=== PATIENT | female | born 1950 | race Caucasian/White ===

== ENCOUNTER 2020-03-03 11:42 | Outpatient (CLI) | payer MEDICARE, MEDICAID, SELFPAY ==
--- NOTE | ~2020-03-03 | XR_ITS ---
XR ankle RT min 3V 03/03/2020 12:09 INDICATION: Right ankle pain. No known injury. PROCEDURE: 4 views right ankle COMPARISON: No prior studies for comparison. FINDINGS: Fracture, dislocation or subluxation is not identified. The soft tissues appear within norm al limits. No foreign bodies are identified. IMPRESSION: 1: NO ACUTE BONE OR JOINT ABNORMALITY IDENTIFIED. Reviewed, dictated and finalized at location A.
== END 2020-03-03 11:43 | disposition home or self-care (01) ==
PROVIDERS: PCP Internal Medicine; Visit Provider Nurse Practitioner Family
DX: M25.571 Pain in right ankle and joints of right foot (principal)
CPT/HCPCS: 73610

== ENCOUNTER 2020-03-16 08:59 | Outpatient (CLI) | payer MEDICARE, MEDICAID, SELFPAY ==
[2020-03-16 09:32] LABS: Uric Acid 4.4 mg/dL (2.5-7.5)
== END 2020-03-16 09:00 | disposition home or self-care (01) ==
PROVIDERS: PCP Internal Medicine; Visit Provider Clinical Nurse Specialist
DX: M10.9 Gout, unspecified (principal)
CPT/HCPCS: 36415; 84550

== ENCOUNTER 2020-08-01 18:25 | Outpatient (CLI) | payer MEDICARE, MEDICAID, SELFPAY ==
--- NOTE | ~2020-08-01 | XR_ITS ---
EXAMINATION: XR chest 2V EXAM DATE: 08/01/2020 18:41 INDICATION: Cough for a few weeks. Shortness of breath. TECHNIQUE: Frontal and lateral projections of the chest obtained and reviewed. Comparison is made to prior examination from 03/31/2010. FINDINGS: The lungs are hyperinflated which can be seen with chronic obstructive pulmonary disease ( a clinical diagnosis of functional impairment), but is not diagnostic of it. No confluent consolidat ion, pneumothorax or pleural effusion suspected. Cardiomediastinal silhouette is normal. There is aor tic arteriosclerosis. There are mild bony degenerative changes. IMPRESSION: 1. Moderate hyperinflation. Reviewed, dictated and finalized at location B. IMPRESSION: 1. Moderate hyperinflation.
== END 2020-08-01 18:26 | disposition home or self-care (01) ==
PROVIDERS: PCP Internal Medicine; Visit Provider Clinical Nurse Specialist
DX: R05 Cough (principal); R06.02 Shortness of breath
CPT/HCPCS: 71046

== ENCOUNTER → 2020-08-31 14:48 | Outpatient (CLI) | payer MEDICARE, MEDICAID, SELFPAY ==
--- NOTE | ~2020-08-31 | XR_ITS ---
EXAMINATION: XR knee RT 2V DATE: 08/31/2020 15:25 INDICATION: Right knee pain. TECHNIQUE: 2 views of right knee were obtained. COMPARISON: Right knee radiographs 06/16/2015 FINDINGS: Bone alignment is normal. No fracture. There is mild tricompartmental osteoarthritis. There is chondrocalcinosis of the menisci. There is a small knee joint effusion. IMPRESSION: 1. Mild right knee osteoarthritis. 2. Small right knee joint effusion. Reviewed, dictated and finalized at location A. O TECHNICIAN
--- NOTE | ~2020-08-31 | XR_ITS ---
EXAMINATION: XR knee LT 2V DATE: 08/31/2020 15:26 INDICATION: Left knee pain. TECHNIQUE: 2 views of left knee were obtained. COMPARISON: Left knee radiographs 06/16/2015 FINDINGS: Bone alignment is normal. No fracture. There is mild tricompartmental osteoarthritis. There is chondrocalcinosis of the menisci. No knee joint effusion. IMPRESSION: 1. Mild left knee osteoarthritis. Reviewed, dictated and finalized at location A. ALLATION TECH
== END ==
PROVIDERS: Visit Provider Nurse Practitioner Family
DX: M17.0 Bilateral primary osteoarthritis of knee (principal); M25.461 Effusion, right knee
CPT/HCPCS: 73560

== ENCOUNTER → 2020-10-07 12:20 | Outpatient (CLI) | payer MEDICARE, MEDICAID, SELFPAY ==
--- NOTE | ~2020-10-07 | MM_ITS ---
EXAMINATION: MM screening syed BI w kayla HISTORY: Screening TECHNIQUE: Craniocaudal and mediolateral oblique 3-D tomosynthesis images were obtained and synthetic 2-D images were generated. CAD analysis was submitted and interpreted. COMPARISON: Comparison to multiple prior studies sequentially, with oldest reviewed study dated 06/16. BREAST PARENCHYMAL COMPOSITION: There are scattered areas of fibroglandular density. FINDINGS: There is no evidence of suspicious mass, calcification, or architectural distortion to sugg est malignancy in either breast. There has been no suspicious interval change. IMPRESSION: 1. No mammographic evidence of malignancy. 2. Recommend routine screening mammography in one year. BI-RADS Category 1: Negative Reviewed, dictated and finalized at location A. CH TRIMMER FINE
== END ==
PROVIDERS: PCP Internal Medicine; Visit Provider Internal Medicine
DX: Z12.31 Encounter for screening mammogram for malignant neoplasm of breast (principal)
CPT/HCPCS: 77063; 77067

== ENCOUNTER 2020-12-30 08:37 | Outpatient (CLI) | payer MEDICARE, MEDICAID, SELFPAY ==
[2020-12-30 08:59] LABS: Basophils Absolute Auto 0.1 K/mm3 (0.0-0.1); Basophils Percent Auto 0.7 % (0.2-1.2); Eosinophils Absolute Auto 0.2 K/mm3 (0-0.3); Eosinophils Percent Auto 2.2 % (0-4.4); Hematocrit 41.5 % (37.0-47.0); Hemoglobin 13.4 g/dL (12.0-15.0); Immature Granulocyte Absolute 0.02 K/mm3 (0.00-0.031); Immature Granulocyte Percent A 0.2 % (0-0.5); Lymphocytes Absolute Auto 1.89 K/mm3 (0.9-3.2); Lymphocytes Percent Auto 22.1 % (18.3-44.2); Mean Corpuscular HGB Conc 32.3 g/dl (32-36); Mean Corpuscular Hemoglobin 29.8 pg (26-34); Mean Corpuscular Volume 92.2 fl (80-100); Mean Platelet Volume 9.4 fl (7.4-10.4); Monocytes Absolute Auto 0.9 K/mm3 (0.1-0.6); Neutrophils Absolute Auto 5.5 K/mm3 (1.3-6.7); Neutrophils Percent Auto 64.8 % (45.5-73.1); Platelet Count Result 333 k/mm3 (150-375); Red Cell Distribution Width 12.9 % (11.5-14.5); White Blood Count 8.6 K/mm3 (4.5-10.0)
[2020-12-30 09:12] LABS: Alanine Aminotransferase 17 U/L (4-35); Albumin Level 4.1 g/dL (3.5-5.1); Alkaline Phosphatase 80 U/L (38-126); Anion Gap 4 mmol/L (8-16); Aspartate Amino Transferase 24 U/L (14-36); Bilirubin,Total 0.6 mg/dL (0.2-1.3); Blood Urea Nitrogen 24 mg/dL (7-17); Calcium 8.9 mg/dL (8.4-10.2); Carbon Dioxide 33 mmol/L (22-30); Chloride 104 mmol/L (98-107); Cholesterol 179 mg/dL (0-200); Estimated Glomerular Filt Rate > 60; Glucose 90 mg/dL (65-105); HDL Direct 54 mg/dL; Potassium 4.3 mmol/L (3.4-5.0); Sodium 141 mmol/L (137-145); Triglycerides 104 mg/dL (<150)
[2020-12-30 09:23] LABS: LDL Cholesterol Direct 88 mg/dL
== END 2020-12-30 08:38 | disposition home or self-care (01) ==
PROVIDERS: PCP Internal Medicine; Visit Provider Nurse Practitioner
DX: E78.5 Hyperlipidemia, unspecified (principal); I10 Essential (primary) hypertension; M19.90 Unspecified osteoarthritis, unspecified site
CPT/HCPCS: 36415; 80053; 80061; 85025

== ENCOUNTER 2021-01-18 15:04 | Outpatient (CLI) | payer MEDICARE, MEDICAID, SELFPAY ==
[2021-01-18 16:20] LABS: Add Urine Microscopic? YES; Appearance Urine Cloudy (Clear); Bacteria Urine Trace /hpf; Bilirubin Urine Negative (Negative); Color Urine Yellow (Yellow); Glucose Urine UA Negative (Negative); Ketones Urine Negative (Negative); Leukocyte Esterase Ur 3+ LEU/UL (Negative); Mucus Urine Rare /lpf; Nitrate Urine Negative (Negative); Protein Urine Negative (Negative); Specific Grav Ur 1.021 (1.001-1.035); Squamous Epithelial Cell Urine Many /hpf (Few); Urobilinogen Urine Negative mg/dL (<2.0)
[2021-01-18 16:34] LABS: Blood Urine Negative (Negative)
== END 2021-01-18 15:05 | disposition home or self-care (01) ==
LOC: ANHLAB 15:07
PROVIDERS: PCP Internal Medicine; Visit Provider Nurse Practitioner
DX: R30.0 Dysuria (principal)
CPT/HCPCS: 81001; 87086

== ENCOUNTER 2021-02-03 14:24 | Outpatient (CLI) | payer MEDICARE, MEDICAID, SELFPAY ==
--- NOTE | 2021-02-03 16:42 | WPDSIXMINUTE ---
Six Minute Walk This is a 6 minutes walk test. The test was performed and interpreted in accordance with the 2014 ERS/ATS task force guidelines. Findings: The patient's resting room air oxygen saturation measured by pulse oximetry was 96% and her heart rate was 63 bpm. Patient ambulated for 335 meters and oxygen saturation remained 91 to 95%. Heart rate at the end of the study was 84 bpm. There are no prior studies for comparison. Six Minute Walk Procedure Procedure Performed Pulmonary Stress Test (6 min walk)
--- NOTE | 2021-02-03 16:43 | P.PCNPFT_ITS ---
PFT Interpretation This is a pulmonary function test with pre and post-bronchodilator spirometry, plethysmography and diffusing capacity. The test was performed and results interpreted in accordance with the 2019 and 2005 ATS/ERS Task Force guidelines respectively using the Global Lung Function Initiative-2012 reference equations. Patient demonstrated good effort and c ooperation. Reproducibility criteria were met. The quality of the pre bronchodilator spirometry maneuver was Grade A and post bronchodilator spirometry maneuver was Grade A. Findings: Spirometry: there is decreased maximal expiratory airflow at all lung volumes with a concave expiratory flow tracing. The contour the inspiratory flow tracing is normal. The pre bronchodilator FVC is 2.76 L, 86% predicted. The pre bronchodilator FEV1 is 1.24 L, 50% predicted. The FEV1: FVC ratio is 45%. The post bronchodilator FVC is 2.91 L, representing a 5% increase. The post bronchodilator FEV1 is 1.50 L, representing a 21% increase. Plethysmography: The total lung capacity is 6.45 L, 114% predicted. The functional residual capacity is 4.57, 140% predicted. The residual volume is 3.69 L, 152% predicted. Diffusion capacity: The absolute diffusion capacity is 15.0, 68% predicted. The diffusing capacity corrected for alveolar volume is 3.77, 93% predicted. Impression: There is a moderately severe obstructive abnormality with significant improvement after inhaling a single dose of albuterol. The increase in residual volume is consistent with air trapping from an obstructive abnormali ty. Hyperinflation is present is demonstrated by the increase in functional residual capacity and is consistent with an obstructive abnormality. The absolute diffusing capacity is mildly decreased and normalizes when corrected for alveolar volume. There are no prior studies for comparison PFT Procedure Performed PFT Procedure Performed Spirometry with Pre/Post Bronchodilator Plethysmography (Lung Vol) Diffusing Cap (DLCO)
== END 2021-02-03 14:25 | disposition home or self-care (01) ==
PROVIDERS: PCP Internal Medicine; Visit Provider Internal Medicine Critical Care Medicine
DX: J44.9 Chronic obstructive pulmonary disease, unspecified (principal); R94.2 Abnormal results of pulmonary function studies
CPT/HCPCS: 94060; 94618; 94726; 94729

== ENCOUNTER 2021-02-07 10:04 | Outpatient (CLI) | payer MEDICARE, MEDICAID, SELFPAY ==
--- NOTE | 2021-02-27 14:17 | WPDHOMESLEEP ---
Sleep Study - Home Unattended Date of Study: 02/07/21 Ordering Provider: Manjinder Haddad MD Interpreting Provider: Eden Holden MD Home Sleep Study Type: Apnea Link Air Height: 1.73 m Weight: 95.254 kg Body Mass Index: 31.9 Neck Circumference (inches): 15.75 [place]: 6 Reason for Sleep Study Loud snoring Sleep History [place] Ambriz is a 70 year old female who constantly snores. Occasionally it is loud enough that there is complain about. She rarely awakens at night with heartburn, belching or coughing. She does not awaken from sleep feeling short of breath. She does not have trouble sleep with a cold. She does not gasp for breath during the night. She does not have breathing problems at night observed by others. She rarely sweats excessively at night. She occasionally notices her heart pounding or beating irregularly night. She does not fall asleep during the day. She rarely falls asleep involuntarily and never while driving. She does not have loss of muscle tone was strong emotion. She does not have daytime difficulties due to excessive sleepiness. She does not feel paralyzed on waking or falling asleep. She does not have vivid dreamlike scenes upon awakening or falling asleep. She does not feel afraid to go to sleep. She rarely has nightmares and rarely remembers her dreams. She does not have racing thoughts. She occasionally feels sad or depressed. She does not have anxiety. She rarely has muscular tension. She occasionally notices parts of her body jerking. She occasionally kicks at night. She frequently has crawling and aching feelings in the legs and leg pain at night. She does not have morning jaw pain. She constantly is bothered by pain during the day and constantly is awakened by pain at night. She frequently wakes up feeling stiff the morning with sore achy muscles. She frequently wakes up with pain in the neck and spine. She has palpitations and takes antacids regularly. She feels depressed at times. Normal bedtime is 12 midnight taking 5-15 minutes to fall asleep typically awaken 2-4 times at night for a few minutes, gets a drink of water goes to the bathroom and is able to return to sleep. She wakes the morning between 6 and 7:00 a.m.. Weekend schedule is the same. Her sleep is disturbed by nocturia. She does not take naps. Habits: Quit tobacco years ago. Caffeine 3 cups a day. No alcohol or recreational drugs. [facility] Past Medical History Medical History (Updated 02/27/21 @ 14:33 by Eden Holden MD) Chicken pox COPD (chronic obstructive pulmonary disease) Environmental allergies Essential hypertension Heartburn HLD (hyperlipidemia) Hypercholesterolemia Kidney disease Lumbar radiculopathy Osteoarthritis TB (tuberculosis), treated Thyroid disease Whooping cough treated Surgical History Surgical History H/O prior ablation treatment Ventricular tachycardia ablation History of cholecystectomy History of hysterectomy History of knee surgery History of tonsillectomy and adenoidectomy Family History Family History Sibling Family history of lung cancer Hypertension Father Lung cancer COPD (chronic obstructive pulmonary disease) Mother Sepsis Asthma COPD (chronic obstructive pulmonary disease) Hx of blood clots Sibling Asthma COPD (chronic obstructive pulmonary disease) Anemia Son Hypertension Diabetes mellitus HLD (hyperlipidemia) Other Cerebrovascular accident Family history of arthritis Family history of lung disease Family history of seizure disorder Social History Social History Smoking status: Former smoker Smoking end date: 10/28/06 Alcohol intake: never Medications Home Medications Medication Instructions Recorded Confirmed Type ascorbate calcium (vitamin C)
[2021-02-27 14:49] VITALS: BMI 31.9
== END 2021-02-07 10:05 | disposition home or self-care (01) ==
LOC: ANHCSM 10:05
PROVIDERS: PCP Internal Medicine; Visit Provider Internal Medicine Critical Care Medicine
DX: J44.9 Chronic obstructive pulmonary disease, unspecified (principal)
CPT/HCPCS: 95806

== ENCOUNTER 2021-04-10 16:28 | Outpatient (CLI) | payer MEDICARE, MEDICAID, SELFPAY ==
[2021-04-10 17:23] LABS: Basophils Percent Auto 0.1 % (0.2-1.2); Hematocrit 41.5 % (37.0-47.0); Hemoglobin 13.9 g/dL (12.0-15.0); Immature Granulocyte Absolute 0.12 K/mm3 (0.00-0.031); Immature Granulocyte Percent A 0.8 % (0-0.5); Lymphocytes Absolute Auto 0.72 K/mm3 (0.9-3.2); Mean Corpuscular HGB Conc 33.5 g/dl (32-36); Mean Corpuscular Hemoglobin 29.4 pg (26-34); Mean Corpuscular Volume 87.7 fl (80-100); Mean Platelet Volume 9.6 fl (7.4-10.4); Monocytes Absolute Auto 0.1 K/mm3 (0.1-0.6); Monocytes Percent Auto 0.8 % (2.6-8.5); Neutrophils Absolute Auto 13.3 K/mm3 (1.3-6.7); Neutrophils Percent Auto 93.3 % (45.5-73.1); Platelet Count Result 387 k/mm3 (150-375); Red Blood Count 4.73 M/mm3 (4.2-5.4); White Blood Count 14.3 K/mm3 (4.5-10.0)
[2021-04-10 17:32] LABS: Alanine Aminotransferase 19 U/L (4-35); Albumin Level 4.4 g/dL (3.5-5.1); Alkaline Phosphatase 88 U/L (38-126); Anion Gap 9 mmol/L (8-16); Aspartate Amino Transferase 23 U/L (14-36); Bilirubin,Total 0.5 mg/dL (0.2-1.3); Blood Urea Nitrogen 14 mg/dL (7-17); Calcium 9.7 mg/dL (8.4-10.2); Carbon Dioxide 33 mmol/L (22-30); Chloride 99 mmol/L (98-107); Estimated Glomerular Filt Rate > 60; Glucose 145 mg/dL (65-105); Potassium 3.6 mmol/L (3.4-5.0); Sodium 141 mmol/L (137-145)
[2021-04-10 18:01] LABS: Thyroid Stimulating Hormone 0.424 uIU/mL (0.465-4.680)
== END 2021-04-10 16:29 | disposition home or self-care (01) ==
PROVIDERS: PCP Internal Medicine; Visit Provider Nurse Practitioner
DX: M54.2 Cervicalgia (principal)
CPT/HCPCS: 36415; 80053; 84443; 85025

== ENCOUNTER → 2021-04-18 02:23 | Outpatient (CLI) | payer MEDICARE, MEDICAID, SELFPAY ==
[2021-04-19 16:05] LABS: SARS-CoV-2 RNA PCR Negative
== END ==
PROVIDERS: PCP Internal Medicine; Visit Provider Internal Medicine Critical Care Medicine
DX: Z20.822 Contact with and (suspected) exposure to COVID-19 (principal)
CPT/HCPCS: C9803; U0003; U0005

== ENCOUNTER 2021-04-18 10:21 | Outpatient (CLI) | payer MEDICARE, MEDICAID, SELFPAY ==
--- NOTE | ~2021-04-18 | MR_ITS ---
EXAMINATION: MR brain/brain stem wo/w con DATE: 04/18/2021 11:48 INDICATION: Headache TECHNIQUE: Magnetic resonance imaging (MRI) of the brain and brainstem was performed without and with 19 cc MultiHance intravenous contrast. Sequences included sagittal and axial T1-weighted SE, axial d iffusion-weighted FS SE, axial T2*-weighted GRE, axial T2-weighted FLAIR Propeller, and axial T2-weig hted Propeller. Apparent diffusion coefficient (ADC) maps were created. COMPARISON: No prior studies for comparison. . FINDINGS: Normal brain parenchymal volume for age. Normal oconnor-white differentiation. No evidence for acute infarction, hemorrhage, mass or mass effect. No abnormal contrast enhancement. There are scatt ered mild periventricular and subcortical white matter changes, most likely related to small vessel i schemic disease (microangiopathy). Paranasal sinuses are unremarkable. Orbits are symmetric without d isconjugate gaze. IMPRESSION: 1. No acute intracranial abnormality. 2: Chronic age-related findings. Reviewed, dictated and finalized at location B.
== END 2021-04-18 10:22 | disposition home or self-care (01) ==
PROVIDERS: PCP Internal Medicine; Visit Provider Nurse Practitioner
DX: R51.9 Headache, unspecified (principal); H53.8 Other visual disturbances
CPT/HCPCS: 70553; A9577; C9803; U0003; U0005

== ENCOUNTER 2021-04-21 08:54 | Outpatient (CLI) | payer MEDICARE, MEDICAID, SELFPAY ==
--- NOTE | 2021-05-15 11:30 | WPDSLEEPSTUD ---
Sleep Study Date of Study: 04/21/21 Ordering Provider: Manjinder HaddadMD Interpreting Physician: Eden Holden MD Sleep Study Type: CPAP Titration Height: 1.73 m Weight: 77.564 kg Body Mass Index: 25.9 Neck Circumference (inches): 17.5 Reason for Sleep Study [place] Ambriz is a 70-year-old female with COPD and a prior home sleep test on February 07, 2021 with moderate obstructive sleep apnea AHI is 26.3, desaturation to 80% and 41 minutes spent below 88% with frequent snoring. She presents now for a CPAP titration. Sleep History [place] Ambriz complains of constant snoring which is occasionally loud enough that others complain. She rarely awakens at night with heartburn, belching or coughing. She does not awaken from sleep feeling short of breath. She does not have trouble sleep with a cold. She does not gasp for breath during the night. She does not have breathing problems at night observed by others. She rarely sweats excessively at night. She occasionally notices her heart pounding or beating irregularly night. She does not fall asleep during the day. She rarely falls asleep involuntarily and never while driving. She does not have loss of muscle tone with strong emotion. She does not have daytime difficulties due to excessive sleepiness. She does not feel paralyzed on waking or falling asleep. She does not have vivid dreamlike scenes upon awakening or falling asleep. She does not feel afraid to go to sleep. She rarely has nightmares and rarely remembers her dreams. She does not have racing thoughts. She occasionally feels sad or depressed. She does not have anxiety. She rarely has muscular tension. She occasionally notices parts of her body jerking. She occasionally kicks at night. She frequently has crawling and aching feelings in the legs and leg pain at night. She does not have morning jaw pain. She constantly is bothered by pain during the day and constantly is awakened by pain at night. She frequently wakes up feeling stiff the morning with sore achy muscles. She frequently wakes up with pain in the neck and spine. She has palpitations and takes antacids regularly. She feels depressed at times. Normal bedtime is 12 midnight taking 5-15 minutes to fall asleep typically awaken 2-4 times at night for a few minutes, gets a drink of water goes to the bathroom and is able to return to sleep. She wakes the morning between 6 and 7:00 a.m.. Weekend schedule is the same. Her sleep is disturbed by nocturia. She does not take naps. Habits: Quit tobacco years ago. Caffeine 3 cups a day. No alcohol or recreational drugs. [facility] Past Medical History Medical History Chicken pox COPD (chronic obstructive pulmonary disease) Environmental allergies Essential hypertension Heartburn HLD (hyperlipidemia) Hypercholesterolemia Kidney disease Lumbar radiculopathy Osteoarthritis TB (tuberculosis), treated Thyroid disease Whooping cough treated Surgical History Surgical History H/O prior ablation treatment Ventricular tachycardia ablation History of cholecystectomy History of hysterectomy History of knee surgery History of tonsillectomy and adenoidectomy Family History Family History Sibling Family history of lung cancer Hypertension Father Lung cancer COPD (chronic obstructive pulmonary disease) Mother Sepsis Asthma COPD (chronic obstructive pulmonary disease) Hx of blood clots Sibling Asthma COPD (chronic obstructive pulmonary disease) Anemia Son Hypertension Diabetes mellitus HLD (hyperlipidemia) Other Cerebrovascular accident Family history of arthritis Family history of lung disease Family history of seizure disorder Social History Social History (Updated 05/03/21 @ 15:12 by Stella Coffman CMA) Social History:
[2021-05-15 11:33] VITALS: BMI 25.9
== END 2021-04-24 09:52 | disposition home or self-care (01) ==
LOC: ANHCSM 08:55
PROVIDERS: PCP Internal Medicine; Visit Provider Internal Medicine Critical Care Medicine
DX: G47.33 Obstructive sleep apnea (adult) (pediatric) (principal); G25.81 Restless legs syndrome
CPT/HCPCS: 95811

== ENCOUNTER 2021-04-26 14:56 | Outpatient (CLI) | payer MEDICARE, MEDICAID, SELFPAY ==
[2021-04-26 15:21] LABS: Basophils Absolute Auto 0.1 K/mm3 (0.0-0.1); Basophils Percent Auto 0.6 % (0.2-1.2); Eosinophils Absolute Auto 0.2 K/mm3 (0-0.3); Eosinophils Percent Auto 1.8 % (0-4.4); Hematocrit 39.3 % (37.0-47.0); Immature Granulocyte Absolute 0.11 K/mm3 (0.00-0.031); Immature Granulocyte Percent A 1.1 % (0-0.5); Lymphocytes Absolute Auto 2.16 K/mm3 (0.9-3.2); Lymphocytes Percent Auto 20.7 % (18.3-44.2); Mean Corpuscular HGB Conc 33.1 g/dl (32-36); Mean Corpuscular Hemoglobin 29.5 pg (26-34); Mean Corpuscular Volume 89.3 fl (80-100); Mean Platelet Volume 9.2 fl (7.4-10.4); Monocytes Percent Auto 9.5 % (2.6-8.5); Neutrophils Percent Auto 66.3 % (45.5-73.1); Platelet Count Result 312 k/mm3 (150-375); Red Cell Distribution Width 13.4 % (11.5-14.5); White Blood Count 10.5 K/mm3 (4.5-10.0)
== END 2021-04-26 14:57 | disposition home or self-care (01) ==
PROVIDERS: PCP Internal Medicine; Visit Provider Nurse Practitioner
DX: E07.9 Disorder of thyroid, unspecified (principal); D72.829 Elevated white blood cell count, unspecified
CPT/HCPCS: 36415; 84443; 85025

== ENCOUNTER 2021-05-11 13:02 | Outpatient (CLI) | payer MEDICARE, MEDICAID, SELFPAY ==
--- NOTE | ~2021-05-11 | CT_ITS ---
EXAMINATION:CT lung screening DATE: 05/11/2021 13:52 INDICATION: Personal history of tobacco dependence. Smoker who quit 14 years ago with 35 pack year hi story. TECHNIQUE: Computed tomography (CT) of the chest was performed without intravenous contrast. Automate d exposure control and iterative reconstruction technique were employed. The dose-length product (DLP ) was 188.83 mGy-cm. COMPARISON: CT abdomen and pelvis 06/15/2019, neck CT 07/28/2019 FINDINGS: There is mild emphysema. There is mild atelectasis bilaterally. Calcified pulmonary nodules and calcified hilar and mediastinal lymph nodes are consistent with old granulomatous disease. There is a 12 mm nodule in left upper lobe. There is a cluster of mild groundglass opacities and centrilob ular nodules in left upper lobe. There is mild scarring at the lung apices. No pleural effusion. The heart size is normal. There are coronary artery calcifications. There are calcifications of aortic va lve. No pericardial effusion. There is a small sliding hernia. Calcifications in the spleen are consi stent with old granulomatous disease. There is mild thoracic spondylosis. IMPRESSION: 1. Lung-RADS category 4A: Suspicious. PET/CT or 3-month noncontrast low-dose chest CT is recommended . Reviewed, dictated and finalized at location A. IMPRESSION: 1. Lung-RADS category 4A: Suspicious. PET/CT or 3-month noncontrast low-dose c hest CT is recommended.
== END 2021-05-11 13:03 | disposition home or self-care (01) ==
LOC: ANHIMG 13:04
PROVIDERS: PCP Internal Medicine; Visit Provider Nurse Practitioner Family
DX: Z12.2 Encounter for screening for malignant neoplasm of respiratory organs (principal); Z87.891 Personal history of nicotine dependence; R91.8 Other nonspecific abnormal finding of lung field
CPT/HCPCS: 71271

== ENCOUNTER 2021-05-24 13:34 | Outpatient (CLI) | payer MEDICARE, MEDICAID, SELFPAY ==
--- NOTE | ~2021-05-24 | US_ITS ---
EXAMINATION: US venous doppler LE RT DATE: 05/24/2021 14:10 INDICATION: Sudden pain and swelling at the right lower limb TECHNIQUE: Grayscale ultrasound images without and with compression and Doppler ultrasound images of the right lower extremity veins were obtained. COMPARISON: 08/19/2015 FINDINGS: The visualized portions of right common femoral vein, profunda (deep) femoral vein, femoral vein, pop liteal vein, posterior tibial veins, peroneal veins, gastrocnemius vein and greater saphenous vein ou tflow are patent. IMPRESSION: 1. No deep venous thrombosis in the right lower limb. Reviewed, dictated and finalized at location A.
== END 2021-05-24 13:35 | disposition home or self-care (01) ==
LOC: ANHIMG 13:35
PROVIDERS: PCP Internal Medicine; Visit Provider Clinical Nurse Specialist
DX: M79.89 Other specified soft tissue disorders (principal)
CPT/HCPCS: 93971

== ENCOUNTER 2021-05-25 14:33 | Outpatient (CLI) | payer MEDICARE, MEDICAID, SELFPAY ==
--- NOTE | ~2021-05-25 | US_ITS ---
US thyroid INDICATION: Thyroid disease. TECHNIQUE: Real-time sonographic images of the thyroid gland were obtained. COMPARISON: No prior studies for comparison. FINDINGS: The right thyroid lobe measures 4.4 x 1.5 x 1.3 cm. The left thyroid lobe measures 3.9 x 1 .4 x 1.5 cm. There is normal echotexture and echogenicity throughout the thyroid gland. No discrete n odules identified. Normal vascular flow is present. IMPRESSION: 1. Normal thyroid without discrete nodule or abnormal vascularity. Reviewed, dictated and finalized at location A.
== END 2021-05-25 14:34 | disposition home or self-care (01) ==
LOC: ANHIMG 14:37
PROVIDERS: Nurse Practitioner Family; PCP Internal Medicine; Visit Provider Nurse Practitioner
DX: E07.89 Other specified disorders of thyroid (principal); G25.81 Restless legs syndrome; E05.90 Thyrotoxicosis, unspecified without thyrotoxic crisis or storm; Z51.81 Encounter for therapeutic drug level monitoring; Z79.899 Other long term (current) drug therapy
CPT/HCPCS: 36415; 76536; 82728

== ENCOUNTER 2021-06-06 00:31 | Day surgery (SDC) | payer MEDICARE, MEDICAID, SELFPAY ==
[2021-05-29 14:07] VITALS: BMI 31.8
[2021-06-06 07:37] VITALS: BP 135/66; PULSE 83; RESP 18; TEMP 36.1; O2SAT 96; BMI 33.5
--- NOTE | 2021-06-06 07:58 | WPDANESEPPF ---
Anes - Initial Pre Proc Eval Procedure: Operation Date: 06/06/21 09:00 Proposed Procedures p Esophagogastroduodenoscopy & Screening Colonoscopy - Jerry Lockhart MD Date/Time: 06/06/21 07:58 Surgeon: Jerry Lockhart MD Pre Op Diagnosis: neoplasm screening,GERD Patient Data Age: 71 Gender: F Height: 1.73 m Weight: 100.1 kg Last Vital Signs Temp 36.1 C L 06/06/21 07:37 Pulse 83 06/06/21 07:37 Resp 18 06/06/21 07:37 BP 135/66 06/06/21 07:37 Pulse Ox 96 06/06/21 07:37 Allergies Allergy/AdvReac Type Severity Reaction Status Date / Time codeine Allergy Mild Hives Verified 06/06/21 07:47 diclofenac Allergy Mild HIVES Verified 06/06/21 07:47 tuberculin, purified protein Allergy Mild Swelling Verified 06/06/21 07:47 deriva adhesive tape AdvReac Intermediate Blister Verified 06/06/21 07:47 Contrast Media Allergy Mild Hives Uncoded 06/06/21 07:47 Home Medications Medication Instructions Recorded Confirmed Type ascorbate calcium (vitamin C) 500 500 mg PO DAILY 11/26/19 06/06/21 History mg tablet cholecalciferol (vitamin D3) 25 1,000 unit PO DAILY 11/26/19 06/06/21 History mcg (1,000 unit) capsule thiamine HCl (vitamin B1) 50 mg 50 mg PO DAILY 11/26/19 06/06/21 History tablet tizanidine 4 mg capsule 4 mg PO BID cap 11/26/19 06/06/21 History diltiazem HCl 120 mg 120 mg PO BID cap 04/21/20 06/06/21 History capsule,extended release 24 hr, controlled sertraline 50 mg tablet 50 mg PO DAILY #90 tablet 02/15/21 06/06/21 Rx pravastatin 40 mg tablet See Rx Instructions .ROUTE 02/24/21 06/06/21 Rx .COMPLEX #90 tablet albuterol sulfate 90 mcg/actuation 1 puff INHALATION Q4H PRN #18 g 03/16/21 06/06/21 Rx aerosol inhaler fluticasone propionate 110 1 puff INHALATION Q12H 90 Days #36 05/02/21 06/06/21 Rx mcg/actuation HFA aerosol inhaler g tiotropium bromide 2.5 2 inh INHALATION QAM 90 Days #12 g 05/02/21 06/06/21 Rx mcg/actuation mist for inhalation famotidine 40 mg tablet 40 mg PO DAILY #90 tablet 05/11/21 06/06/21 Rx hydrochlorothiazide 12.5 mg tablet 12.5 mg PO DAILY #90 tablet 05/11/21 06/06/21 Rx Patient hx anesthesia problems: none Family hx anesthesia problems: none PMFSH Past Medical History Medical History Chicken pox COPD (chronic obstructive pulmonary disease) Environmental allergies Essential hypertension Heartburn HLD (hyperlipidemia) Hypercholesterolemia Kidney disease Lumbar radiculopathy Osteoarthritis TB (tuberculosis), treated Thyroid disease Whooping cough treated Surgical History Surgical History H/O prior ablation treatment Ventricular tachycardia ablation History of cholecystectomy History of hysterectomy History of knee surgery History of tonsillectomy and adenoidectomy Family History Family History Sibling Family history of lung cancer Hypertension Father Lung cancer COPD (chronic obstructive pulmonary disease) Mother Sepsis Asthma COPD (chronic obstructive pulmonary disease) Hx of blood clots Sibling Asthma COPD (chronic obstructive pulmonary disease) Anemia Son Hypertension Diabetes mellitus HLD (hyperlipidemia) Other Cerebrovascular accident Family history of arthritis Family history of lung disease Family history of seizure disorder Social History Social History (Updated 06/06/21 @ 07:59 by Otis Hernandez MD) Social History: 35-40 pack year Smoking packs per day: 1 Smoking cigarettes per day: 20.0 Years smoked: 35 Smoking pack-years: 35.00 Smoking status: Former smoker Tobacco type: cigarettes Smoking end date: 10/28/06 Alcohol intake: never Substance use: never Substance use type: does not use Living arrangements: alone Spiritual care concerns: No Anes - Eval Final P
[2021-06-06] MEDS: LACTATED RINGERS 1,000 ML 150 ML IV CONT (08:07)
--- NOTE | 2021-06-06 08:31 | PM.HPGS ---
History of Present Illness History of Present Illness Consent: Risks, benefits, and alternatives have been discussed and questions answered. Patient agrees to proceed with procedure. Chief complaint: neoplasm screening,GERD Narrative: [place] Ambriz is a 71 year old female with non-cardiac chest pain, using famotidine, egd several years ago. Colon polyp 6 years ago. Review of Systems Constitutional: Constitutional: Denies headache(s) and Denies weakness Eyes: Eyes: Denies blurry vision ENT: Reports Normal hearing present, Denies headache(s) and Denies neck pain Cardiovascular: Cardiovascular: Denies chest pain and Denies dyspnea Respiratory: Respiratory: Denies dyspnea Gastrointestinal: Gastrointestinal: Reports no additional gastrointestinal complaints Genitourinary: Genitourinary: Denies dysuria Musculoskeletal: Musculoskeletal: Denies neck pain Integumentary/Breasts: Skin/Breast: Denies dry skin Neurologic: Reports Normal hearing present, Denies headache(s) and Denies weakness Psychiatric: Psychiatric: Denies anxiety Endocrine: Endocrine: Denies change in body appearance Hematologic/Lymphatic: Hematologic/Lymphatic: Denies easy bleeding Allergic/Immunologic: Allergic/Immunologic: Denies urticaria PMFSH Past Medical History Medical History (Updated 06/06/21 @ 08:31 by Jerry Lockhart MD) Chicken pox Colon polyp COPD (chronic obstructive pulmonary disease) Environmental allergies Essential hypertension Heartburn HLD (hyperlipidemia) Hypercholesterolemia Kidney disease Lumbar radiculopathy Non-cardiac chest pain Osteoarthritis TB (tuberculosis), treated Thyroid disease Whooping cough treated Surgical History Surgical History H/O prior ablation treatment Ventricular tachycardia ablation History of cholecystectomy History of hysterectomy History of knee surgery History of tonsillectomy and adenoidectomy Family History Family History Sibling Family history of lung cancer Hypertension Father Lung cancer COPD (chronic obstructive pulmonary disease) Mother Sepsis Asthma COPD (chronic obstructive pulmonary disease) Hx of blood clots Sibling Asthma COPD (chronic obstructive pulmonary disease) Anemia Son Hypertension Diabetes mellitus HLD (hyperlipidemia) Other Cerebrovascular accident Family history of arthritis Family history of lung disease Family history of seizure disorder Social History Social History (Updated 06/06/21 @ 07:59 by Otis Hernandez MD) Social History: 35-40 pack year Smoking packs per day: 1 Smoking cigarettes per day: 20.0 Years smoked: 35 Smoking pack-years: 35.00 Smoking status: Former smoker Tobacco type: cigarettes Smoking end date: 10/28/06 Alcohol intake: never Substance use: never Substance use type: does not use Living arrangements: alone Spiritual care concerns: No Meds Home Medications and Allergies Home Medications Medication Instructions Recorded Confirmed Type ascorbate calcium (vitamin C) 500 500 mg PO DAILY 11/26/19 06/06/21 History mg tablet cholecalciferol (vitamin D3) 25 1,000 unit PO DAILY 11/26/19 06/06/21 History mcg (1,000 unit) capsule thiamine HCl (vitamin B1) 50 mg 50 mg PO DAILY 11/26/19 06/06/21 History tablet tizanidine 4 mg capsule 4 mg PO BID cap 11/26/19 06/06/21 History diltiazem HCl 120 mg 120 mg PO BID cap 04/21/20 06/06/21 History capsule,extended release 24 hr, controlled sertraline 50 mg tablet 50 mg PO DAILY #90 tablet 02/15/21 06/06/21 Rx pravastatin 40 mg tablet See Rx Instructions .ROUTE 02/24/21 06/06/21 Rx .COMPLEX #90 tablet albuterol sulfate 90 mcg/actuation 1 puff INHALATION Q4H PRN #18 g 03/16/21 06/06/21 Rx aerosol inhaler fluticasone propionate 110 1 puff INHALATION Q12H 90 Days #36 05/02/21 06/06/21 Rx
[2021-06-06 09:08] VITALS: BP 98/42; PULSE 70; RESP 16; O2SAT 99
[2021-06-06 09:18] VITALS: BP 104/50; PULSE 72; RESP 20; O2SAT 98
[2021-06-06 09:28] VITALS: BP 118/53; PULSE 73; RESP 16; O2SAT 98
== END 2021-06-06 10:00 | disposition home or self-care (01) ==
PROVIDERS: PCP Internal Medicine; Visit Provider Internal Medicine Gastroenterology
PROC: 0DJ08ZZ Inspection of Upper Intestinal Tract, Via Natural or Artificial Opening Endoscopic (ICD-10-PCS; CPT 43235; principal; 2021-06-06 09:00)
DX: Z12.11 Encounter for screening for malignant neoplasm of colon (principal); Z86.010 Personal history of colon polyps; K57.30 Diverticulosis of large intestine without perforation or abscess without bleeding; K64.8 Other hemorrhoids; K44.9 Diaphragmatic hernia without obstruction or gangrene; R07.89 Other chest pain; K21.9 Gastro-esophageal reflux disease without esophagitis; J44.9 Chronic obstructive pulmonary disease, unspecified; I10 Essential (primary) hypertension; R12 Heartburn; E78.5 Hyperlipidemia, unspecified; E78.00 Pure hypercholesterolemia, unspecified; M19.90 Unspecified osteoarthritis, unspecified site; M54.16 Radiculopathy, lumbar region; E07.9 Disorder of thyroid, unspecified; Z90.49 Acquired absence of other specified parts of digestive tract; Z86.11 Personal history of tuberculosis; Z87.891 Personal history of nicotine dependence; Z79.51 Long term (current) use of inhaled steroids; E66.9 Obesity, unspecified; Z68.33 Body mass index [BMI] 33.0-33.9, adult
CPT/HCPCS: 43239; G0105; 88305; J2704; J7120

== ENCOUNTER 2021-07-26 15:46 | Outpatient (CLI) | payer MEDICARE, MEDICAID, SELFPAY ==
--- NOTE | ~2021-07-26 | XR_ITS ---
XR tibia fibula RT 2V DATE: 07/26/2021 16:10 INDICATION: Nonhealing catheter by a long anterior distal lower leg 3 weeks ago TECHNIQUE: AP and lateral views COMPARISON: None FINDINGS: Prominent chondrocalcinosis is noted at the medial and lateral compartments of the right kn ee joint. No fracture or dislocation, periosteal reaction or bone destruction of the tibia or fibula. Normal al ignment at the knee and ankle joints. No radiopaque soft tissue foreign body or subcutaneous emphysema is evident. IMPRESSION: Prominent chondrocalcinosis at the medial and lateral compartments of the knee joint No radiopaque soft tissue foreign body or subcutaneous emphysema, periosteal reaction or bone destruc tion Reviewed, dictated and finalized at location B. IMPRESSION: Prominent chondrocalcinosis at the medial and lateral compartments of the knee joint No radiopaque soft tissue foreign body or subcutaneous emphysema, periosteal re action or bone destruction
== END 2021-07-26 15:47 | disposition home or self-care (01) ==
LOC: ANHIMG 15:53
PROVIDERS: PCP Internal Medicine; Visit Provider Clinical Nurse Specialist
DX: S91.051A Open bite, right ankle, initial encounter (principal); L03.90 Cellulitis, unspecified; M11.20 Other chondrocalcinosis, unspecified site
CPT/HCPCS: 73590

== ENCOUNTER 2021-08-01 08:01 | Outpatient (CLI) | payer MEDICARE, MEDICAID, SELFPAY ==
--- NOTE | ~2021-08-01 | MR_ITS ---
EXAMINATION: MR lower leg RT wo/w con DATE: 08/01/2021 09:42 INDICATION: Cellulitis post cat bite with pain and swelling in the right lower leg. TECHNIQUE: Magnetic resonance imaging (MRI) of the right lower leg was performed without and with 19 mL Multihance intravenous contrast. A marker was placed over the site of persistent pain and erythem a. Sequences included axial, sagittal and coronal T1-weighted FSE and fluid sensitive FSE STIR, axial T1-weighted FS FSE and post contrast axial, sagittal and coronal T1-weighted FS FSE were also obtain ed. The contralateral left lower leg is included on the coronal images. COMPARISON: Radiographs dated 07/26/2021 FINDINGS: There is skin thickening along the medial side of the right lower leg. There is more diffuse subcutan eous edema throughout the mid to distal right lower leg. Small amount of non masslike enhancement mina ng the septations in the subcutaneous fat immediately underlying the marker indicating the region of concern. Findings are consistent with cellulitis. No abscess or other abnormal fluid collections. The musculature of the right lower leg remains normal. Ganglion cyst at the posterolateral aspect of the right ankle which measures up to 2.7 x 1.3 x 1.0 cm in maximal dimensions. No ankle joint effusion. The tendons at the right ankle are unremarkable. Bone alignment is normal. Normal bone marrow signal throughout. No reactive edema or periostitis, fracture, osteomyelitis or other pathologic marrow repl acing process. IMPRESSION: 1. Subcutaneous edema, skin thickening and mild non masslike enhancement in the subcutaneous fat cent ered at the marker indicating the region of concern consistent with cellulitis. No abscess, myositis or osteomyelitis. Reviewed, dictated and finalized at location B. IMPRESSION: 1. Subcutaneous edema, skin thickening and mild non masslike enhancement in the subcutaneous fat centered at the marker indicating the region of concern consi stent with cellulitis. No abscess, myositis or osteomyelitis.
[2021-08-01 08:57] LABS: Estimated Glomerular Filt Rate > 60
== END 2021-08-01 08:02 | disposition home or self-care (01) ==
PROVIDERS: PCP Internal Medicine; Visit Provider Internal Medicine
DX: M79.661 Pain in right lower leg (principal); M79.89 Other specified soft tissue disorders; L03.115 Cellulitis of right lower limb
CPT/HCPCS: 73720; A9577

== ENCOUNTER 2021-08-12 09:50 | Outpatient (CLI) | payer MEDICARE, MEDICAID, SELFPAY ==
--- NOTE | ~2021-08-12 | CT_ITS ---
EXAMINATION: CT diagnostic chest wo con DATE: 08/12/2021 10:29 INDICATION: Solitary pulmonary nodule TECHNIQUE: Computed tomography (CT) of the chest was performed without intravenous contrast. The dose -length product was 228.29 mGy-cm. Automated exposure control and iterative reconstruction technique were employed. COMPARISON: CT dated 05/11/2021 FINDINGS: No thoracic lymphadenopathy. Nonenlarged mediastinal lymph nodes, likely reactive. Calcifie d right hilar lymph nodes, consistent with chronic granulomatous disease. Heart size is normal. There are calcified granulomas of the spleen. There is questionable intrahepatic biliary dilatation left h epatic lobe. Consider correlation with contrast-enhanced CT. There is mild emphysema. No endobronchia l lesions. There are persistent groundglass opacities of the left upper lobe. There is a pleural-base d left upper lobe mass which may be minimally increased in size measuring 1.3 x 0.9 cm compared with 1.2 x 0.9 cm on prior examination. There are additional smaller nodules scattered throughout both mauro gs measuring 3 mm or less. There is coronary atherosclerosis. Heart size is normal. There is calcific ation of the aortic valve. Small hiatal hernia. There are calcified granulomas of the spleen. IMPRESSION: 1. Possible slight increased size of left upper lobe nodule abutting the pleural surface measuring 1. 3 x 0.9 cm. Consider correlation with pet/CT scan or percutaneous biopsy. Reviewed, dictated and finalized at location A. IMPRESSION: 1. Possible slight increased size of left upper lobe nodule abutting the pleura l surface measuring 1.3 x 0.9 cm. Consider correlation with pet/CT scan or perc utaneous biopsy.
== END 2021-08-12 09:51 | disposition home or self-care (01) ==
LOC: ANHIMG 09:54
PROVIDERS: PCP Internal Medicine; Visit Provider Nurse Practitioner Family
DX: R91.1 Solitary pulmonary nodule (principal)
CPT/HCPCS: 71250

== ENCOUNTER → 2021-10-09 10:00 | Outpatient (CLI) | payer MEDICARE, MEDICAID, SELFPAY ==
--- NOTE | ~2021-10-09 | MM_ITS ---
EXAMINATION: MM screening [facility] BI w kayla HISTORY: Screening mammogram TECHNIQUE: Craniocaudal and mediolateral oblique 3-D tomosynthesis images were obtained and synthetic 2-D images were generated. CAD analysis was submitted and interpreted. COMPARISON: 10/07/2020, 08/15/2019 BREAST PARENCHYMAL COMPOSITION: The breasts are heterogeneously dense, which may obscure small masses . FINDINGS: Scattered benign-appearing calcifications are present. There is no evidence of suspicious m ass, calcification, or architectural distortion to suggest malignancy in either breast. There has bee n no suspicious interval change. IMPRESSION: 1. No mammographic evidence of malignancy. 2. Recommend routine screening mammography in one year. BI-RADS Category 2: Benign finding(s). Reviewed, dictated and finalized at location A. O WRITER OPERATOR
== END ==
PROVIDERS: PCP Internal Medicine; Visit Provider Internal Medicine
DX: Z12.31 Encounter for screening mammogram for malignant neoplasm of breast (principal)
CPT/HCPCS: 77063; 77067

== ENCOUNTER 2021-11-13 10:13 | Outpatient (CLI) | payer MEDICARE, MEDICAID, SELFPAY ==
--- NOTE | ~2021-11-13 | CT_ITS ---
EXAMINATION:CT diagnostic chest wo con DATE: 11/13/2021 10:32 INDICATION: Solitary pulmonary nodule. TECHNIQUE: Computed tomography (CT) of the chest was performed without intravenous contrast. Automate d exposure control and iterative reconstruction technique were employed. The dose-length product (DLP ) was 208.10 mGy-cm. COMPARISON: Chest CT 08/12/2021, 05/11/2021 FINDINGS: There is mild scarring at the lung apices. There is mild atelectasis bilaterally. Calcified bilateral lung nodules and calcified hilar and mediastinal lymph nodes are consistent with old granu lomatous disease. There is a 14 mm nodule in left upper lobe, increased from 11 mm on 08/12/21. There are small groundglass opacities in left upper lobe. No pleural effusion. The heart size is normal. T here are coronary artery calcifications. There are calcifications of aortic valve. No pericardial eff usion. Calcifications in the spleen are consistent with old granulomatous disease. There is a [address] in right kidney. There is moderate thoracic spondylosis. IMPRESSION: 1. Worsened 14 mm nodule in left lung upper lobe suspicious for primary bronchogenic carcinoma. CT-gu ided biopsy is recommended. Reviewed, dictated and finalized at location A. SSIONS MANAGER IMPRESSION: 1. Worsened 14 mm nodule in left lung upper lobe suspicious for primary broncho genic carcinoma. CT-guided biopsy is recommended.
== END 2021-11-13 10:14 | disposition home or self-care (01) ==
LOC: ANHIMG 10:18
PROVIDERS: PCP Internal Medicine; Visit Provider Nurse Practitioner Family
DX: R91.1 Solitary pulmonary nodule (principal)
CPT/HCPCS: 71250

== ENCOUNTER 2022-01-17 13:36 | Outpatient (CLI) | payer MEDICARE, MEDICAID, SELFPAY ==
--- NOTE | ~2022-01-17 | US_ITS ---
US retroperitoneal comp 01/17/2022 13:56 Procedure: Realtime transabdominal ultrasound of the kidneys and bladder. Indication: Renal colic. Comparison: No prior studies for comparison. Findings: Renal echotexture is normal bilaterally without hydronephrosis, contour deforming mass or r enal calculus. The right kidney measures 13.3 cm and left kidney measures 11.7 cm. Bladder within no rmal limits. Impression: 1: Unremarkable renal ultrasound. No stones, masses or hydronephrosis. Reviewed, dictated and finalized at location A. Impression: 1: Unremarkable renal ultrasound. No stones, masses or hydronephrosis.
== END 2022-01-17 13:37 | disposition home or self-care (01) ==
LOC: ANHIMG 13:40
PROVIDERS: PCP Internal Medicine; Visit Provider Nurse Practitioner
DX: N23 Unspecified renal colic (principal)
CPT/HCPCS: 76770

== ENCOUNTER 2022-02-09 11:09 | Outpatient (CLI) | payer MEDICARE, MEDICAID, SELFPAY ==
[2022-02-09 11:50] LABS: Anion Gap 7 mmol/L (8-16); Blood Urea Nitrogen 23 mg/dL (7-17); Calcium 9.7 mg/dL (8.4-10.2); Carbon Dioxide 32 mmol/L (22-30); Chloride 103 mmol/L (98-107); Estimated Glomerular Filt Rate > 60; Glucose 91 mg/dL (65-110); Potassium 3.8 mmol/L (3.4-5.0); Sodium 142 mmol/L (137-145)
== END 2022-02-09 11:10 | disposition home or self-care (01) ==
LOC: ANHLAB 11:19
PROVIDERS: PCP Internal Medicine
DX: I49.3 Ventricular premature depolarization (principal)
CPT/HCPCS: 36415; 80048

== ENCOUNTER → 2022-04-04 15:36 | Outpatient (CLI) | payer MEDICARE, MEDICAID, SELFPAY ==
--- NOTE | ~2022-04-04 | XR_ITS ---
XR_[id number]_CR DATE: 04/04/2022 15:53 INDICATION: Neck pain TECHNIQUE: AP, open-mouth, lateral views COMPARISON: None FINDINGS: There is mild levoscoliosis of cervical and upper thoracic spine. C1 and C2 are normally aligned and the odontoid process is intact. No fracture or dislocation or lock ed facet or prevertebral soft tissue swelling. There is approximately 1.3 mm retrolisthesis at C3-4. There is approximately 1 mm anterolisthesis at C4-5. Cervical interspaces are relatively preserved. There is minimal anterior spurring at C5-6. IMPRESSION: 1.3 mm retrolisthesis at C3-4 1 mm anterolisthesis at C4-5 Minimal anterior spurring at C5-6 Reviewed, dictated and finalized at Location A. Reviewed, dictated and finalized at location A.
== END ==
PROVIDERS: PCP Nurse Practitioner; Visit Provider Nurse Practitioner Family
DX: M47.812 Spondylosis without myelopathy or radiculopathy, cervical region (principal)
CPT/HCPCS: 72040

== ENCOUNTER 2022-04-09 09:00 | Outpatient (CLI) | payer MEDICARE, MEDICAID, SELFPAY ==
--- NOTE | ~2022-04-09 | XR_ITS ---
EXAMINATION: XR barium swallow modified DATE: 04/09/2022 09:55 INDICATION: Dysphagia. TECHNIQUE: The patient was given barium-containing material of multiple consistencies to swallow by erwin connell speech pathologist while I performed fluoroscopy. Dose-area product was 2.369 Gy-cm2. 2.3 minutes fluoroscopy time FINDINGS: Oral Stage: Within normal limits Pharyngeal Phase: Trace//laryngeal penetration with thin liquids Cervical/Esophageal Stage: Within normal limits IMPRESSION: Modified esophagram findings as above. Please refer to the speech therapy report for spec w. d. partlow developmental centerc recommendations. Reviewed, dictated and finalized at Location A. Reviewed, dictated and finalized at location A. IMPRESSION: Modified esophagram findings as above. Please refer to the speech t herapy report for specific recommendations.
[2022-04-09 10:21] LABS: Basophils Absolute Auto 0.1 K/mm3 (0.0-0.1); Basophils Percent Auto 0.6 % (0.2-1.2); Eosinophils Absolute Auto 0.2 K/mm3 (0-0.3); Hematocrit 40.6 % (37.0-47.0); Immature Granulocyte Absolute 0.04 K/mm3 (0.00-0.031); Immature Granulocyte Percent A 0.4 % (0-0.5); Lymphocytes Absolute Auto 1.75 K/mm3 (0.9-3.2); Lymphocytes Percent Auto 16.3 % (18.3-44.2); Mean Corpuscular Hemoglobin 29.6 pg (26-34); Mean Corpuscular Volume 92.5 fl (80-100); Mean Platelet Volume 9.4 fl (7.4-10.4); Monocytes Absolute Auto 1.1 K/mm3 (0.1-0.6); Monocytes Percent Auto 10.5 % (2.6-8.5); Neutrophils Absolute Auto 7.5 K/mm3 (1.3-6.7); Neutrophils Percent Auto 70.2 % (45.5-73.1); Platelet Count Result 402 k/mm3 (150-375); Red Blood Count 4.39 M/mm3 (4.2-5.4); Red Cell Distribution Width 13.5 % (11.5-14.5); White Blood Count 10.7 K/mm3 (4.5-10.0)
[2022-04-09 10:33] LABS: Alanine Aminotransferase 20 U/L (6-35); Albumin Level 4.1 g/dL (3.5-5.1); Alkaline Phosphatase 73 U/L (38-126); Anion Gap 3 mmol/L (8-16); Aspartate Amino Transferase 23 U/L (14-36); Bilirubin,Total 0.4 mg/dL (0.2-1.3); Blood Urea Nitrogen 20 mg/dL (7-17); Calcium 8.9 mg/dL (8.4-10.2); Carbon Dioxide 36 mmol/L (22-30); Chloride 102 mmol/L (98-107); Cholesterol 170 mg/dL (0-200); Estimated Glomerular Filt Rate > 60; Glucose 120 mg/dL (65-110); HDL Direct 47 mg/dL; Potassium 4.4 mmol/L (3.4-5.0); Sodium 141 mmol/L (137-145); Triglycerides 87 mg/dL (<150)
[2022-04-09 11:02] LABS: LDL Cholesterol Direct 84 mg/dL
[2022-04-09 11:26] LABS: Vitamin D 25 Hydroxy 39.2 ng/mL
--- NOTE | 2022-04-09 11:51 | STOPEVAL ---
Thank you for referring [place] Ambriz to [facility].? I agree with and certify that the following plan of care is medically necessary. Referring Physician Date Attending Provider: Gina Alvarado NP Therapy Assessment Status Assessment Status Assessment Status Evaluation Outpatient Past Medical History Past Medical History Source of Past Medical History Patient Neurological History Hx Neurological Disorders No Significant History Cardiovascular History Hx Hypercholesterolemia Yes Hx Hypertension Yes Hx Irregular Heartbeat Yes Hx Other Cardiac Disorders Yes: ABLATION 15 YEARS AGO FOR VENTRICULAR TACHYCARDIA Respiratory History Hx Chronic Obstructive Pulmonary Disease Yes (COPD) Hx Pulmonary Embolism Yes: 1972 Hx Sleep Apnea Yes: DOESN'T WEAR CPAP Hx Tuberculosis Yes: A CHILD Gastrointestinal History Hx Appendectomy Yes Hx Cholecystectomy Yes Hx Gastroesophageal Reflux Disease Yes Hx Polyps Yes Genitourinary History Hx Kidney Stones Yes Hx Urinary Tract Infection Yes Musculoskeletal History Hx Arthritis Yes Hx Back Pain Yes Hx Other Musculoskeletal Disorders Yes: SPINAL STENOSIS Hematological History Hx Hematological Disorders No Significant History Endocrine History Hx Other Endocrine Disorders Yes: HYPOTHYROIDISM CHILD W / SUPPLEMENT, NONE NOW HEENT History Hx Cataracts Yes: LT EYE FORMING Hx Glaucoma Yes: LEFT EYE Hx Tonsillectomy Yes: CHILD Integumentary History Hx Skin Disorders No Significant History Reproductive History Hx Other Reproductive Disorders Yes: BREAST- BX-BENIGN Psychosocial History Hx Anxiety Yes Hx Depression Yes Pain History Has Past Pain Affected Your Daily Life Yes: BACK-SPINAL STENOSIS Anesthesia History Hx Post-Op Nausea/Vomiting Yes: N/V Other History Hx Other Surgeries Yes: LEFT BREAST BENIGN CYST REMOVAL Pain Assessment Timing of Pain Assessment Timing of Pain Assessment Assessment Self Report Self Report Pain Level 0 Pain Score Pain Score 0: Self Report Modified Barium Swallow Evaluation Consistency Solid Consistency 5 mL Method of Presentation Spoon Oral Preparatory Symptoms Within Functional Limits Oral Phase Symptoms Within Functional Limits Pharyngeal Phase Symptoms Within Functional Limits Severity of Vallecular Residue None - 0% No Residue Severity of Pyriform Sinus Residue None - 0% No Residue 8 Point Laryngeal Penetration-Aspiration Material Does Not Enter Airway
[2022-04-09 15:51] LABS: Hemoglobin A1C 5.8 % (<5.7)
== END 2022-04-09 09:01 | disposition home or self-care (01) ==
PROVIDERS: PCP Nurse Practitioner; Visit Provider Nurse Practitioner
DX: E78.5 Hyperlipidemia, unspecified (principal); E07.9 Disorder of thyroid, unspecified; E55.9 Vitamin D deficiency, unspecified; Z13.29 Encounter for screening for other suspected endocrine disorder; R13.10 Dysphagia, unspecified; R73.9 Hyperglycemia, unspecified
CPT/HCPCS: 36415; 80053; 80061; 82306; 83036; 84443; 85025; 92611

== ENCOUNTER → 2022-05-08 00:25 | Outpatient (CLI) | payer MEDICARE, MEDICAID, SELFPAY ==
[2022-05-08 11:35] LABS: SARS-CoV-2 RNA PCR Negative
== END ==
PROVIDERS: PCP Nurse Practitioner; Visit Provider Nurse Practitioner
DX: Z01.812 Encounter for preprocedural laboratory examination (principal); R05.9 Cough, unspecified
CPT/HCPCS: C9803; U0003; U0005

== ENCOUNTER 2022-05-23 08:15 | Outpatient (CLI) | payer MEDICARE, MEDICAID, SELFPAY ==
--- NOTE | ~2022-05-23 | XR_ITS ---
EXAMINATION: XR barium swallow DATE: 05/23/2022 10:14 CDT INDICATION: Dysphagia TECHNIQUE: Thick barium contrast with gas effervescent crystals were administered orally. Fluoroscop ic images of the esophagus were obtained in various projections. The hypopharynx was also examined. T hereafter, overhead images of the thoracic esophagrus were performed. Fluroscopy time 0.5 minutesDap 5.5. 38 images. FINDINGS: The esophagus is normal in caliber, without mucosal lesions or strictures. There are tertia ry contractions in the mid and distal esophagus, consistent with presbyesophagus.. There is no hiatal hernia. No discreet episode of gastroesophageal reflux is seen during the course of this study. IMPRESSION: 1. Unremarkable barium esophagram. Reviewed, dictated and finalized at location A.
[2022-05-23 09:56] LABS: Appearance Urine Clear (Clear); Bilirubin Urine Negative (Negative); Blood Urine Negative (Negative); Color Urine Yellow (Yellow); Glucose Urine UA Negative (Negative); Ketones Urine Negative (Negative); Leukocyte Esterase Ur 1+ LEU/UL (Negative); Nitrate Urine Negative (Negative); Protein Urine Negative (Negative); Urobilinogen Urine 0.2 mg/dL (<2.0)
[2022-05-23 10:03] LABS: Bacteria Urine Trace /hpf; Mucus Urine Moderate /lpf; Squamous Epithelial Cell Urine Many /hpf (Few)
[2022-05-23 10:10] LABS: Add Urine Microscopic? YES
== END 2022-05-23 08:16 | disposition home or self-care (01) ==
PROVIDERS: PCP Internal Medicine; Referring Provider Clinical Nurse Specialist; Visit Provider Nurse Practitioner Family
DX: R30.0 Dysuria (principal)
CPT/HCPCS: 74220; 81001; 87077; 87086; 87186

== ENCOUNTER 2022-09-05 07:15 | Outpatient (CLI) | payer MEDICARE, MEDICAID, SELFPAY ==
[2022-09-05 07:45] LABS: Basophils Percent Auto 0.7 % (0.2-1.2); Eosinophils Absolute Auto 0.2 K/mm3 (0-0.3); Eosinophils Percent Auto 3.1 % (0-4.4); Hematocrit 35.7 % (37.0-47.0); Hemoglobin 11.4 g/dL (12.0-15.0); Immature Granulocyte Absolute 0.08 K/mm3 (0.00-0.031); Immature Granulocyte Percent A 1.3 % (0-0.5); Lymphocytes Absolute Auto 1.14 K/mm3 (0.9-3.2); Lymphocytes Percent Auto 18.7 % (18.3-44.2); Mean Corpuscular HGB Conc 31.9 g/dl (32-36); Mean Corpuscular Hemoglobin 30.4 pg (26-34); Mean Corpuscular Volume 95.2 fl (80-100); Mean Platelet Volume 8.8 fl (7.4-10.4); Monocytes Absolute Auto 0.8 K/mm3 (0.1-0.6); Monocytes Percent Auto 13.6 % (2.6-8.5); Neutrophils Absolute Auto 3.8 K/mm3 (1.3-6.7); Neutrophils Percent Auto 62.6 % (45.5-73.1); Platelet Count Result 341 k/mm3 (150-375); Red Blood Count 3.75 M/mm3 (4.2-5.4); White Blood Count 6.1 K/mm3 (4.5-10.0)
[2022-09-05 07:56] LABS: Alanine Aminotransferase 22 U/L (6-35); Alkaline Phosphatase 80 U/L (38-126); Anion Gap 13 mmol/L (8-16); Aspartate Amino Transferase 26 U/L (14-36); Bilirubin,Total 0.5 mg/dL (0.2-1.3); Blood Urea Nitrogen 19 mg/dL (7-17); Calcium 8.8 mg/dL (8.4-10.2); Carbon Dioxide 28 mmol/L (22-30); Chloride 101 mmol/L (98-107); Cholesterol 177 mg/dL (0-200); Estimated Glomerular Filt Rate > 60; Glucose 95 mg/dL (65-110); HDL Direct 53 mg/dL; Potassium 3.3 mmol/L (3.4-5.0); Sodium 142 mmol/L (137-145); Triglycerides 87 mg/dL (<150)
[2022-09-05 07:58] LABS: Hemoglobin A1C 5.4 % (<5.7)
[2022-09-05 08:00] VITALS: PULSE 78; O2SAT 94
[2022-09-05 08:05] VITALS: PULSE 86; O2SAT 87
[2022-09-05 08:08] LABS: LDL Cholesterol Direct 78 mg/dL
[2022-09-05 08:10] VITALS: PULSE 79; O2SAT 88
[2022-09-05 08:15] VITALS: PULSE 89; O2SAT 91
[2022-09-05 08:30] VITALS: PULSE 79; O2SAT 94
--- NOTE | 2022-09-05 08:48 | HOMEO2EVAL ---
Evaluation was performed at [facility] Home Oxygen Evaluation RC: Home Oxygen (O2) Evaluation Start: 09/05/22 08:45 Freq: Status: Active Protocol: RPE Activity Type Activity Date Activity User E-sign Co-sign Detail Recorded Client Recorded Date Recorded By Document 09/05/22 08:00 DJO [email or web address] 09/05/22 08:47 DJO Document 09/05/22 08:05 DJO [email or web address] 09/05/22 08:47 DJO Document 09/05/22 08:10 DJO [email or web address] 09/05/22 08:47 DJO Document 09/05/22 08:15 DJO [email or web address] 09/05/22 08:47 DJO Document 09/05/22 08:30 [email or web address] [email or web address] 09/05/22 08:47 DJO 09/05/22 09/05/22 09/05/22 08:00 08:05 08:10 Home O2 Evaluation [Oxygen] -Test Phase Resting Exercise Exercise -Oxygen Delivery Room Air Room Air Nasal Cannula -Oxygen Flow Rate (L/min) 1 [Pulse Oximetry] -Pulse Oximetry (90-100 %) 94 87 L 88 L [Pulse Rate] -Pulse Rate (60-100 beats/min) 78 86 79 [Evaluation] -Activity Tolerance [Exercise] -Ambulation Distance (feet) -Ambulation Distance (meters) [Charges] -Treatment Charges O2 Evaluation - Outpatient 09/05/22 09/05/22 08:15 08:30 Home O2 Evaluation [Oxygen] -Test Phase Exercise Resting -Oxygen Delivery Nasal Cannula Room Air -Oxygen Flow Rate (L/min) 2 [Pulse Oximetry] -Pulse Oximetry (90-100 %) 91 94 [Pulse Rate] -Pulse Rate (60-100 beats/min) 89 79 [Evaluation] -Activity Tolerance Good [Exercise] -Ambulation Distance (feet) 750 -Ambulation Distance (meters) 228.58 [Charges] -Treatment Charges
[2022-09-05 09:06] LABS: Vitamin D 25 Hydroxy 32.7 ng/mL
== END 2022-09-05 07:16 | disposition home or self-care (01) ==
PROVIDERS: Nurse Practitioner; PCP Internal Medicine; Visit Provider Nurse Practitioner Family
DX: E55.9 Vitamin D deficiency, unspecified (principal); E11.9 Type 2 diabetes mellitus without complications
CPT/HCPCS: 36415; 80053; 80061; 82306; 83036; 85025; 94618

== ENCOUNTER 2022-10-11 10:15 | Outpatient (CLI) | payer MEDICARE, MEDICAID, SELFPAY ==
[2022-10-11 20:50] LABS: Basophils Absolute Auto 0.1 K/mm3 (0.0-0.1); Basophils Percent Auto 0.6 % (0.2-1.2); Eosinophils Absolute Auto 0.4 K/mm3 (0-0.3); Eosinophils Percent Auto 3.8 % (0-4.4); Hematocrit 39.2 % (37.0-47.0); Hemoglobin 12.4 g/dL (12.0-15.0); Immature Granulocyte Absolute 0.09 K/mm3 (0.00-0.031); Immature Granulocyte Percent A 0.8 % (0-0.5); Lymphocytes Absolute Auto 1.29 K/mm3 (0.9-3.2); Lymphocytes Percent Auto 11.8 % (18.3-44.2); Mean Corpuscular HGB Conc 31.6 g/dl (32-36); Mean Corpuscular Hemoglobin 29.4 pg (26-34); Mean Corpuscular Volume 92.9 fl (80-100); Mean Platelet Volume 9.3 fl (7.4-10.4); Monocytes Absolute Auto 1.3 K/mm3 (0.1-0.6); Monocytes Percent Auto 11.4 % (2.6-8.5); Neutrophils Absolute Auto 7.8 K/mm3 (1.3-6.7); Neutrophils Percent Auto 71.6 % (45.5-73.1); Platelet Count Result 431 k/mm3 (150-375); Red Blood Count 4.22 M/mm3 (4.2-5.4); Red Cell Distribution Width 12.9 % (11.5-14.5); White Blood Count 10.9 K/mm3 (4.5-10.0)
[2022-10-11 21:01] LABS: Iron 29 ug/dL (37-170)
[2022-10-11 21:25] LABS: Percent Iron Saturation 10 % (20-50)
[2022-10-11 21:31] LABS: Alanine Aminotransferase 15 U/L (6-35); Alkaline Phosphatase 95 U/L (38-126); Anion Gap 8 mmol/L (8-16); Aspartate Amino Transferase 21 U/L (14-36); Bilirubin,Total 0.5 mg/dL (0.2-1.3); Blood Urea Nitrogen 20 mg/dL (7-17); Calcium 9.2 mg/dL (8.4-10.2); Carbon Dioxide 29 mmol/L (22-30); Chloride 102 mmol/L (98-107); Estimated Glomerular Filt Rate > 60; Glucose 95 mg/dL (65-110); Potassium 4.4 mmol/L (3.4-5.0); Sodium 139 mmol/L (137-145)
== END 2022-10-11 10:16 | disposition home or self-care (01) ==
LOC: ANHGOSHLAB 10:17
PROVIDERS: PCP Internal Medicine; Visit Provider Clinical Nurse Specialist
DX: D64.9 Anemia, unspecified (principal)
CPT/HCPCS: 36415; 80053; 82728; 83540; 83550; 85025

== ENCOUNTER 2022-12-19 11:01 | Outpatient (RCR) | payer MEDICARE, MEDICAID, SELFPAY | END 2022-12-19 11:03 | disposition home or self-care (01) | LOC: ANHGOSHST 11:01 | PROVIDERS: PCP Internal Medicine; Visit Provider Nurse Practitioner | DX: R13.10 Dysphagia, unspecified (principal) | CPT/HCPCS: 99199 ==

== ENCOUNTER 2023-01-07 14:28 | Outpatient (CLI) | payer MEDICARE, MEDICAID, SELFPAY ==
--- NOTE | ~2023-01-07 | US_ITS ---
EXAMINATION: US soft tissue head and neck DATE: 01/07/2023 15:21 INDICATION: Right neck focal swelling. Lung cancer. TECHNIQUE: Multiple grayscale and Doppler ultrasound images of the neck were obtained. COMPARISON: Chest CT 11/13/21 FINDINGS: There are mildly enlarged right internal jugular chain lymph nodes. The largest node measur es 3.4 x 1.2 x 1.6 cm. There is thrombus in right internal jugular vein. IMPRESSION: 1. Mild right internal jugular chain lymphadenopathy, which may be reactive or metastatic disease. 2. Deep vein thrombosis involving right internal jugular vein. Reviewed, dictated and finalized at location A.
== END 2023-01-07 14:29 | disposition home or self-care (01) ==
PROVIDERS: PCP Internal Medicine; Visit Provider Nurse Practitioner
DX: R59.0 Localized enlarged lymph nodes (principal); I82.C11 Acute embolism and thrombosis of right internal jugular vein
CPT/HCPCS: 76536

== ENCOUNTER → 2023-06-07 08:31 | Outpatient (CLI) | payer MEDICARE, MEDICAID, SELFPAY ==
--- NOTE | ~2023-06-07 | XR_ITS ---
EXAMINATION: XR chest 2V DATE: 06/07/2023 08:50 INDICATION: Shortness of breath TECHNIQUE: frontal and lateral views of the chest were obtained. COMPARISON: Chest CT dated 11/13/2021 FINDINGS: Right internal jugular central venous port catheter with distal tip at the caudal superior vena cava. Left suprahilar spiculated masslike opacity with peripheral extension of linear discoid atelectasis. Bibasilar pleural-parenchymal scarring with chronic blunting at the costophrenic angles and posterio r sulci. No pulmonary edema, pleural effusion or pneumothorax. Calcified right hilar lymph nodes cons istent with old granulomatous disease. Heart size is normal. Mild thoracic spondylosis. IMPRESSION: 1. Masslike opacity in the left suprahilar region which concerning for malignancy with differential i ncluding pneumonia or atelectasis/scarring. Recommend further evaluation with contrast-enhanced chest CT. Reviewed, dictated and finalized at location B. IMPRESSION: 1. Masslike opacity in the left suprahilar region which concerning for malignan cy with differential including pneumonia or atelectasis/scarring. Recommend fur ther evaluation with contrast-enhanced chest CT.
== END ==
PROVIDERS: PCP Nurse Practitioner; Visit Provider Nurse Practitioner
DX: C34.90 Malignant neoplasm of unspecified part of unspecified bronchus or lung (principal); R06.02 Shortness of breath; R91.8 Other nonspecific abnormal finding of lung field
CPT/HCPCS: 71046

== ENCOUNTER → 2023-07-25 08:22 | Outpatient (CLI) | payer MEDICARE, MEDICAID, SELFPAY ==
--- NOTE | ~2023-07-25 | MR_ITS ---
MRI of the lumbar spine Clinical History: Radiculopathy Technique: Axial T2-weighted images, and sagittal T1-weighted, T2-weighted, and and T2 fat-sat images were acquired. COMPARISON: 04/28/2019 Findings: No acute fracture identified. There is 5 mm anterolisthesis of L4 over L5. No suspicious savita ne marrow signal abnormality seen. At L1-L2, there is no disc bulge or herniation. There is mild to moderate facet arthropathy. There is no central canal stenosis or neural foraminal narrowing. At L2-L3, there is no significant disc bulge or herniation. There is mild facet arthropathy. No centr al canal stenosis or neural foraminal narrowing. At L3-L4, there is minimal disc bulge and moderate facet arthropathy. No central canal stenosis or de finite neural foraminal narrowing. At L4-L5, there is disc bulge/uncovering with moderate severe facet arthropathy. No central canal sanya nosis. There is mild bilateral neural foraminal narrowing, left worse than right. At L5-S1, there is no significant disc bulge or herniation. There is moderate bilateral facet arthrop athy. No central canal stenosis or neural foraminal narrowing. Paravertebral soft tissues are unremarkable. Impression: 5 mm anterolisthesis of L4 over L5. Mild degenerative spondylosis overall, as detailed above, worst at L4-L5. Reviewed, dictated and finalized at [facility]. Impression: 5 mm anterolisthesis of L4 over L5. Mild degenerative spondylosis overall, as detailed above, worst at L4-L5.
== END ==
PROVIDERS: PCP Internal Medicine; Visit Provider Nurse Practitioner Family
DX: M54.16 Radiculopathy, lumbar region (principal); M43.06 Spondylolysis, lumbar region
CPT/HCPCS: 72148

== ENCOUNTER 2024-06-06 16:29 | Inpatient (IN) | payer MEDICARE, MEDICAID, SELFPAY ==
[2024-06-06] VITALS (7 sets, daily range): BP systolic 64–128; BP diastolic 41–63; PULSE 70–97; RESP 19–28; TEMP 36.8; O2SAT 98–100
--- NOTE | ~2024-06-06 | XR_ITS ---
EXAMINATION: XR abdomen obstructive series DATE: 06/11/2024 19:18 INDICATION: Constipation, nausea and vomiting TECHNIQUE: Frontal supine and upright views of the abdomen were obtained. COMPARISON: CT dated 06/10/2024 FINDINGS: Small amount of gas scattered throughout the colon. No dilated loops of gas-filled bowel to suggest o bstruction. No free intraperitoneal gas. Mild streaky bibasilar atelectasis. Partially visualized r ight internal jugular central venous port catheter with distal tip at the superior cavoatrial junctio n. Biopsy marking clips at the right breast. IMPRESSION: 1. No free intraperitoneal gas or dilated gas-filled loops of bowel to suggest obstruction. Reviewed, dictated and finalized at location A.
--- NOTE | ~2024-06-06 | CT_ITS ---
EXAMINATION: CT chest abdomen pelvis wo con DATE: 06/10/2024 13:55 INDICATION: Lung cancer. Leukocytosis. TECHNIQUE: Computed tomography (CT) of the chest, abdomen, and pelvis was performed without intraveno us contrast. Automated exposure control and iterative reconstruction technique were employed. The dos e-length product was 1215.39 mGy-cm. COMPARISON: Chest CT 11/13/2021 FINDINGS: CHEST CT: There is mild emphysema. There is radiation fibrosis in perihilar right upper lobe. Calcified right l carine nodules and calcified right hilar and mediastinal lymph nodes are consistent with old granulomato us disease. There is collapse of left lung upper lobe. There is radiation fibrosis involving superior segment left lower lobe. There is peripheral septal thickening in the inferior lungs, likely mild pu lmonary edema. There is a small loculated left pleural effusion. There is a right internal jugular po rt with tip at superior cavoatrial junction. The heart size is normal. There are coronary artery calc ifications. There is a small pericardial effusion, likely secondary to radiation therapy. There is a small sliding hiatal hernia. There is thoracic kyphosis and moderate spondylosis. ABDOMEN/PELVIS CT: Calcifications in the liver and spleen are consistent with old granulomatous disease. The gallbladder is absent. The spleen, pancreas, and left kidney are normal. There is a 12 mm cyst in right kidney. There is no urolithiasis. There is calcified atherosclerosis of the aorta and many of the other arter ies. There are bilateral hernias containing fat. There is diverticulosis of the colon without evidenc e of diverticulitis. There are no dilated loops of bowel. The pancreas appendix is not visualized. Th ere are no pathologically enlarged lymph nodes. There is no free intraperitoneal fluid. There is mild lumbar spondylosis. IMPRESSION: 1. Complete collapse of left lung upper lobe with small loculated left pleural effusion. 2. Mild pulmonary edema. 3. Radiation fibrosis involving the perihilar regions. 4. No evidence of metastatic disease. Reviewed, dictated and finalized at location A.
--- NOTE | ~2024-06-06 | US_ITS ---
EXAMINATION: US abdomen limited DATE: 06/22/2024 15:25 INDICATION: Abnormal liver function tests. TECHNIQUE: Multiple grayscale and Doppler ultrasound images of the abdomen were obtained. COMPARISON: Chest CT 06/10/2024, CT abdomen and pelvis 06/15/2019 FINDINGS: The visualized portions of the head, body, and tail of the pancreas are normal. There are m ultiple hypoechoic liver masses measuring up to 2.8 cm, new from 06/15/19. The gallbladder is absent. The common duct is normal and measures 8 mm. IMPRESSION: 1. Liver masses, consistent with metastatic disease. Reviewed, dictated and finalized at location A.
--- NOTE | ~2024-06-06 | XR_ITS ---
Portable chest x-ray Comparison: 06/08/2024 Clinical History: History of lung cancer Findings: Right-sided Mediport unchanged. Stable left upper lobe collapse. Stable blunting of the co stophrenic angles bilaterally. Cardiomediastinal silhouette is stable. Bones and soft tissues are un remarkable. Impression: No interval change. Stable left upper lobe collapse. Probable mild bibasilar pulmonary edema and minimal pleural effusions. Stable Mediport. Reviewed, dictated and finalized at location . Impression: No interval change. Stable left upper lobe collapse. Probable mild bibasilar pulmonary edema and minimal pleural effusions. Stable Mediport.
--- NOTE | ~2024-06-06 | XR_ITS ---
EXAMINATION: XR chest 1V portable DATE: 06/08/2024 08:32 INDICATION: Pneumonia. TECHNIQUE: A single frontal view of the chest was obtained. COMPARISON: Chest single view 06/07/2024 FINDINGS: There are are airspace opacities with volume loss at left lung apex. There is mild atelecta sis in the lower lung zones. There are small pleural effusions. No pneumothorax. The heart size is no rmal. There is a right internal jugular port with tip at superior cavoatrial junction. IMPRESSION: 1. Stable airspace opacities with volume loss of left lung apex, likely radiation pneumonitis. 2. Small pleural effusions. 3. Mild atelectasis at the lung bases. Reviewed, dictated and finalized at location A. IMPRESSION: 1. Stable airspace opacities with volume loss of left lung apex, likely radiati on pneumonitis. 2. Small pleural effusions. 3. Mild atelectasis at the lung bases.
--- NOTE | ~2024-06-06 | US_ITS ---
BILATERAL LOWER EXTREMITY VENOUS ULTRASOUND Ordering provider: Deng Rai MD History: . edema . Comparison: None. FINDINGS: RIGHT LOWER EXTREMITY VEINS: --COMMON FEMORAL: Patent and free of thrombus. Normal compressibility, phasic flow and augmentation. --PROXIMAL SUPERFICIAL FEMORAL: Patent and free of thrombus. Normal compressibility, phasic flow and augmentation. --DISTAL SUPERFICIAL FEMORAL: Patent and free of thrombus. Normal compressibility, phasic flow and au gmentation. --POPLITEAL: Patent and free of thrombus. Normal compressibility, phasic flow and augmentation. --POSTERIOR TIBIAL: Patent and free of thrombus. Normal compressibility, phasic flow and augmentation . LEFT LOWER EXTREMITY VEINS: --COMMON FEMORAL: Patent and free of thrombus. Normal compressibility, phasic flow and augmentation. --PROXIMAL SUPERFICIAL FEMORAL: Patent and free of thrombus. Normal compressibility, phasic flow and augmentation. --DISTAL SUPERFICIAL FEMORAL: Patent and free of thrombus. Normal compressibility, phasic flow and au gmentation. --POPLITEAL: Patent and free of thrombus. Normal compressibility, phasic flow and augmentation. --POSTERIOR TIBIAL: Patent and free of thrombus. Normal compressibility, phasic flow and augmentation . Left peroneal vein not visualized. IMPRESSION: Negative bilateral lower extremity venous US. No deep vein thrombosis. Reviewed, dictated and finalized at location A.
--- NOTE | ~2024-06-06 | CT_ITS ---
EXAMINATION:CT diagnostic chest wo con DATE: 06/22/2024 15:17 INDICATION: Left lung infiltrate. TECHNIQUE: Computed tomography (CT) of the chest was performed without intravenous contrast. Automate d exposure control and iterative reconstruction technique were employed. The dose-length product (DLP ) was 348.65 mGy-cm. COMPARISON: Chest CT 06/10/2024, 11/13/21, CT abdomen and pelvis 06/15/2019 FINDINGS: There is mild emphysema. There is complete collapse of left lung upper lobe. There are smal l bilateral pleural effusions, loculated on the left. There is septal thickening in the inferior lung s, consistent mild pulmonary edema. Calcified pulmonary nodules and calcified hilar lymph nodes are c onsistent with old granulomatous disease. There are airspace opacities with volume loss and it integration architect ural distortion in perihilar right upper lobe and superior segment left lower lobe, consistent with r adiation fibrosis. There are two 6 mm nodules in right lower lobe. There is a 4 mm nodule in left low er lobe. There is a right internal jugular port with tip at superior cavoatrial junction. The heart s ize is normal. There are coronary artery calcifications. No pericardial effusion. There are multiple ill-defined low-attenuation masses in the liver measuring up to 4.1 cm. There is moderate thoracic sp ondylosis. IMPRESSION: 1. Complete collapse of left lung upper lobe. 2. Pulmonary nodules measuring up to 6 mm, new from 11/13/2021, suspicious for metastatic disease. 3. Liver masses, consistent with metastatic disease. 4. Mild pulmonary edema. 5. Small pleural effusions, loculated on the left. 6. Radiation fibrosis involving right upper lobe and superior segment left lower lobe. Reviewed, dictated and finalized at location A. IMPRESSION: 1. Complete collapse of left lung upper lobe. 2. Pulmonary nodules measuring up to 6 mm, new from 11/13/2021, suspicious for m etastatic disease. 3. Liver masses, consistent with metastatic disease. 4. Mild pulmonary edema. 5. Small pleural effusions, loculated on the left. 6. Radiation fibrosis involving right upper lobe and superior segment left lowe r lobe.
--- NOTE | ~2024-06-06 | XR_ITS ---
EXAMINATION: XR chest 1V portable DATE: 06/07/2024 09:21 INDICATION: Pneumonia. TECHNIQUE: A single frontal view of the chest was obtained. COMPARISON: Chest 2 views 06/07/2023, chest CT 11/13/2021 FINDINGS: There are airspace opacities with volume loss at left lung apex. There is mild atelectasis at right lung base. No pleural effusion or pneumothorax. The heart size is normal. There is a right i nternal jugular port with tip at superior cavoatrial junction. IMPRESSION: 1. Worsened airspace opacities with volume loss at left lung apex, likely radiation pneumonitis. Reviewed, dictated and finalized at location E. IMPRESSION: 1. Worsened airspace opacities with volume loss at left lung apex, likely radia tion pneumonitis.
[2024-06-06] MEDS: METOCLOPRAMIDE HCL INJ 10 MG/2 ML VIAL IV PUSH (21:58)
[2024-06-06 22:05] LABS: Basophils Percent Auto 0.2 % (0.2-1.2); Hemoglobin 8.6 g/dL (12.0-15.0); Immature Granulocyte Absolute 0.68 K/mm3 (0.00-0.031); Immature Granulocyte Percent A 3.5 % (0-0.5); Lymphocytes Absolute Auto 0.72 K/mm3 (0.9-3.2); Lymphocytes Percent Auto 3.7 % (18.3-44.2); Mean Corpuscular HGB Conc 31.9 g/dl (32-36); Mean Corpuscular Hemoglobin 25.8 pg (26-34); Mean Corpuscular Volume 81.1 fl (80-100); Mean Platelet Volume 8.8 fl (7.4-10.4); Monocytes Absolute Auto 1.4 K/mm3 (0.1-0.6); Monocytes Percent Auto 7.1 % (2.6-8.5); Neutrophils Absolute Auto 16.5 K/mm3 (1.3-6.7); Neutrophils Percent Auto 85.5 % (45.5-73.1); Platelet Count Result 416 k/mm3 (150-375); Red Blood Count 3.33 M/mm3 (4.2-5.4); White Blood Count 19.3 K/mm3 (4.5-10.0)
[2024-06-06 22:15] LABS: Alanine Aminotransferase 28 U/L (6-35); Albumin Level 2.8 g/dL (3.5-5.1); Alkaline Phosphatase 87 U/L (38-126); Anion Gap 7 mmol/L (4-12); Aspartate Amino Transferase 26 U/L (14-36); Bilirubin,Total 0.5 mg/dL (0.2-1.3); Blood Urea Nitrogen 23 mg/dL (7-17); Calcium 8.1 mg/dL (8.4-10.2); Carbon Dioxide 34 mmol/L (22-30); Chloride 89 mmol/L (98-107); Estimated CRCL calculation 69 ml/min; Estimated Glomerular Filt Rate > 60; Glucose 116 mg/dL (65-110); Lipase 67 U/L (23-300); Potassium 2.9 mmol/L (3.4-5.0); Sodium 130 mmol/L (137-145)
--- NOTE | 2024-06-06 22:31 | ED.NAVMDI ---
HPI - Nausea/Vomiting/Diarrhea General Chief complaint: Nausea/Vomiting/Diarrhea Stated complaint: n/v Time Seen by Provider: 06/06/24 21:10 History of Present Illness HPI Narrative: Patient presents with nausea vomiting, persistently for the last week since she was discharged from the hospital for a possible PE. Has not been able to keep anything down. No abdominal pain. Related Data Home Medications Medication Instructions Recorded Confirmed ascorbate calcium (vitamin C) 500 500 mg PO DAILY 11/26/19 06/07/24 mg tablet cholecalciferol (vitamin D3) 25 1,000 unit PO DAILY 11/26/19 06/07/24 mcg (1,000 unit) capsule thiamine HCl (vitamin B1) 50 mg 50 mg PO DAILY 11/26/19 06/07/24 tablet (Vitamin B-1) diltiazem HCl 240 mg capsule,24 240 mg PO BID 03/21/22 06/07/24 hr,extended release tizanidine 4 mg tablet 4 mg PO Q8H PRN muscle spasticity 05/11/22 06/07/24 apixaban 5 mg tablet (Eliquis) 5 mg PO BID 07/20/22 06/07/24 mecobalamin (vitamin B12) 1,000 1,000 mcg PO DAILY 07/20/22 06/07/24 mcg lozenges letrozole 2.5 mg tablet 2.5 mg PO DAILY 03/04/23 06/07/24 hydrocodone 5 mg-acetaminophen 325 1 tablet PO Q4-6H PRN Pain 03/22/23 06/07/24 mg tablet prochlorperazine maleate 10 mg 10 mg PO .PRN 03/22/23 06/07/24 tablet insulin aspart U-100 100 unit/mL 1 sliding scale dose subcut 04/27/24 06/07/24 subcutaneous solution (Novolog USEASDIRECTD U-100 Insulin aspart) epinephrine 0.3 mg/0.3 mL 0.3 mg IM Q4H PRN Allergic Reaction 05/14/24 06/07/24 injection, auto-injector (EpiPen 2-Fabián) roflumilast 500 mcg tablet 1 mcg PO DAILY 06/07/24 06/07/24 Allergies Allergy/AdvReac Type Severity Reaction Status Date / Time pembrolizumab [From [employer]] Allergy Severe Hives Verified 05/14/24 10:36 neomycin Allergy Intermediate Itching Verified 05/14/24 10:36 [From Neosporin (ict-emb-leadr)] polymyxin B Allergy Intermediate Itching Verified 05/14/24 10:36 [From Neosporin (nig-jou-oauxo)] codeine Allergy Mild Hives Verified 05/14/24 10:36 diclofenac Allergy Mild HIVES Verified 05/14/24 10:36 tuberculin, purified protein Allergy Mild Swelling Verified 05/14/24 10:36 deriva adhesive tape AdvReac Intermediate Blister Verified 05/14/24 10:36 Contrast Media Allergy Mild Hives Uncoded 05/14/24 10:36 Review of Systems Review of Systems: All systems reviewed & are unremarkable except as noted in HPI and below PMFSH Past Medical History Medical History Bronchiolitis Bronchitis Cat bite of ankle Cellulitis Cervical strain Chicken pox Colon polyp COPD (chronic obstructive pulmonary disease) Dysuria Environmental allergies Essential hypertension Folliculitis Heartburn HLD (hyperlipidemia) Hoarseness of voice Hypercholesterolemia Kidney disease Left shoulder pain Leukocytosis Lumbar radiculopathy Lung cancer Non-cardiac chest pain Osteoarthritis Painful thyroid Poison deepa dermatitis Right hip pain Screening for endocrine disorder SOB (shortness of breath) Stage III squamous cell carcinoma of lung Strain of wrist, right Swelling of thigh TB (tuberculosis), treated Thyroid disease UTI (urinary tract infection) UTI (urinary tract infection) Whooping cough treated Surgical History Surgical History H/O prior ablation treatment Ventricular tachycardia ablation History of cholecystectomy History of hysterectomy History of knee surgery History of lung biopsy History of tonsillectomy and adenoidectomy Family History Family History Sibling Family history of lung cancer Hypertension Father Lung cancer COPD (chronic obstructive pulmonary disease) Mother Sepsis Asthma COPD (chronic obstructive pulmonary disease) Hx of blood clots Sibling Asthma COPD (chronic obstructive pulmonary disease) Anemia Son Hypertensio
[2024-06-06] MEDS: KCL 40 MEQ/WATER 100 ML 100 ML 25 ML IVPB (22:54)
[2024-06-07] VITALS (18 sets, daily range): BP systolic 110–160; BP diastolic 42–88; PULSE 81–103; RESP 18–22; TEMP 36–37.3; O2SAT 94–100; BMI 30.2
[2024-06-07] MEDS: FLUCONAZOLE 150 MG TABLET PO (00:16)
[2024-06-07] MEDS: LACTATED RINGERS 1,000 ML 999 ML IV CONT (00:16)
[2024-06-07] MEDS: PROCHLORPERAZINE EDISYLATE 10 MG/2 ML VIAL 5 MG IV PUSH (00:16)
--- NOTE | 2024-06-07 01:29 | PM.IMHP ---
H&P: HPI History of Present Illness Date/Time: 06/07/24 01:29 Chief Complaint: n/v Narrative: This is a 74-year-old female with past medical history significant for squamous cell lung cancer, COPD/emphysema, hypertension, insulin-dependent diabetes mellitus, chronic hypoxic respiratory failure on 2 L by nasal cannula at home, obstructive sleep apnea on CPAP at nighttime however patient does not use her CPAP instead uses her oxygen. Patient recently discharged from [place] where she was admitted for hemoptysis mucus plugging atelectasis status post bronchoscopy. EXAMINATION: XR chest 1V portable DATE: 06/07/2024 09:21 INDICATION: Pneumonia. TECHNIQUE: A single frontal view of the chest was obtained. COMPARISON: Chest 2 views 06/07/2023, chest CT 11/13/2021 FINDINGS: There are airspace opacities with volume loss at left lung apex. There is mild atelectasis at right lung base. No pleural effusion or pneumothorax. The heart size is normal. There is a right internal jugular port with tip at superior cavoatrial junction. IMPRESSION: 1. Worsened airspace opacities with volume loss at left lung apex, likely radiation pneumonitis. Review of Systems Review of Systems: Nausea, vomiting, poor per orally intake PMFSH Past Medical History Medical History Bronchiolitis Bronchitis Cat bite of ankle Cellulitis Cervical strain Chicken pox Colon polyp COPD (chronic obstructive pulmonary disease) Dysuria Environmental allergies Essential hypertension Folliculitis Heartburn HLD (hyperlipidemia) Hoarseness of voice Hypercholesterolemia Kidney disease Left shoulder pain Leukocytosis Lumbar radiculopathy Lung cancer Non-cardiac chest pain Osteoarthritis Painful thyroid Poison deepa dermatitis Right hip pain Screening for endocrine disorder SOB (shortness of breath) Stage III squamous cell carcinoma of lung Strain of wrist, right Swelling of thigh TB (tuberculosis), treated Thyroid disease UTI (urinary tract infection) UTI (urinary tract infection) Whooping cough treated Surgical History Surgical History H/O prior ablation treatment Ventricular tachycardia ablation History of cholecystectomy History of hysterectomy History of knee surgery History of lung biopsy History of tonsillectomy and adenoidectomy Family History Family History Sibling Family history of lung cancer Hypertension Father Lung cancer COPD (chronic obstructive pulmonary disease) Mother Sepsis Asthma COPD (chronic obstructive pulmonary disease) Hx of blood clots Sibling Asthma COPD (chronic obstructive pulmonary disease) Anemia Son Hypertension Diabetes mellitus HLD (hyperlipidemia) Other Liver cancer Lung cancer Other Cerebrovascular accident Family history of arthritis Family history of lung disease Family history of seizure disorder Social History Social History Social History: Caffeine-coffee Smoking packs per day: 1 Smoking cigarettes per day: 20.0 Years smoked: 35 Smoking pack-years: 35.00 Smoking status: Former smoker Tobacco type: cigarettes Smoking end date: 10/28/06 Alcohol intake: never Substance use: never Substance use type: does not use Do You Feel Safe in your Home?: Yes Lack of Transportation: No Lack of Food: Never True Current Housing: I Have Housing Concerned About Future Housing: No Difficulty Paying Gas/Electric Bills: No Difficulty Paying for Meds: No Currently Unemployed: No Education: High School Diploma/GED Difficulty w/ Childcare or Family Care: No Living arrangements: alone Occupation/Education: retired Gender identity (if verbalized by the patient): Female Spiritual care concerns: No Meds Home Medication
[2024-06-07] MEDS: HALOPERIDOL LACTATE 5 MG/ML VIAL IM (02:08)
[2024-06-07 02:28] LABS: Add Urine Microscopic? YES; Appearance Urine Cloudy (Clear); Bacteria Urine 1+ /hpf; Bilirubin Urine Negative (Negative); Blood Urine Negative (Negative); Budding Yeast Urine Present /hpf; Color Urine Yellow (Yellow); Glucose Urine UA 2+ mg/dL (Negative); Ketones Urine 1+ mg/dL (Negative); Leukocyte Esterase Ur 2+ LEU/UL (Negative); Need Manual Microscopic Reviewed; Nitrate Urine Negative (Negative); Protein Urine 2+ mg/dL (Negative); Specific Grav Ur 1.025 (1.001-1.035); Squamous Epithelial Cell Urine Many /hpf (Few); WBC Urine 51-100 /hpf (0-3)
--- NOTE | 2024-06-07 02:57 | ADMGEN ---
This patient, [place] Ambriz, was admitted to [facility] Surg Room 306-02. Patient/family oriented to hospital policies and general routines including ID bracelet, bed and alarms, visiting hours, pain management, procedures, bathroom and other care routines, personal items, smoking policy, room service/diet, and visiting hours. Information on how to activate the Rapid Response Team has been discussed. Patient/Family are encouraged to report perceived risks to care and to ask questions if they do not understand what they are told or what they should do.
[2024-06-07] MEDS: ALBUTEROL SULFATE NEB 2.5 MG/3 ML INH INHALATION (05:11)
[2024-06-07] MEDS: cefTRIAXone 2 GM/NS 100 ML 2 GM/100 ML BAG IVPB (05:39)
[2024-06-07] MEDS: FLUTICASONE/UMECLIDIN/VILANTER 100-62.5-25 MCG ELLIPTA 1 PUFF INHALATION (07:35)
[2024-06-07] MEDS: APIXABAN 5 MG TABLET PO ×2 (08:11→21:16)
[2024-06-07] MEDS: dilTIAZem HCL CD 240 MG CAP.24HR PO ×2 (08:11→21:16)
[2024-06-07] MEDS: LETROZOLE (*CHEMO) 2.5 MG TABLET PO (08:11)
[2024-06-07] MEDS: PRAVASTATIN SODIUM 20 MG TABLET BY MOUTH (08:11)
[2024-06-07] MEDS: EMPAGLIFLOZIN 10 MG TABLET PO (08:11)
[2024-06-07] MEDS: SERTRALINE HCL 50 MG TABLET BY MOUTH (08:11)
[2024-06-07] MEDS: ROFLUMILAST 500 MCG TABLET PO (08:11)
[2024-06-07] MEDS: PANTOPRAZOLE 40 MG TABLET BY MOUTH ×2 (08:11→21:16)
[2024-06-07 12:06] LABS: Glucose Point of Care 120 mg/dl (65-105)
--- NOTE | 2024-06-07 13:21 | PM.IMPN ---
Progress Note: A&P Assessment and Plan (1) Lung cancer: Qualifiers: Laterality: left Lung location: upper lobe of lung Qualified Code(s): C34.12 - Malignant neoplasm of upper lobe, left bronchus or lung Code(s): C34.90 - Malignant neoplasm of unspecified part of unspecified bronchus or lung Status: Acute Assessment and Plan: follow-up in outpatient setting (2) Restless leg syndrome: Onset Date: ~03/2021 Code(s): G25.81 - Restless legs syndrome Status: Acute Assessment and Plan: continue home meds (3) Former smoker: Code(s): Z87.891 - Personal history of nicotine dependence Status: Acute Assessment and Plan: unchanged (4) Obstructive sleep apnea: Onset Date: ~01/2021 Code(s): G47.33 - Obstructive sleep apnea (adult) (pediatric) Status: Acute Assessment and Plan: on supplemental oxygen by nasal cannula (5) Essential hypertension: Code(s): I10 - Essential (primary) hypertension Status: Acute Assessment and Plan: continue home meds (6) COPD (chronic obstructive pulmonary disease): Qualifiers: COPD type: unspecified COPD Qualified Code(s): J44.9 - Chronic obstructive pulmonary disease, unspecified Code(s): J44.9 - Chronic obstructive pulmonary disease, unspecified Status: Acute Assessment and Plan: continue home meds (7) Diabetes mellitus: Code(s): E11.9 - Type 2 diabetes mellitus without complications Status: Acute Assessment and Plan: resume insulin (8) Hyponatremia: Code(s): E87.1 - Hypo-osmolality and hyponatremia Status: Acute Assessment and Plan: holding hydrochlorothiazide continue NS (9) Hypochloremia: Code(s): E87.8 - Other disorders of electrolyte and fluid balance, not elsewhere classified Status: Acute Assessment and Plan: patient receiving NS (10) Hypokalemia: Code(s): E87.6 - Hypokalemia Status: Acute Assessment and Plan: replace as needed Plan Assessment and plan Bacterial pneumonia versus radiation pneumonitis Patient has a leukocytosis and chest x-ray showed worsening infiltrates. Start cefepime and doxycycline, MRSA pending. Blood and sputum culture ordered. Monitor very closely. Hypokalemia and hyponatremia Continue with the patient potassium replaced extremities are patient Monitor and replace accordingly. Lung cancer Patient on treatments, continue follow-up with outpatient Oncology for continued treatment. Restless leg syndrome Continue medications. Obstructive sleep apnea Continue CPAP Hypertension Titrate medications with clinical course. COPD not in exacerbation Continue home bronchodilators Type 2 diabetes Sliding scale insulin with Accu-Cheks and adjust with clinical course DVT prophylaxis on Eliquis. Subjective Date/time seen: 06/07/24 13:21 Interval history: Comfortable at bedside CXR showed pneumonia vs radiation pneumonitis Review of Systems Review of Systems: Nausea, vomiting, poor per orally intake Exam Narrative: patient is sitting in a stretcher Const: General: cooperative, comfortable, no acute distress, well developed, alert, awake, ill appearing chronically and average body habitus Nutritional Appearance: average body habitus Orientation/consciousness: patient oriented x3 Other: on supplemental O2 by NC HENMT: Head: normal to inspection, normocephalic and atraumatic Ears: hearing grossly normal bilaterally Face/Nose/Sinus: normal facial exam Face and sinus: normal facial exam Eyes: General: appearance normal, both eyes and all related structures Pupils: Equal, round and reactive pupils present EOM: EOMs intact bilaterally Neck: Neck: full ROM, no lymphadenopathy and no JVD Thyroid: thyroid normal Lymphatic: no lymphadenopathy noted Resp:
[2024-06-07] MEDS: DOXYCYCLINE 100 MG/NS 100 ML 100 MG/100 ML BAG IVPB ×2 (13:35→21:18)
[2024-06-07] MEDS: CENTRAL LINE FLUSH 10 ML IV PUSH ×2 (13:35→22:53)
[2024-06-07] MEDS: CEFEPIME 2 GM/NS 50 ML 2 GM/50 ML BAG IVPB ×2 (13:36→22:51)
[2024-06-07 15:02] LABS: MRSA (PCR) NOT DETECTED (NOT DETECTE)
[2024-06-07 15:40] LABS: Iron 16 ug/dL (37-170)
[2024-06-07 15:50] LABS: Percent Iron Saturation 8 % (20-50)
[2024-06-07 16:58] LABS: Glucose Point of Care 95 mg/dl (65-105)
--- NOTE | 2024-06-07 21:48 | PC.NURSE ---
SPoke with Dr. Loera about patient c/o vaginal yeast infection, after fluconazole in ED. Dr. Loera says to order clotrimazole cream to apply to vagina.
[2024-06-08] VITALS (13 sets, daily range): BP systolic 106–120; BP diastolic 38–72; PULSE 77–103; RESP 16–20; TEMP 36.7–37; O2SAT 93–98
--- NOTE | 2024-06-08 04:29 | PC.NURSE ---
This nurse precepted Milady Rosa RN License Pending. I agree with her assessment and charting.
[2024-06-08] MEDS: CEFEPIME 2 GM/NS 50 ML 2 GM/50 ML BAG IVPB ×3 (05:58→21:59)
[2024-06-08] MEDS: CENTRAL LINE FLUSH 10 ML IV PUSH ×3 (05:59→20:47)
[2024-06-08 06:52] LABS: Basophils Absolute Auto 0.1 K/mm3 (0.0-0.1); Basophils Percent Auto 0.2 % (0.2-1.2); Hematocrit 25.6 % (37.0-47.0); Hemoglobin 7.7 g/dL (12.0-15.0); Immature Granulocyte Absolute 0.86 K/mm3 (0.00-0.031); Immature Granulocyte Percent A 3.9 % (0-0.5); Lymphocytes Absolute Auto 0.66 K/mm3 (0.9-3.2); Mean Corpuscular HGB Conc 30.1 g/dl (32-36); Mean Corpuscular Hemoglobin 25.2 pg (26-34); Mean Corpuscular Volume 83.7 fl (80-100); Mean Platelet Volume 8.7 fl (7.4-10.4); Monocytes Absolute Auto 1.4 K/mm3 (0.1-0.6); Monocytes Percent Auto 6.5 % (2.6-8.5); Neutrophils Absolute Auto 18.8 K/mm3 (1.3-6.7); Neutrophils Percent Auto 86.4 % (45.5-73.1); Platelet Count Result 362 k/mm3 (150-375); Red Blood Count 3.06 M/mm3 (4.2-5.4); Red Cell Distribution Width 16.5 % (11.5-14.5); White Blood Count 21.8 K/mm3 (4.5-10.0)
[2024-06-08 07:03] LABS: Alanine Aminotransferase 26 U/L (6-35); Albumin Level 2.5 g/dL (3.5-5.1); Alkaline Phosphatase 74 U/L (38-126); Anion Gap 8 mmol/L (4-12); Aspartate Amino Transferase 34 U/L (14-36); Bilirubin,Total 0.6 mg/dL (0.2-1.3); Blood Urea Nitrogen 21 mg/dL (7-17); Calcium 7.7 mg/dL (8.4-10.2); Carbon Dioxide 27 mmol/L (22-30); Chloride 95 mmol/L (98-107); Estimated CRCL calculation 80 ml/min; Estimated Glomerular Filt Rate > 60; Glucose 95 mg/dL (65-110); Magnesium 1.8 mg/dL (1.6-2.3); Sodium 130 mmol/L (137-145)
[2024-06-08 07:07] LABS: Lactic Acid Reflex < 0.5 mmol/L (0.7-2.0)
[2024-06-08] MEDS: FLUTICASONE/UMECLIDIN/VILANTER 100-62.5-25 MCG ELLIPTA 1 PUFF INHALATION (07:51)
[2024-06-08 08:12] LABS: Glucose Point of Care 97 mg/dl (65-105)
[2024-06-08] MEDS: SERTRALINE HCL 50 MG TABLET BY MOUTH (08:20)
[2024-06-08] MEDS: PRAVASTATIN SODIUM 20 MG TABLET BY MOUTH (08:20)
[2024-06-08] MEDS: EMPAGLIFLOZIN 10 MG TABLET PO (08:20)
[2024-06-08] MEDS: DOXYCYCLINE 100 MG/NS 100 ML 100 MG/100 ML BAG IVPB ×2 (08:20→20:43)
[2024-06-08] MEDS: APIXABAN 5 MG TABLET PO ×2 (08:20→20:43)
[2024-06-08] MEDS: LETROZOLE (*CHEMO) 2.5 MG TABLET PO (08:20)
[2024-06-08] MEDS: PANTOPRAZOLE 40 MG TABLET BY MOUTH ×2 (08:20→20:43)
[2024-06-08] MEDS: dilTIAZem HCL CD 240 MG CAP.24HR PO ×2 (08:21→20:42)
[2024-06-08] MEDS: ROFLUMILAST 500 MCG TABLET PO (08:21)
--- NOTE | 2024-06-08 09:57 | PM.IMPN ---
Progress Note: A&P Assessment and Plan (1) Lung cancer: Qualifiers: Laterality: left Lung location: upper lobe of lung Qualified Code(s): C34.12 - Malignant neoplasm of upper lobe, left bronchus or lung Code(s): C34.90 - Malignant neoplasm of unspecified part of unspecified bronchus or lung Status: Acute Assessment and Plan: follow-up in outpatient setting (2) Restless leg syndrome: Onset Date: ~03/2021 Code(s): G25.81 - Restless legs syndrome Status: Acute Assessment and Plan: continue home meds (3) Former smoker: Code(s): Z87.891 - Personal history of nicotine dependence Status: Acute Assessment and Plan: unchanged (4) Obstructive sleep apnea: Onset Date: ~01/2021 Code(s): G47.33 - Obstructive sleep apnea (adult) (pediatric) Status: Acute Assessment and Plan: on supplemental oxygen by nasal cannula (5) Essential hypertension: Code(s): I10 - Essential (primary) hypertension Status: Acute Assessment and Plan: continue home meds (6) COPD (chronic obstructive pulmonary disease): Qualifiers: COPD type: unspecified COPD Qualified Code(s): J44.9 - Chronic obstructive pulmonary disease, unspecified Code(s): J44.9 - Chronic obstructive pulmonary disease, unspecified Status: Acute Assessment and Plan: continue home meds (7) Diabetes mellitus: Code(s): E11.9 - Type 2 diabetes mellitus without complications Status: Acute Assessment and Plan: resume insulin (8) Hyponatremia: Code(s): E87.1 - Hypo-osmolality and hyponatremia Status: Acute Assessment and Plan: holding hydrochlorothiazide continue NS (9) Hypochloremia: Code(s): E87.8 - Other disorders of electrolyte and fluid balance, not elsewhere classified Status: Acute Assessment and Plan: patient receiving NS (10) Hypokalemia: Code(s): E87.6 - Hypokalemia Status: Acute Assessment and Plan: replace as needed Plan Assessment and plan Bacterial pneumonia versus radiation pneumonitis Patient has a leukocytosis and chest x-ray showed worsening infiltrates. Start cefepime and doxycycline, MRSA pending. Blood and sputum culture ordered. Monitor very closely. Chronic hypoxemic respiratory failure, patient on 2 L oxygen at baseline currently on 2 liters oxygen leukocytosis likely from recent steroid use patient on Steroid for months and was successfully tapered off on Saturday repeat CXR showed stable opacities Hypokalemia and hyponatremia NA 130 and K 3.0 , continue replacement and monitoring Monitor and replace accordingly. Lung cancer Patient on treatments, continue follow-up with outpatient Oncology for continued treatment. Restless leg syndrome Continue medications. Obstructive sleep apnea Continue CPAP Hypertension Titrate medications with clinical course. COPD not in exacerbation Continue home bronchodilators Type 2 diabetes Sliding scale insulin with Accu-Cheks and adjust with clinical course DVT prophylaxis on Eliquis. Subjective Date/time seen: 06/08/24 09:57 Interval history: Patient is comfortable bedside, noted that she was on steroid but was tapered off on Saturday. Leukocytosis likely from steroid, repeat chest x-ray this morning showed stable opacities, likely radiation pneumonitis. Hemoglobin 7 point so, essentially is 8, started patient on IV infusion of iron 500mg today and another 500mg tomorrow and no more iron supplementation. Replace K and monitor electrolytes and Hb possible discharge tomorrow if hb and electrolytes are stable patient on current home oxygen and in no distress Review of Systems Review of Systems: Nausea, vomiting, poor per orally intake Exam Narrative: patient is sitting in a stretcher Const: General: co
[2024-06-08] MEDS: IRON SUCROSE COMPLEX 400 MG, IRON SUCROSE COMPLEX 100 MG in SODIUM CHLORIDE 0.9% IV 250 ML 78.57 MG IVPB (10:41)
[2024-06-08] MEDS: POTASSIUM CHLORIDE 20 MEQ PACKET (FOR LIQUID) 40 MEQ PO (10:42)
[2024-06-08] MEDS: POTASSIUM CHLORIDE INJ 40 MEQ in SODIUM CHLORIDE 0.9% IV 500 ML 130 MEQ IVPB (10:43)
[2024-06-08 11:42] LABS: Glucose Point of Care 109 mg/dl (65-105)
[2024-06-08 16:45] LABS: Glucose Point of Care 82 mg/dl (65-105)
--- NOTE | 2024-06-08 18:13 | PC.NURSE ---
Dr Huggins, who was indicated on hospitalist sheet, was called about the sepsis bullsye on worklist about this patient. Qualifying linda were given to the MD. MD called this nurse back and told me that he did not have this patient as indicated on the hospitalist sheet assignments and Dr. Sapp was the hospitalist assigned to pt. I then gave the qualifying values to Senait and tried changing the doctor notified under the sepsis worklist, but there was no spot to edit the doctor notified. This note is to clarify that the doctor notified for the sepsis bulleye is Dr. Sapp.
[2024-06-08 19:45] LABS: Glucose Point of Care 83 mg/dl (65-105)
[2024-06-08] MEDS: ALBUTEROL SULFATE NEB 2.5 MG/3 ML INH INHALATION (23:39)
[2024-06-09] VITALS (13 sets, daily range): BP systolic 113–121; BP diastolic 45–62; PULSE 81–95; RESP 16–20; TEMP 36.1–37.4; O2SAT 95–97
[2024-06-09] MEDS: ONDANSETRON INJ 4 MG/2 ML VIAL IV PUSH ×5 (02:23→21:47)
[2024-06-09] MEDS: CEFEPIME 2 GM/NS 50 ML 2 GM/50 ML BAG IVPB ×3 (05:18→23:01)
[2024-06-09] MEDS: CENTRAL LINE FLUSH 10 ML IV PUSH ×3 (05:18→21:47)
[2024-06-09 05:43] LABS: Basophils Absolute Auto 0.1 K/mm3 (0.0-0.1); Basophils Percent Auto 0.3 % (0.2-1.2); Hematocrit 25.5 % (37.0-47.0); Hemoglobin 7.7 g/dL (12.0-15.0); Immature Granulocyte Absolute 1.67 K/mm3 (0.00-0.031); Immature Granulocyte Percent A 6.1 % (0-0.5); Lymphocytes Absolute Auto 0.77 K/mm3 (0.9-3.2); Lymphocytes Percent Auto 2.8 % (18.3-44.2); Mean Corpuscular HGB Conc 30.2 g/dl (32-36); Mean Corpuscular Hemoglobin 25.5 pg (26-34); Mean Corpuscular Volume 84.4 fl (80-100); Mean Platelet Volume 9.3 fl (7.4-10.4); Monocytes Absolute Auto 1.5 K/mm3 (0.1-0.6); Monocytes Percent Auto 5.3 % (2.6-8.5); Neutrophils Absolute Auto 23.5 K/mm3 (1.3-6.7); Neutrophils Percent Auto 85.5 % (45.5-73.1); Platelet Count Result 396 k/mm3 (150-375); Red Blood Count 3.02 M/mm3 (4.2-5.4); Red Cell Distribution Width 16.9 % (11.5-14.5); White Blood Count 27.4 K/mm3 (4.5-10.0)
[2024-06-09 05:55] LABS: Platelet Estimate Adequate (Adequate)
[2024-06-09 05:56] LABS: Alanine Aminotransferase 25 U/L (6-35); Albumin Level 2.5 g/dL (3.5-5.1); Alkaline Phosphatase 78 U/L (38-126); Anion Gap 11 mmol/L (4-12); Anisocytosis 1+; Aspartate Amino Transferase 26 U/L (14-36); Bilirubin,Total 0.5 mg/dL (0.2-1.3); Blood Urea Nitrogen 19 mg/dL (7-17); Calcium 7.7 mg/dL (8.4-10.2); Carbon Dioxide 22 mmol/L (22-30); Chloride 98 mmol/L (98-107); Estimated CRCL calculation 80 ml/min; Estimated Glomerular Filt Rate > 60; Glucose 86 mg/dL (65-110); Hypochromasia 1+; Magnesium 1.9 mg/dL (1.6-2.3); Ovalocytes 1+; Potassium 3.3 mmol/L (3.4-5.0); Schistocytes None Seen; Sodium 131 mmol/L (137-145)
[2024-06-09 05:58] LABS: Lactic Acid Reflex < 0.5 mmol/L (0.7-2.0)
[2024-06-09] MEDS: FLUTICASONE/UMECLIDIN/VILANTER 100-62.5-25 MCG ELLIPTA 1 PUFF INHALATION (07:36)
[2024-06-09] MEDS: DOXYCYCLINE 100 MG/NS 100 ML 100 MG/100 ML BAG IVPB ×2 (07:58→21:45)
[2024-06-09] MEDS: ROFLUMILAST 500 MCG TABLET PO (07:59)
[2024-06-09] MEDS: EMPAGLIFLOZIN 10 MG TABLET PO (07:59)
[2024-06-09] MEDS: APIXABAN 5 MG TABLET PO ×2 (07:59→21:45)
[2024-06-09] MEDS: SERTRALINE HCL 50 MG TABLET BY MOUTH (07:59)
[2024-06-09] MEDS: LETROZOLE (*CHEMO) 2.5 MG TABLET PO (07:59)
[2024-06-09] MEDS: PRAVASTATIN SODIUM 20 MG TABLET BY MOUTH (07:59)
[2024-06-09] MEDS: PANTOPRAZOLE 40 MG TABLET BY MOUTH ×2 (07:59→21:45)
[2024-06-09] MEDS: dilTIAZem HCL CD 240 MG CAP.24HR PO ×2 (07:59→21:45)
[2024-06-09] MEDS: POTASSIUM CHLORIDE 20 MEQ ER TABLET 40 MEQ PO (09:10)
[2024-06-09 10:37] LABS: Glucose Point of Care 91 mg/dl (65-105)
[2024-06-09 11:43] LABS: Glucose Point of Care 111 mg/dl (65-105)
[2024-06-09 16:32] LABS: Glucose Point of Care 91 mg/dl (65-105)
--- NOTE | 2024-06-09 16:34 | PM.IMPN ---
Progress Note: A&P Assessment and Plan (1) Lung cancer: Qualifiers: Laterality: left Lung location: upper lobe of lung Qualified Code(s): C34.12 - Malignant neoplasm of upper lobe, left bronchus or lung Code(s): C34.90 - Malignant neoplasm of unspecified part of unspecified bronchus or lung Status: Acute Assessment and Plan: follow-up in outpatient setting (2) Restless leg syndrome: Onset Date: ~03/2021 Code(s): G25.81 - Restless legs syndrome Status: Acute Assessment and Plan: continue home meds (3) Former smoker: Code(s): Z87.891 - Personal history of nicotine dependence Status: Acute Assessment and Plan: unchanged (4) Obstructive sleep apnea: Onset Date: ~01/2021 Code(s): G47.33 - Obstructive sleep apnea (adult) (pediatric) Status: Acute Assessment and Plan: on supplemental oxygen by nasal cannula (5) Essential hypertension: Code(s): I10 - Essential (primary) hypertension Status: Acute Assessment and Plan: continue home meds (6) COPD (chronic obstructive pulmonary disease): Qualifiers: COPD type: unspecified COPD Qualified Code(s): J44.9 - Chronic obstructive pulmonary disease, unspecified Code(s): J44.9 - Chronic obstructive pulmonary disease, unspecified Status: Acute Assessment and Plan: continue home meds (7) Diabetes mellitus: Code(s): E11.9 - Type 2 diabetes mellitus without complications Status: Acute Assessment and Plan: resume insulin (8) Hyponatremia: Code(s): E87.1 - Hypo-osmolality and hyponatremia Status: Acute Assessment and Plan: holding hydrochlorothiazide continue NS (9) Hypochloremia: Code(s): E87.8 - Other disorders of electrolyte and fluid balance, not elsewhere classified Status: Acute Assessment and Plan: patient receiving NS (10) Hypokalemia: Code(s): E87.6 - Hypokalemia Status: Acute Assessment and Plan: replace as needed Plan #Bacterial pneumonia versus radiation pneumonitis Uptrend WBC 21> 27.4 Denies any fever chills or cough Patient has a leukocytosis and chest x-ray showed worsening infiltrates. Cont cefepime and doxycycline If WBC continues to rise consider meropenem. MRSA negative Blood and sputum culture ordered. Monitor very closely. Chronic hypoxemic respiratory failure, patient on 2 L oxygen at baseline currently on 2 liters oxygen leukocytosis likely from recent steroid use patient on Steroid for months and was successfully tapered off on Saturday repeat CXR showed stable opacities Hypokalemia and hyponatremia NA 131 and K 3.3 , continue replacement and monitoring Monitor and replace accordingly. Lung cancer Patient on treatments, continue follow-up with outpatient[facility] for continued treatment. Restless leg syndrome Continue medications. Obstructive sleep apnea Continue CPAP Hypertension Titrate medications with clinical course. COPD not in exacerbation Continue home bronchodilators Type 2 diabetes Sliding scale insulin with Accu-Cheks and adjust with clinical course DVT prophylaxis on Eliquis. Subjective Date/time seen: 06/09/24 16:34 Interval history: Patient was examined at the bedside. Patient has a past medical history of breast cancer, lung cancer, thyroid cancer. Patient follows up with Dr. Landen Patel at [facility] for her cancer treatment. Current admission patient is on doxycycline and cefepime. Patient uses 2 L nasal cannula at home. Patient lives in the apartment and ambulates ambulates well. Patient denies any fevers or chills. Patient was recently admitted and was diagnosed with Metapneumovirus and was on steroid. During that admission patient is not on any steroid WBC is increased from 21 to 27.4. Review of Systems Review of Systems:
[2024-06-09 21:29] LABS: Glucose Point of Care 89 mg/dl (65-105)
[2024-06-09] MEDS: MICONAZOLE NITRATE 2% VAGINAL CREAM 45 GM TUBE 1 APPFUL VAGINAL (21:47)
[2024-06-09] MEDS: HYDROcodone/acetaminophen (*CRX) 5-325 MG TABLET 1 TAB PO (21:51)
[2024-06-09] MEDS: ALBUTEROL SULFATE NEB 2.5 MG/3 ML INH INHALATION (23:37)
[2024-06-10] VITALS (14 sets, daily range): BP systolic 109–120; BP diastolic 44–90; PULSE 77–100; RESP 18–21; TEMP 35.8–37; O2SAT 97–98
[2024-06-10 03:49] LABS: Glucose Point of Care 98 mg/dl (65-105)
[2024-06-10] MEDS: CEFEPIME 2 GM/NS 50 ML 2 GM/50 ML BAG IVPB (05:20)
[2024-06-10] MEDS: CENTRAL LINE FLUSH 10 ML IV PUSH ×3 (05:22→23:07)
[2024-06-10 05:38] LABS: Basophils Absolute Auto 0.1 K/mm3 (0.0-0.1); Basophils Percent Auto 0.3 % (0.2-1.2); Hematocrit 25.4 % (37.0-47.0); Hemoglobin 7.6 g/dL (12.0-15.0); Immature Granulocyte Absolute 2.05 K/mm3 (0.00-0.031); Immature Granulocyte Percent A 7.1 % (0-0.5); Lymphocytes Absolute Auto 0.81 K/mm3 (0.9-3.2); Lymphocytes Percent Auto 2.8 % (18.3-44.2); Mean Corpuscular HGB Conc 29.9 g/dl (32-36); Mean Corpuscular Hemoglobin 25.2 pg (26-34); Mean Corpuscular Volume 84.1 fl (80-100); Mean Platelet Volume 8.6 fl (7.4-10.4); Monocytes Absolute Auto 1.6 K/mm3 (0.1-0.6); Monocytes Percent Auto 5.5 % (2.6-8.5); Neutrophils Absolute Auto 24.5 K/mm3 (1.3-6.7); Neutrophils Percent Auto 84.3 % (45.5-73.1); Platelet Count Result 387 k/mm3 (150-375); Red Blood Count 3.02 M/mm3 (4.2-5.4); Red Cell Distribution Width 16.9 % (11.5-14.5)
[2024-06-10] MEDS: ONDANSETRON INJ 4 MG/2 ML VIAL IV PUSH ×4 (05:44→23:09)
[2024-06-10 05:52] LABS: Alanine Aminotransferase 24 U/L (6-35); Albumin Level 2.4 g/dL (3.5-5.1); Alkaline Phosphatase 87 U/L (38-126); Anion Gap 10 mmol/L (4-12); Aspartate Amino Transferase 25 U/L (14-36); Bilirubin,Total 0.4 mg/dL (0.2-1.3); Blood Urea Nitrogen 20 mg/dL (7-17); Calcium 7.9 mg/dL (8.4-10.2); Carbon Dioxide 21 mmol/L (22-30); Chloride 99 mmol/L (98-107); Estimated CRCL calculation 80 ml/min; Estimated Glomerular Filt Rate > 60; Glucose 93 mg/dL (65-110); Potassium 3.5 mmol/L (3.4-5.0); Sodium 130 mmol/L (137-145)
[2024-06-10 06:35] LABS: Platelet Estimate Adequate (Adequate)
[2024-06-10 06:36] LABS: Anisocytosis 1+; Hypochromasia 1+
[2024-06-10 06:45] LABS: Schistocytes None Seen
[2024-06-10 07:35] LABS: Glucose Point of Care 97 mg/dl (65-105)
[2024-06-10] MEDS: FLUTICASONE/UMECLIDIN/VILANTER 100-62.5-25 MCG ELLIPTA 1 PUFF INHALATION (07:37)
[2024-06-10] MEDS: POTASSIUM CHLORIDE 20 MEQ ER TABLET 40 MEQ PO (08:19)
[2024-06-10] MEDS: PANTOPRAZOLE 40 MG TABLET BY MOUTH ×2 (08:21→20:17)
[2024-06-10] MEDS: EMPAGLIFLOZIN 10 MG TABLET PO (08:21)
[2024-06-10] MEDS: PRAVASTATIN SODIUM 20 MG TABLET BY MOUTH (08:21)
[2024-06-10] MEDS: LETROZOLE (*CHEMO) 2.5 MG TABLET PO (08:21)
[2024-06-10] MEDS: DOXYCYCLINE 100 MG/NS 100 ML 100 MG/100 ML BAG IVPB ×2 (08:21→20:12)
[2024-06-10] MEDS: ROFLUMILAST 500 MCG TABLET PO (08:21)
[2024-06-10] MEDS: APIXABAN 5 MG TABLET PO ×2 (08:21→20:17)
[2024-06-10] MEDS: dilTIAZem HCL CD 240 MG CAP.24HR PO ×2 (08:21→20:17)
[2024-06-10] MEDS: SERTRALINE HCL 50 MG TABLET BY MOUTH (08:21)
[2024-06-10] MEDS: MEROPENEM 1 GM/NS 100 ML 1 GM/100 ML BAG IVPB ×3 (08:22→23:07)
[2024-06-10] MEDS: VANCOMYCIN 1,250 MG/NS 250 ML 1,250 MG/250 ML BAG 166.67 MG IVPB (09:55)
[2024-06-10 10:20] LABS: MRSA (PCR) NOT DETECTED (NOT DETECTE)
--- NOTE | 2024-06-10 10:41 | PM.IMPN ---
Progress Note: A&P Assessment and Plan (1) Pneumonia: Qualifiers: Pneumonia type: due to unspecified organism Laterality: unspecified laterality Lung location: unspecified part of lung Qualified Code(s): J18.9 - Pneumonia, unspecified organism Code(s): J18.9 - Pneumonia, unspecified organism Status: Acute Assessment and Plan: Patient presents with nausea and vomiting. White count was elevated on admission. Chest x-ray shows worsened airspace opacities with volume loss in the left apex likely radiation pneumonitis. Uptrend WBC 21> 29 Denies any fever chills or cough. Her diarrhea. Treated with cefepime and doxycycline MRSA nasal swab was negative Urine culture negative. Sputum culture negative. Blood cultures no growth to date Will adjust antibiotics to meropenem and vancomycin. Check CRP. Check CT of the chest (2) Leukocytosis: Code(s): D72.829 - Elevated white blood cell count, unspecified Status: Acute Assessment and Plan: Patient has past medical history of leukocytosis although unclear on extent of this. No steroids listed. Will discuss with her oncologist. (3) Lung cancer: Qualifiers: Laterality: left Lung location: upper lobe of lung Qualified Code(s): C34.12 - Malignant neoplasm of upper lobe, left bronchus or lung Code(s): C34.90 - Malignant neoplasm of unspecified part of unspecified bronchus or lung Status: Acute Assessment and Plan: Patient on treatment. Continue follow-up with outpatient Dr [facility] for continued treatment. Called [facility] ( for Dr Alarcon) and left message (4) Chronic respiratory failure: Code(s): J96.10 - Chronic respiratory failure, unspecified whether with hypoxia or hypercapnia Status: Acute Assessment and Plan: Chronic hypoxemic respiratory failure, patient on 2 L oxygen at baseline currently on 2 liters oxygen (5) Diabetes mellitus: Code(s): E11.9 - Type 2 diabetes mellitus without complications Status: Acute Assessment and Plan: The patient's blood glucose was reviewed on 06/10 Glucose remains well controlled. Continue AccuCheks covering with sliding scale. Hypoglycemia protocol available as needed. Continue to follow (6) Obstructive sleep apnea: Onset Date: ~01/2021 Code(s): G47.33 - Obstructive sleep apnea (adult) (pediatric) Status: Acute Assessment and Plan: Obstructive sleep apnea Patient refusing CPAP (7) Essential hypertension: Code(s): I10 - Essential (primary) hypertension Status: Acute Assessment and Plan: Patient's blood pressure was reviewed on 06/10 Blood pressure remains well controlled. Will continue to monitor (8) COPD (chronic obstructive pulmonary disease): Qualifiers: COPD type: unspecified COPD Qualified Code(s): J44.9 - Chronic obstructive pulmonary disease, unspecified Code(s): J44.9 - Chronic obstructive pulmonary disease, unspecified Status: Acute Assessment and Plan: COPD not in exacerbation Continue home bronchodilators (9) Hyponatremia: Code(s): E87.1 - Hypo-osmolality and hyponatremia Status: Acute Assessment and Plan: Hypokalemia and hyponatremia. Na 130 today. Check urine lytes. Check cortisol and TSH Potassium better at 3.5. Continue to replace and monitoring (10) Hypokalemia: Code(s): E87.6 - Hypokalemia Status: Acute Assessment and Plan: As above. Plan Code status - full DVT prophylaxis on Eliquis. Subjective Date/time seen: 06/10/24 10:41 Interval history: 74yo female squamous cell lung cancer, COPD/emphysema, HTN, insulin-dependent DM, chronic hypoxic respiratory failure on 2L, SHARYN (unable to tolerate) and was recently discharged from [facility] for hemoptysis, mucous plugging s/p bronchoscopy here for nausea and vomiting.
[2024-06-10 11:18] LABS: Glucose Point of Care 129 mg/dl (65-105)
[2024-06-10] MEDS: VANCOMYCIN 1,000 MG/NS 250 ML 1,000 MG/250 ML BAG 250 MG IVPB (11:25)
[2024-06-10 12:25] LABS: CRP 19.6 mg/dL (<1.0)
[2024-06-10 12:28] LABS: Creatinine Urine 50.5 mg/dL; Urea Random Urine 553 MG/DL
[2024-06-10 12:30] LABS: Sodium Urine Random 19 meq/L
[2024-06-10] MEDS: ALBUTEROL SULFATE NEB 2.5 MG/3 ML INH INHALATION ×2 (14:35→23:46)
[2024-06-10 16:14] LABS: Glucose Point of Care 127 mg/dl (65-105)
[2024-06-10] MEDS: HYDROcodone/acetaminophen (*CRX) 5-325 MG TABLET 1 TAB PO (20:17)
[2024-06-10] MEDS: MICONAZOLE NITRATE 2% VAGINAL CREAM 45 GM TUBE 1 APPFUL VAGINAL (20:18)
[2024-06-10] MEDS: VANCOMYCIN 1,500 MG/NS 500 ML 1,500 MG/500 ML BAG 250 MG IVPB (20:55)
[2024-06-10 21:43] LABS: Glucose Point of Care 102 mg/dl (65-105)
[2024-06-11] VITALS (14 sets, daily range): BP systolic 107–115; BP diastolic 41–56; PULSE 84–93; RESP 16–20; TEMP 36.3–37.3; O2SAT 96–98
[2024-06-11] MEDS: MEROPENEM 1 GM/NS 100 ML 1 GM/100 ML BAG IVPB ×3 (06:11→20:44)
[2024-06-11] MEDS: CENTRAL LINE FLUSH 10 ML IV PUSH ×2 (06:31→13:45)
[2024-06-11 06:36] LABS: Basophils Absolute Auto 0.1 K/mm3 (0.0-0.1); Basophils Percent Auto 0.4 % (0.2-1.2); Hematocrit 26.4 % (37.0-47.0); Hemoglobin 8.2 g/dL (12.0-15.0); Immature Granulocyte Absolute 2.39 K/mm3 (0.00-0.031); Immature Granulocyte Percent A 7.4 % (0-0.5); Lymphocytes Percent Auto 3.1 % (18.3-44.2); Mean Corpuscular HGB Conc 31.1 g/dl (32-36); Mean Corpuscular Hemoglobin 26.1 pg (26-34); Mean Corpuscular Volume 84.1 fl (80-100); Monocytes Absolute Auto 1.8 K/mm3 (0.1-0.6); Monocytes Percent Auto 5.5 % (2.6-8.5); Neutrophils Absolute Auto 27.1 K/mm3 (1.3-6.7); Neutrophils Percent Auto 83.6 % (45.5-73.1); Platelet Count Result 479 k/mm3 (150-375); Red Blood Count 3.14 M/mm3 (4.2-5.4); Red Cell Distribution Width 17.2 % (11.5-14.5); White Blood Count 32.4 K/mm3 (4.5-10.0)
[2024-06-11 06:53] LABS: Albumin Level 2.5 g/dL (3.5-5.1); Anion Gap 12 mmol/L (4-12); Blood Urea Nitrogen 18 mg/dL (7-17); Calcium 8.1 mg/dL (8.4-10.2); Carbon Dioxide 19 mmol/L (22-30); Chloride 97 mmol/L (98-107); Estimated CRCL calculation 69 ml/min; Estimated Glomerular Filt Rate > 60; Glucose 100 mg/dL (65-110); Magnesium 1.8 mg/dL (1.6-2.3); Phosphorus 2.4 mg/dL (2.5-4.5); Potassium 3.7 mmol/L (3.4-5.0); Sodium 128 mmol/L (137-145)
[2024-06-11 07:20] LABS: Anisocytosis 1+; Hypochromasia 1+; Microcytosis 1+ (NORMAL); Platelet Estimate Increased (Adequate); Schistocytes None Seen
[2024-06-11 07:39] LABS: Glucose Point of Care 100 mg/dl (65-105)
[2024-06-11] MEDS: VANCOMYCIN 1,500 MG/NS 500 ML 1,500 MG/500 ML BAG 250 MG IVPB (08:36)
[2024-06-11] MEDS: PANTOPRAZOLE 40 MG TABLET BY MOUTH (08:36)
[2024-06-11] MEDS: ROFLUMILAST 500 MCG TABLET PO (08:36)
[2024-06-11] MEDS: APIXABAN 5 MG TABLET PO ×2 (08:36→20:43)
[2024-06-11] MEDS: LETROZOLE (*CHEMO) 2.5 MG TABLET PO (08:36)
[2024-06-11] MEDS: POTASSIUM/PHOSPHORUS/SODIUM 1.5 GM PACKET 1 PACKET PO (08:36)
[2024-06-11] MEDS: PRAVASTATIN SODIUM 20 MG TABLET BY MOUTH (08:36)
[2024-06-11] MEDS: SERTRALINE HCL 50 MG TABLET BY MOUTH (08:36)
[2024-06-11] MEDS: EMPAGLIFLOZIN 10 MG TABLET PO (08:37)
[2024-06-11] MEDS: dilTIAZem HCL CD 240 MG CAP.24HR PO ×2 (08:37→20:43)
[2024-06-11] MEDS: FLUTICASONE/UMECLIDIN/VILANTER 100-62.5-25 MCG ELLIPTA 1 PUFF INHALATION (10:03)
[2024-06-11] MEDS: ALBUTEROL SULFATE NEB 2.5 MG/3 ML INH INHALATION ×2 (10:04→21:14)
[2024-06-11 11:33] LABS: Glucose Point of Care 126 mg/dl (65-105)
--- NOTE | 2024-06-11 11:57 | PM.IMPN ---
Progress Note: A&P Assessment and Plan (1) Pneumonia: Qualifiers: Laterality: unspecified laterality Lung location: unspecified part of lung Pneumonia type: due to unspecified organism Qualified Code(s): J18.9 - Pneumonia, unspecified organism Code(s): J18.9 - Pneumonia, unspecified organism Status: Acute Assessment and Plan: Patient presents with nausea and vomiting. White count was elevated on admission. Chest x-ray shows worsened airspace opacities with volume loss in the left apex likely radiation pneumonitis. MRSA nasal swab was negative Uptrend WBC 21> 29 Denies any fever chills or cough. No diarrhea. Treated with cefepime and doxycycline but WBC was climbing. Urine culture negative. Sputum culture negative. Blood cultures no growth to date CT Ch/A/P showing complete collapse of left lung upper lobe with small loculated left pleural effusion, mild pulmonary edema, radiation fibrosis involving the perihilar regions but no evidence of metastatic disease. CRP 19. Antibiotics changed to meropenem and vancomycin on 06/10 WBC up to 32.4K now but without clear source. Immature granulocytes up to 7.4% to suggest BM strain. PNA? CDiff but no diarrhea or findings on CT? Fungal? Continue current abx for now. Check Echo (2) Leukocytosis: Code(s): D72.829 - Elevated white blood cell count, unspecified Status: Acute Assessment and Plan: Patient has past medical history of leukocytosis although unclear on extent of this. White count at time of discharge from prior hospital was 16 K. She was on steroids at last discharge but not on steroids on admission As above (3) Lung cancer: Qualifiers: Laterality: left Lung location: upper lobe of lung Qualified Code(s): C34.12 - Malignant neoplasm of upper lobe, left bronchus or lung Code(s): C34.90 - Malignant neoplasm of unspecified part of unspecified bronchus or lung Status: Acute Assessment and Plan: Patient on treatment. Discussed the case with patient's oncology nurse 06/10. Patient was on a prednisone taper at time of discharge on June 04 and should have have been down to about 5 mg but not on Prednisone on admission The working diagnosis of the patient's lung findings were either radiation pneumonitis or lymphangitic spread of her cancer. The lung biopsy did show active cancer. Follow-up with outpatient Dr Alarcon [facility] for continued treatment. Called [facility] ( for Dr Alarcon) again today and left message (4) Chronic respiratory failure: Code(s): J96.10 - Chronic respiratory failure, unspecified whether with hypoxia or hypercapnia Status: Acute Assessment and Plan: Patient has chronic hypoxemic respiratory failure on 2 L oxygen at baseline. She remains on 2 liters oxygen Follow (5) Diabetes mellitus: Code(s): E11.9 - Type 2 diabetes mellitus without complications Status: Acute Assessment and Plan: The patient's blood glucose was reviewed on 06/11 Glucose remains well controlled. Continue AccuCheks covering with sliding scale. Hypoglycemia protocol available as needed. Continue to follow (6) Obstructive sleep apnea: Onset Date: ~01/2021 Code(s): G47.33 - Obstructive sleep apnea (adult) (pediatric) Status: Acute Assessment and Plan: Obstructive sleep apnea Patient refusing CPAP (7) Essential hypertension: Code(s): I10 - Essential (primary) hypertension Status: Acute Assessment and Plan: Patient's blood pressure was reviewed on 06/11 Blood pressure remains well controlled. Will continue to monitor (8) COPD (chronic obstructive pulmonary disease): Qualifiers: COPD type: unspecified COPD Qualified Code(s): J44.9 - Chronic obstructive pulmonary disease, unspecified Code(s): J44.9 - Chronic obstructive pulmonary disease, unspecified Status: Acute
[2024-06-11] MEDS: CALCIUM CARBONATE (TUMS) 500 MG (200 MG ELEMENTAL) PO ×2 (12:11→20:43)
[2024-06-11] MEDS: DOXYCYCLINE 100 MG/NS 100 ML 100 MG/100 ML BAG IVPB ×2 (12:11→20:43)
[2024-06-11] MEDS: ONDANSETRON INJ 4 MG/2 ML VIAL IV PUSH ×2 (12:50→17:44)
[2024-06-11 16:36] LABS: Glucose Point of Care 93 mg/dl (65-105)
[2024-06-11] MEDS: polyethylene glycoL 3350 17 GM POWD.PACK PO (17:45)
[2024-06-11 19:36] LABS: Glucose Point of Care 105 mg/dl (65-105)
[2024-06-11] MEDS: TIZANIDINE HCL 4 MG TABLET PO (20:43)
[2024-06-11] MEDS: HYDROcodone/acetaminophen (*CRX) 5-325 MG TABLET 1 TAB PO (20:44)
[2024-06-11] MEDS: PANTOPRAZOLE SODIUM IV 40 MG VIAL IV PUSH (20:44)
[2024-06-11] MEDS: MAG HYDROX/AL HYDROX/SIMETH 30 ML UDC PO (20:45)
[2024-06-11 22:09] LABS: Vancomycin Trough 12.2 ug/mL (10.0-20.0)
[2024-06-11] MEDS: SODIUM CHLORIDE 0.9% IV 250 ML 20 ML (22:16)
[2024-06-11] MEDS: MICONAZOLE NITRATE 2% VAGINAL CREAM 45 GM TUBE 1 APPFUL VAGINAL (22:16)
[2024-06-11] MEDS: VANCOMYCIN 1,750 MG/NS 500 ML 1,750 MG/500 ML BAG 250 MG IVPB (23:00)
[2024-06-12] VITALS (16 sets, daily range): BP systolic 107–143; BP diastolic 37–56; PULSE 69–96; RESP 18–23; TEMP 36.3–36.9; O2SAT 93–100
--- NOTE | 2024-06-12 | ECHO_ITS ---
Patient Info Name: Maine Ambriz Age: 74 years : 1950 Gender: Female Ht: 68 in Wt: 195 lbs BSA: 2.08 m2 HR: 82 bpm BP: 115 / 52 mmHg Heart Rhythm: Sinus Rhythm Technical Quality: Good Exam Date: 06/12/2024 9:10 AM Exam Location: Echo Lab Patient Status: Inpatient Admit Date: 06/10/2024 Staff Ordering Physician: Deng Rai MD Appeals Reviewer Veteran: Jeannine Cabrera RDCS Attending Provider: Tony Loera MD Exam Type: CA echo doppler color flow Study Info Indications - pul edema Complete two-dimensional, color flow and Doppler transthoracic echocardiogram is performed. Summary 1. Complete two-dimensional, color flow and Doppler transthoracic echocardiogram is performed. 2. Left ventricular chamber dimension is normal. 3. Left ventricular systolic function is normal, estimated at 65-70%. 4. There is mild concentric increased left ventricular wall thickness. 5. The left ventricular diastolic function is grade I diastolic dysfunction. 6. E/e' 18 is elevated. 7. There is mild aortic valve sclerosis. 8. There is trace aortic valve regurgitation. 9. The mitral valve has moderately calcified annulus. 10. No pulmonary hypertension, estimated pulmonary arterial systolic pressure is 33 mmHg. Left Ventricle E/e' 18 is elevated. Left ventricular chamber dimension is normal. Left ventricular systolic function is normal, estimated at 65-70%. There is mild concentric increased left ventricular wall thickness. The left ventricular diastolic function is grade I diastolic dysfunction. Right Ventricle Right ventricular systolic function is normal and with normal TAPSE 2.7 cm. Right ventricular chamber dimension is normal. Left Atria Left atrial chamber dimension is normal. Right Atria Right atrial chamber dimension is normal. Aortic Valve The aortic valve is trileaflet. There is mild aortic valve sclerosis. There is no aortic valve stenosis. There is trace aortic valve regurgitation. Pulmonic Valve There is no pulmonic regurgitation. Mitral Valve The mitral valve has moderately calcified annulus. There is no mitral valve stenosis. There is no mitral valve regurgitation. Tricuspid Valve There is no tricuspid valve regurgitation. No pulmonary hypertension, estimated pulmonary arterial systolic pressure is 33 mmHg. Pericardium/Pleural There is no pericardial effusion. Inferior Vena Cava Normal inferior vena cava with >50% collapse upon inspiration consistent with normal right atrial pressure, 5 mmHg. Aorta The aortic root size at the sinus of Valsalva is normal. Left Ventricular Outflow Tract Name Value Normal LVOT 2D LVOT Diameter 2.1 cm LVOT Doppler LVOT Peak Gradient 8 mmHg LVOT Mean Gradient 4 mmHg LVOT VTI 29 cm LVOT VTI/AV VTI Ratio 1.0 LVOT Stroke Volume 105 ml LVOT CO 7.9 l/min LVOT CI 3.8 l/min/m2 Pulmonic Valve Name Value Normal
[2024-06-12] MEDS: CENTRAL LINE FLUSH 10 ML IV PUSH ×4 (00:56→20:12)
[2024-06-12] MEDS: HYDROcodone/acetaminophen (*CRX) 5-325 MG TABLET 1 TAB PO ×3 (01:00→20:13)
[2024-06-12 05:15] LABS: Mean Corpuscular HGB Conc 30.9 g/dl (32-36); Mean Corpuscular Hemoglobin 25.9 pg (26-34); Mean Corpuscular Volume 83.7 fl (80-100); Mean Platelet Volume 8.5 fl (7.4-10.4); Platelet Count Result 335 k/mm3 (150-375); Red Blood Count 2.63 M/mm3 (4.2-5.4); Red Cell Distribution Width 17.4 % (11.5-14.5); White Blood Count 21.5 K/mm3 (4.5-10.0)
[2024-06-12 05:29] LABS: Anion Gap 10 mmol/L (4-12); Blood Urea Nitrogen 17 mg/dL (7-17); Calcium 7.6 mg/dL (8.4-10.2); Carbon Dioxide 20 mmol/L (22-30); Chloride 98 mmol/L (98-107); Estimated CRCL calculation 80 ml/min; Estimated Glomerular Filt Rate > 60; Glucose 83 mg/dL (65-110); Magnesium 1.8 mg/dL (1.6-2.3); Phosphorus 2.2 mg/dL (2.5-4.5); Potassium 3.4 mmol/L (3.4-5.0); Sodium 128 mmol/L (137-145)
[2024-06-12] MEDS: MEROPENEM 1 GM/NS 100 ML 1 GM/100 ML BAG IVPB ×3 (06:15→22:14)
[2024-06-12 06:57] LABS: Hemoglobin 6.8 g/dL (12.0-15.0)
[2024-06-12 06:58] LABS: Band Neutrophils Percent 1 % (0-6); Lymphocytes Absolute Manual 0.64 K/mm3 (1.1-4.5); Metamyelocytes Percent 4 %; Monocytes Absolute Manual 0.64 K/mm3 (0.1-0.90); Monocytes Percent Manual 3 % (3-9); Neutrophils Absolute Manual 19.35 K/mm3 (1.7-7.2); Neutrophils Percent Manual 89 % (46-73); Platelet Estimate Adequate (Adequate); Schistocytes None Seen; Total Cells Counted 100
[2024-06-12 06:59] LABS: Anisocytosis 1+; Hypochromasia 2+
[2024-06-12 08:03] LABS: Basophils Absolute Auto 0.1 K/mm3 (0.0-0.1); Basophils Percent Auto 0.3 % (0.2-1.2); Hematocrit 28.1 % (37.0-47.0); Hemoglobin 8.4 g/dL (12.0-15.0); Immature Granulocyte Percent A 7.5 % (0-0.5); Lymphocytes Absolute Auto 0.96 K/mm3 (0.9-3.2); Lymphocytes Percent Auto 3.6 % (18.3-44.2); Mean Corpuscular HGB Conc 29.9 g/dl (32-36); Mean Corpuscular Hemoglobin 25.3 pg (26-34); Mean Corpuscular Volume 84.6 fl (80-100); Mean Platelet Volume 8.9 fl (7.4-10.4); Monocytes Absolute Auto 1.4 K/mm3 (0.1-0.6); Monocytes Percent Auto 5.3 % (2.6-8.5); Neutrophils Absolute Auto 22.3 K/mm3 (1.3-6.7); Neutrophils Percent Auto 83.3 % (45.5-73.1); Platelet Count Result 464 k/mm3 (150-375); Red Blood Count 3.32 M/mm3 (4.2-5.4); Red Cell Distribution Width 17.7 % (11.5-14.5); White Blood Count 26.7 K/mm3 (4.5-10.0)
[2024-06-12 08:09] LABS: Glucose Point of Care 78 mg/dl (65-105)
[2024-06-12] MEDS: FLUTICASONE/UMECLIDIN/VILANTER 100-62.5-25 MCG ELLIPTA 1 PUFF INHALATION (08:21)
[2024-06-12 08:23] LABS: Anisocytosis 1+; Platelet Estimate Adequate (Adequate); Schistocytes None Seen
--- NOTE | 2024-06-12 09:45 | WPDANESEPPF ---
Anes - Initial Pre Proc Eval Procedure: Operation Date: 06/12/24 15:30 Proposed Procedures p Esophagogastroduodenoscopy - Jerry Lockhart MD Date/Time: 06/12/24 09:45 Surgeon: Tony Loera MD Pre Op Diagnosis: n/v Patient Data Age: 74 Gender: F Height: 1.73 m Weight: 90 kg Last Vital Signs Temp 36.8 C 06/12/24 05:59 Pulse 87 06/12/24 08:24 Resp 20 06/12/24 08:24 BP 115/52 L 06/12/24 05:59 Pulse Ox 96 06/12/24 08:24 O2 Del Method Nasal Cannula 06/12/24 08:24 O2 Flow Rate 2 06/12/24 08:24 FiO2 28 06/11/24 20:00 Allergies Allergy/AdvReac Type Severity Reaction Status Date / Time pembrolizumab [From Keytruda] Allergy Severe Hives Verified 05/14/24 10:36 neomycin Allergy Intermediate Itching Verified 05/14/24 10:36 [From Neosporin ([id number])] polymyxin B Allergy Intermediate Itching Verified 05/14/24 10:36 [From Neosporin ([id number])] codeine Allergy Mild Hives Verified 05/14/24 10:36 diclofenac Allergy Mild HIVES Verified 05/14/24 10:36 tuberculin, purified protein Allergy Mild Swelling Verified 05/14/24 10:36 deriva adhesive tape AdvReac Intermediate Blister Verified 05/14/24 10:36 Contrast Media Allergy Mild Hives Uncoded 05/14/24 10:36 Home Medications Medication Instructions Recorded Confirmed Type ascorbate calcium (vitamin C) 500 500 mg PO DAILY 11/26/19 06/07/24 History mg tablet cholecalciferol (vitamin D3) 25 1,000 unit PO DAILY 11/26/19 06/07/24 History mcg (1,000 unit) capsule thiamine HCl (vitamin B1) 50 mg 50 mg PO DAILY 11/26/19 06/07/24 History tablet (Vitamin B-1) diltiazem HCl 240 mg capsule,24 240 mg PO BID 03/21/22 06/07/24 History hr,extended release tizanidine 4 mg tablet 4 mg PO Q8H PRN muscle spasticity 05/11/22 06/07/24 History apixaban 5 mg tablet (Eliquis) 5 mg PO BID 07/20/22 06/07/24 History mecobalamin (vitamin B12) 1,000 1,000 mcg PO DAILY 07/20/22 06/07/24 History mcg lozenges letrozole 2.5 mg tablet 2.5 mg PO DAILY 03/04/23 06/07/24 History hydrocodone 5 mg-acetaminophen 325 1 tablet PO Q4-6H PRN Pain 03/22/23 06/07/24 History mg tablet prochlorperazine maleate 10 mg 10 mg PO .PRN 03/22/23 06/07/24 History tablet triamcinolone acetonide 0.1 % 1 applic topical TID #30 grams 06/21/23 06/07/24 Rx topical cream pantoprazole 40 mg tablet,delayed See Rx Instructions .Route 10/22/23 06/07/24 Rx release .COMPLEX #180 tabs albuterol sulfate 90 mcg/actuation 1 puff inhalation Q4H PRN 01/01/24 06/07/24 Rx aerosol inhaler shortness of breath or wheezing #8.5 grams insulin aspart U-100 100 unit/mL 1 sliding scale dose subcut 04/27/24 06/07/24 History subcutaneous solution (Novolog USEASDIRECTD U-100 Insulin aspart) albuterol sulfate 2.5 mg/3 mL 2.5 mg (3 mL) inhalation QID PRN 04/29/24 06/07/24 Rx (0.083 %) solution for nebulization shortness of breath or wheezing #360 mL Trelegy Ellipta 100 mcg-62.5 1 inh inhalation Q24H 90 days #180 05/04/24 06/07/24 Rx mcg-25 mcg powder for inhalation ea (pzusyempuud-penwtrbdr-ogvyxlez) furosemide 20 mg tablet (Lasix) 20 mg PO QAM #20 tabs 05/05/24 06/07/24 Rx blood sugar diagnostic (Accu-Chek #200 ea 05/14/24 06/07/24 Rx Lacey Plus test strips) epinephrine 0.3 mg/0.3 mL 0.3 mg IM Q4H PRN Allergic Reaction 05/14/24 06/07/24 History injection, auto-injector (EpiPen 2-Fabián) empagliflozin 10 mg tablet 10 mg PO DAILY #90 tabs 05/21/24 06/07/24 Rx (Jardiance) hydrochlorothiazide 12.5 mg tablet 12.5 mg PO DAILY #90 tabs 06/01/24 06/07/24 Rx pravastatin 40 mg tablet See Rx Instructions .Route 06/01/24 06/07/24 Rx .COMPLEX #90 tabs sertraline 50 mg tablet See Rx Instructions .Route 06/01/24 06/07/24 Rx .COMPLEX #90 tabs fluconazole 150 mg tablet 150 mg PO ONCE #2 tabs 06/05/24 06/07/24 Rx roflumilast 500 mcg tablet 1 mcg PO DAILY 06/07/24 06/07/24 History Laboratory Tests 06/11/24 06/11/24 08
--- NOTE | 2024-06-12 09:47 | PHA.ABX.ID ---
Pharmacy ID Consult - Stewardship Interventions Type of Interventions: Other Pharmacy ID Note: Subjective Pharmacy was consulted by Eduard Rai regarding infectious diseases for Maine Ambriz. Maine Ambriz is a 74 year old F with concerns regarding leukocytosis. Background The patient is currently receiving meropenem and vancomycin (Day 3 of this course) and has recently finished a 5-day course of doxycycline. The patient's PMH includes potential pneumonia, esophagitis alongside lung cancer, 2L baseline O2, and T2DM. Additionally, WBC has shown some decrease from yesterday (32.4) to today (26.7), which may be a sign of some resolution. MRSA nares PCR, sputum cx, and UCX have not shown specific source of infection and blood cultures show NGTD. Microbiology 06/07/24 15:21 Blood Blood Culture - Preliminary 06/07/24 15:21 Blood Blood Culture - Preliminary 06/07/24 13:42 Sputum Sputum Culture - Final 06/07/24 02:10 Urine Clean Catch Urine Culture - Final Laboratory Tests 06/06/24 06/07/24 06/08/24 21:58 13:36 06:36 WBC 19.3 H 21.8 H Nasal MRSA (PCR) Not detected Ur L.pneumophila Ag Urine Pneumococcal Ag 06/09/24 06/10/24 06/10/24 05:33 05:26 08:59 WBC 27.4 H 29.0 H Nasal MRSA (PCR) Not detected Ur L.pneumophila Ag Urine Pneumococcal Ag 06/10/24 06/10/24 06/11/24 12:06 12:06 06:12 WBC 32.4 H Nasal MRSA (PCR) Ur L.pneumophila Ag Pending Urine Pneumococcal Ag Pending 06/12/24 07:57 WBC 26.7 H Nasal MRSA (PCR) Ur L.pneumophila Ag Urine Pneumococcal Ag Assessment/Recommendation/Discussion Spoke briefly with provider, currently on very broad-spectrum antibiotic therapy and has already received coverage for atypical pathogens, though those serologies are pending. Discussed that potentially a fungal source could be present given risk factors. If is of concern, then can consider ordering fungal antibody panel, fungitell [id number], and a galactomannan. Empiric fungal coverage may include micafungin, if appropriate, 100 mg IV daily given current esophagitis may be of a krish source. Thank you for the interesting consult. Jeremie Reese, PharmD Infectious Disease/Antimicrobial Stewardship Pharmacist 06/12/24; 0947 WBC 26.7 K/mm3 (4.5-10.0) H 06/12/24 07:57 Creatinine 0.60 mg/dL (0.7-1.0) L 06/12/24 05:09 Estim Creat Clear Calc 80 ml/min 06/12/24 05:09
[2024-06-12] MEDS: LACTATED RINGERS 1,000 ML 150 ML IV CONT (09:51)
[2024-06-12 09:52] LABS: Glucose Point of Care 80 mg/dl (65-105)
--- NOTE | 2024-06-12 10:06 | WPDGICN ---
Assessment and Plan Assessment and plan (1) Nausea and vomiting in adult: Code(s): R11.2 - Nausea with vomiting, unspecified Status: Acute Assessment and Plan: will proceed with egd to assess if ulcer, esophagitis, etc on iv protonix for now (2) Epigastric pain: Code(s): R10.13 - Epigastric pain Status: Acute Assessment and Plan: egd today (3) Pneumonia: Qualifiers: Pneumonia type: due to unspecified organism Laterality: unspecified laterality Lung location: unspecified part of lung Qualified Code(s): J18.9 - Pneumonia, unspecified organism Code(s): J18.9 - Pneumonia, unspecified organism Status: Acute Assessment and Plan: on abx she developed viral infection after chemo radiation treatment (4) Lung cancer: Qualifiers: Laterality: left Lung location: upper lobe of lung Qualified Code(s): C34.12 - Malignant neoplasm of upper lobe, left bronchus or lung Code(s): C34.90 - Malignant neoplasm of unspecified part of unspecified bronchus or lung Status: Acute Assessment and Plan: she is seeing oncologist GI Consult Note Consult date/time: 06/12/24 10:06 Reason for consult: n/v, epigastric pain HPI: Maine Ambriz is a 74 year old female with past medical history significant for 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 She was recently discharged from [facility] where she was admitted for hemoptysis mucus plugging atelectasis status post bronchoscopy. She was admitted 5 days ago with more nausea and vomiting than usual, she also has been experiencing epigastric pain for several day and lack of appetite- food does not taste right . Also treated for pneumonia/pneumonitis. Had EGD but years ago, using protonix at home. Review of Systems Constitutional: Constitutional: Reports weakness Eyes: Eyes: Denies blurry vision ENT: Denies nasal congestion Cardiovascular: Cardiovascular: Denies chest pain Respiratory: Respiratory: Reports cough Gastrointestinal: Gastrointestinal: Reports abdominal pain and Reports nausea Genitourinary: Genitourinary: Denies dysuria Musculoskeletal: Musculoskeletal: Denies neck pain Integumentary/Breasts: Skin/Breast: Denies rash Neurologic: Denies confusion Psychiatric: Psychiatric: Denies behavioral changes [facility] Past Medical History Medical History (Updated 06/12/24 @ 12:03 by Jerry Lockhart MD) Bronchiolitis Bronchitis Cat bite of ankle Cellulitis Cervical strain Chicken pox Chronic respiratory failure Colon polyp COPD (chronic obstructive pulmonary disease) Dysuria Environmental allergies Epigastric pain Essential hypertension Folliculitis Heartburn HLD (hyperlipidemia) Hoarseness of voice Hypercholesterolemia Kidney disease Left shoulder pain Leukocytosis Lumbar radiculopathy Lung cancer Nausea and vomiting in adult Non-cardiac chest pain Osteoarthritis Painful thyroid Poison deepa dermatitis Right hip pain Screening for endocrine disorder SOB (shortness of breath) Stage III squamous cell carcinoma of lung Strain of wrist, right Swelling of thigh TB (tuberculosis), treated Thyroid disease UTI (urinary tract infection) UTI (urinary tract infection) Whooping cough treated Surgical History Surgical History H/O prior ablation treatment Ventricular tachycardia ablation History of cholecystectomy History of hysterectomy History of knee surgery History of lung biopsy History of tonsillectomy and adenoidectomy Family History Family History Sibling Family history of lung cancer Hypertension Father Lung
[2024-06-12 10:26] LABS: Glucose Point of Care 72 mg/dl (65-105)
[2024-06-12] MEDS: PANTOPRAZOLE SODIUM IV 40 MG VIAL IV PUSH ×2 (10:54→20:12)
[2024-06-12] MEDS: VANCOMYCIN 1,750 MG/NS 500 ML 1,750 MG/500 ML BAG 250 MG IVPB ×2 (10:54→22:20)
[2024-06-12] MEDS: FUROSEMIDE 20 MG TABLET PO (10:57)
[2024-06-12] MEDS: ROFLUMILAST 500 MCG TABLET PO (10:57)
[2024-06-12] MEDS: LETROZOLE (*CHEMO) 2.5 MG TABLET PO (10:58)
[2024-06-12] MEDS: dilTIAZem HCL CD 240 MG CAP.24HR PO ×2 (10:58→20:11)
[2024-06-12] MEDS: PRAVASTATIN SODIUM 20 MG TABLET BY MOUTH (10:58)
[2024-06-12] MEDS: SERTRALINE HCL 50 MG TABLET BY MOUTH (10:58)
[2024-06-12 11:59] LABS: Glucose Point of Care 139 mg/dl (65-105)
--- NOTE | 2024-06-12 12:46 | PM.IMPN ---
Progress Note: A&P Assessment and Plan (1) Pneumonia: Qualifiers: Pneumonia type: due to unspecified organism Laterality: unspecified laterality Lung location: unspecified part of lung Qualified Code(s): J18.9 - Pneumonia, unspecified organism Code(s): J18.9 - Pneumonia, unspecified organism Status: Acute Assessment and Plan: Patient presents with nausea and vomiting. White count was elevated on admission. Chest x-ray shows worsened airspace opacities with volume loss in the left apex likely radiation pneumonitis. MRSA nasal swab was negative Uptrend WBC 21 -> 32.4 Denies any fever chills or cough. No diarrhea. Treated with cefepime and doxycycline but WBC was climbing. Urine culture negative. Sputum culture negative. Blood cultures no growth to date CT Ch/A/P showing complete collapse of left lung upper lobe with small loculated left pleural effusion, mild pulmonary edema, radiation fibrosis involving the perihilar regions but no evidence of metastatic disease. CRP 19. Antibiotics changed to meropenem and vancomycin on 06/10 WBC was up to 32.4K but better today at 26K. PNA? Echo pending Continue current abx for now. (2) Gastritis: Code(s): K29.70 - Gastritis, unspecified, without bleeding Status: Acute Assessment and Plan: Worsening Abd pain with nausea and vomiting 06/11. She states she has had these symptoms since admission with little benefit. She was on prednisone prior to admission but was not on her home med list on admission so not continued here. She has been on Protonix BID since admission. She was complaining of epigastric pain. CT Abd/pelvis without contrast 06/10 showing no acute findings. No odynophagia or dysphagia. No oral lesions. Tums and mylanta added. Change Protonix to IV. GI consulted and patient went for an EGD showing severe gastritis in the body and antrum described as severe erythematous and edematous changes but no ulcers. Biopsies were taken. Esophagus and duodenum were normal in appearance. Continue Protonix IV. Continue Zofran as needed. Miralax for constipation with benefit. She requests this be changed to prn (3) Leukocytosis: Code(s): D72.829 - Elevated white blood cell count, unspecified Status: Acute Assessment and Plan: Patient has past medical history of leukocytosis although unclear on extent of this. White count at time of discharge from prior hospital was 16K. She was on steroids at last discharge but not on steroids on admission As above (4) Lung cancer: Qualifiers: Laterality: left Lung location: upper lobe of lung Qualified Code(s): C34.12 - Malignant neoplasm of upper lobe, left bronchus or lung Code(s): C34.90 - Malignant neoplasm of unspecified part of unspecified bronchus or lung Status: Acute Assessment and Plan: Patient on treatment. Discussed the case with patient's oncology nurse 06/10. Patient was on a prednisone taper at time of discharge on June 04 and should have have been down to about 5 mg but not on Prednisone on admission The working diagnosis of the patient's lung findings were either radiation pneumonitis or lymphangitic spread of her cancer. The lung biopsy did show active cancer. Follow-up with outpatient Dr Alarcon [facility] for continued treatment. Called [facility] ( for Dr Alarcon) again 06/11 and left message (5) Chronic respiratory failure: Code(s): J96.10 - Chronic respiratory failure, unspecified whether with hypoxia or hypercapnia Status: Acute Assessment and Plan: Patient has chronic hypoxemic respiratory failure on 2 L oxygen at baseline. She remains on 2 liters oxygen Follow (6) Diabetes mellitus: Code(s): E11.9 - Type 2 diabetes mellitus without complications Status: Acute Assessment and Plan: The patient's blood glucose was reviewed on 06/12 Glucose remains well controlled. Continue
[2024-06-12] MEDS: POTASSIUM/PHOSPHORUS/SODIUM 1.5 GM PACKET 1 PACKET PO (15:49)
[2024-06-12] MEDS: ONDANSETRON INJ 4 MG/2 ML VIAL IV PUSH (16:45)
[2024-06-12 17:07] LABS: Glucose Point of Care 93 mg/dl (65-105)
[2024-06-12] MEDS: ALBUMIN HUMAN 25% 25 GM/100 ML 100 ML IVPB (18:39)
[2024-06-12 19:57] LABS: Glucose Point of Care 158 mg/dl (65-105)
[2024-06-12] MEDS: FUROSEMIDE INJ 40 MG/4 ML VIAL 20 MG IV PUSH (20:11)
[2024-06-12] MEDS: MICONAZOLE NITRATE 2% VAGINAL CREAM 45 GM TUBE 1 APPFUL VAGINAL (20:12)
[2024-06-12] MEDS: TIZANIDINE HCL 4 MG TABLET PO (20:13)
[2024-06-12] MEDS: SODIUM CHLORIDE 0.9% IV 250 ML 20 ML (22:14)
[2024-06-12] MEDS: POTASSIUM CHLORIDE 20 MEQ ER TABLET 40 MEQ PO (22:25)
[2024-06-12] MEDS: ALBUTEROL SULFATE NEB 2.5 MG/3 ML INH INHALATION (23:07)
[2024-06-13] VITALS (20 sets, daily range): BP systolic 112–135; BP diastolic 42–70; PULSE 76–95; RESP 16–24; TEMP 36.3–37.7; O2SAT 93–99
[2024-06-13] MEDS: ALBUMIN HUMAN 25% 25 GM/100 ML 100 ML IVPB ×2 (00:20→11:58)
[2024-06-13] MEDS: HYDROcodone/acetaminophen (*CRX) 5-325 MG TABLET 1 TAB PO ×4 (00:59→20:23)
[2024-06-13 05:47] LABS: Basophils Absolute Auto 0.1 K/mm3 (0.0-0.1); Basophils Percent Auto 0.3 % (0.2-1.2); Hematocrit 24.5 % (37.0-47.0); Hemoglobin 7.4 g/dL (12.0-15.0); Immature Granulocyte Absolute 1.24 K/mm3 (0.00-0.031); Immature Granulocyte Percent A 5.2 % (0-0.5); Lymphocytes Percent Auto 3.4 % (18.3-44.2); Mean Corpuscular HGB Conc 30.2 g/dl (32-36); Mean Corpuscular Hemoglobin 25.2 pg (26-34); Mean Corpuscular Volume 83.3 fl (80-100); Mean Platelet Volume 8.7 fl (7.4-10.4); Monocytes Absolute Auto 1.2 K/mm3 (0.1-0.6); Neutrophils Absolute Auto 20.5 K/mm3 (1.3-6.7); Neutrophils Percent Auto 86.1 % (45.5-73.1); Platelet Count Result 409 k/mm3 (150-375); Red Blood Count 2.94 M/mm3 (4.2-5.4); White Blood Count 23.7 K/mm3 (4.5-10.0)
[2024-06-13 05:58] LABS: Alanine Aminotransferase 21 U/L (6-35); Albumin Level 2.9 g/dL (3.5-5.1); Alkaline Phosphatase 92 U/L (38-126); Anion Gap 9 mmol/L (4-12); Aspartate Amino Transferase 28 U/L (14-36); Bilirubin,Total 0.4 mg/dL (0.2-1.3); Blood Urea Nitrogen 18 mg/dL (7-17); Calcium 7.7 mg/dL (8.4-10.2); Carbon Dioxide 25 mmol/L (22-30); Chloride 95 mmol/L (98-107); Estimated CRCL calculation 69 ml/min; Estimated Glomerular Filt Rate > 60; Glucose 143 mg/dL (65-110); Magnesium 1.7 mg/dL (1.6-2.3); Phosphorus 1.9 mg/dL (2.5-4.5); Potassium 3.2 mmol/L (3.4-5.0); Sodium 129 mmol/L (137-145)
[2024-06-13] MEDS: CENTRAL LINE FLUSH 10 ML IV PUSH ×3 (06:01→21:23)
[2024-06-13] MEDS: TIZANIDINE HCL 4 MG TABLET PO ×2 (06:01→21:23)
[2024-06-13] MEDS: MEROPENEM 1 GM/NS 100 ML 1 GM/100 ML BAG IVPB ×3 (06:01→21:23)
[2024-06-13 07:33] LABS: Anisocytosis 1+; Hypochromasia 1+; Platelet Estimate Slightly Increased (Adequate); Polychromasia 1+; Schistocytes None Seen
--- NOTE | 2024-06-13 07:37 | WPDANESPN ---
Anes - Prog Note Post-Op Date/Time: 06/13/24 07:37 Cardiovascular status: normal Respiratory status: normal Airway patency: baseline Mental status: baseline Post-Op hydration status: normal Vital Signs: Last Vital Signs Temp 36.3 C L 06/13/24 05:45 Pulse 88 06/13/24 05:45 Resp 16 06/13/24 05:45 BP 120/58 L 06/13/24 05:45 Pulse Ox 97 06/13/24 05:45 O2 Del Method Nasal Cannula 06/12/24 20:00 O2 Flow Rate 2 06/12/24 20:00 FiO2 28 06/12/24 20:00 Pain Score (VAS): 2 I/O: Intake & Output 06/12/24 06/12/24 06/13/24 15:59 23:59 07:59 Intake Total 950 440 220 Output Total 750 Balance 950 440 -530 Laboratory Tests 06/13/24 05:38 06/13/24 05:38 06/12/24 06/12/24 06/12/24 07:57 08:05 09:49 WBC 26.7 H RBC 3.32 L Hgb 8.4 L Hct 28.1 L MCV 84.6 MCH 25.3 L MCHC 29.9 L RDW 17.7 H Plt Count 464 H MPV 8.9 Immature Gran % (Auto) 7.5 H Neut % (Auto) 83.3 H Lymph % (Auto) 3.6 L Harlan % (Auto) 5.3 Eos % (Auto) 0.0 Baso % (Auto) 0.3 Lymph # (Auto) 0.96 Harlan # (Auto) 1.4 H Eos # (Auto) 0.0 Baso # (Auto) 0.1 Abs Immat Gran (auto) 2.00 H Absolute Neuts (auto) 22.3 H Absolute Nucleated RBC 0.000 Nucleated RBC % 0.0 Platelet Estimate Adequate Polychromasia Hypochromasia Anisocytosis 1+ Schistocytes None seen Sodium Potassium Chloride Carbon Dioxide Anion Gap BUN Creatinine Estim Creat Clear Calc Estimated GFR Glucose POC Capillary Glucose 78 80 Calcium Phosphorus Magnesium Total Bilirubin AST ALT Alkaline Phosphatase Total Protein Albumin 06/12/24 06/12/24 06/12/24 10:24 11:40 16:55 WBC RBC Hgb Hct MCV MCH MCHC RDW Plt Count MPV Immature Gran % (Auto) Neut % (Auto) Lymph % (Auto) Harlan % (Auto) Eos % (Auto) Baso % (Auto) Lymph # (Auto) Harlan # (Auto) Eos # (Auto) Baso # (Auto) Abs Immat Gran (auto) Absolute Neuts (auto) Absolute Nucleated RBC Nucleated RBC % Platelet Estimate Polychromasia Hypochromasia Anisocytosis Schistocytes Sodium Potassium Chloride Carbon Dioxide Anion Gap BUN Creatinine Estim Creat Clear Calc Estimated GFR Glucose POC Capillary Glucose 72 139 H 93 Calcium Phosphorus Magnesium Total Bilirubin AST ALT Alkaline Phosphatase Total Protein Albumin 06/12/24 06/13/24 19:55 05:38 WBC 23.7 H RBC 2.94 L Hgb 7.4 L Hct 24.5 L MCV 83.3 MCH 25.2 L MCHC 30.2 L RDW 18.0 H Plt Count 409 H MPV 8.7 Immature Gran % (Auto) 5.2 H Neut % (Auto) 86.1 H Lymph % (Auto) 3.4 L Harlan % (Auto) 5.0 Eos % (Auto) 0.0 Baso % (Auto) 0.3 Lymph # (Auto) 0.80 L Harlan # (Auto) 1.2 H Eos # (Auto) 0.0 Baso # (Auto) 0.1 Abs Immat Gran (auto) 1.24 H Absolute Neuts (auto) 20.5 H Absolute Nucleated RBC 0.000 Nucleated RBC % 0.0 Platelet Estimate Slightly increased Polychromasia 1+ Hypochromasia 1+ Anisocytosis 1+ Schistocytes None seen Sodium 129 L Potassium 3.2 L Chloride 95 L Carbon Dioxide 25 Anion Gap 9 BUN 18 H Creatinine 0.70 Estim Creat Clear Calc 69 Estimated GFR > 60 Glucose 143 H POC Capillary Glucose 158 H Calcium 7.7 L Phosphorus 1.9 L Magnesium 1.7 Total Bilirubin 0.4 AST 28 ALT 21 Alkaline Phosphatase 92 Total Protein 6.0 L Albumin 2.9 L Post-procedural complaints: none Patient Feedback: Patient satisfied with anesthetic care.
[2024-06-13 07:44] LABS: Glucose Point of Care 157 mg/dl (65-105)
[2024-06-13] MEDS: FLUTICASONE/UMECLIDIN/VILANTER 100-62.5-25 MCG ELLIPTA 1 PUFF INHALATION (07:45)
[2024-06-13] MEDS: MAGNESIUM SULF 2 GM/WATER 50ML 2 GM/50 ML BAG IVPB (09:25)
[2024-06-13] MEDS: PANTOPRAZOLE SODIUM IV 40 MG VIAL IV PUSH ×2 (09:25→21:21)
[2024-06-13] MEDS: LETROZOLE (*CHEMO) 2.5 MG TABLET PO (09:26)
[2024-06-13] MEDS: POTASSIUM/PHOSPHORUS/SODIUM 1.5 GM PACKET 1 PACKET PO (09:26)
[2024-06-13] MEDS: FUROSEMIDE 20 MG TABLET PO (09:26)
[2024-06-13] MEDS: PRAVASTATIN SODIUM 20 MG TABLET BY MOUTH (09:28)
[2024-06-13] MEDS: dilTIAZem HCL CD 240 MG CAP.24HR PO ×2 (09:28→21:23)
[2024-06-13] MEDS: ROFLUMILAST 500 MCG TABLET PO (09:28)
[2024-06-13] MEDS: SERTRALINE HCL 50 MG TABLET BY MOUTH (09:28)
[2024-06-13] MEDS: POTASSIUM CHLORIDE 20 MEQ ER TABLET PO (09:28)
[2024-06-13] MEDS: FUROSEMIDE INJ 40 MG/4 ML VIAL IV PUSH (10:00)
--- NOTE | 2024-06-13 10:12 | PM.IMPN ---
Progress Note: A&P Assessment and Plan (1) Pneumonia: Qualifiers: Pneumonia type: due to unspecified organism Laterality: unspecified laterality Lung location: unspecified part of lung Qualified Code(s): J18.9 - Pneumonia, unspecified organism Code(s): J18.9 - Pneumonia, unspecified organism Status: Acute Assessment and Plan: Patient presents with nausea and vomiting. White count was elevated on admission. Chest x-ray shows worsened airspace opacities with volume loss in the left apex likely radiation pneumonitis. MRSA nasal swab was negative Uptrend WBC 21 -> 32.4 Denies any fever chills or cough. No diarrhea. Treated with cefepime and doxycycline but WBC was climbing. Urine culture negative. Sputum culture negative. Blood cultures no growth to date CT Ch/A/P (06/10) showing complete collapse of left lung upper lobe with small loculated left pleural effusion, mild pulmonary edema, radiation fibrosis involving the perihilar regions but no evidence of metastatic disease. CRP 19. Antibiotics changed to meropenem and vancomycin on 06/10 WBC was up to 32.4K but better today at 23.7K. Echo showing EF 65-70%, mild concentric LV wall thickness, Grade I diastolic dysfunction, and mild valvular disease. Suspect she has MDRO causing PNA. Continue current abx for now. (2) Hyponatremia: Code(s): E87.1 - Hypo-osmolality and hyponatremia Status: Acute Assessment and Plan: Hyponatremia with Na 129 today and stable Cortisol elevated at 31 and TSH normal. Urine Na 19, UCr 50.5. FENA 1.7%. FEUrea 33%. Probably dehydration as etiology of low sodium but noted to have pedal edema and mild pulm edema by CT. Probably related to low albumin. Albumin x 4 doses Edema worse. Doubt DVT since bilateral and pain is anterior. Lasix IV once. Probably will need scheduled doses. Follow for now. (3) Anemia: Code(s): D64.9 - Anemia, unspecified Status: Acute Assessment and Plan: Hgb low on admission at 8.6 and has been stable in the 7-8 range. Iron 16 with low TIBC and TSat 8%. Ferritin 98. Hgb 6.8 yesterday morning but felt to be lab error. Resume Eliquis (held for EGD). Check B12/foalte Monitor HH closely. May improve with diuresis. IV iron for 3 doses. (4) Gastritis: Code(s): K29.70 - Gastritis, unspecified, without bleeding Status: Acute Assessment and Plan: Worsening abd pain with nausea and vomiting 06/11. She states she has had these symptoms since admission with little benefit. She was on prednisone prior to admission but was not on her home med list on admission so not continued here. She has been on Protonix BID since admission. She was complaining of epigastric pain. CT Abd/pelvis without contrast 06/10 showing no acute findings. No odynophagia or dysphagia. No oral lesions. Tums and mylanta added. Change Protonix to IV. GI consulted and patient went for an EGD 06/12 showing severe gastritis in the body and antrum described as severe erythematous and edematous changes but no ulcers. Biopsies were taken. Esophagus and duodenum were normal in appearance. Symptoms better and she is eating. Appetite improved as well Continue Protonix IV. Continue Zofran as needed. Miralax for constipation with benefit. She requests this be changed to prn which was done (5) Leukocytosis: Code(s): D72.829 - Elevated white blood cell count, unspecified Status: Acute Assessment and Plan: Patient has past medical history of leukocytosis although unclear on extent of this. White count at time of discharge from prior hospital was 16K. She was on steroids at last discharge but not on steroids on admission As above (6) Lung cancer: Qualifiers: Laterality: left Lung location: upper lobe of lung Qualified Code(s): C34.12 - Malignant neoplasm of upper lobe, left bronchus or lung Code(s): C34.90 - Malignant neoplasm of unspecified part o
[2024-06-13] MEDS: ALBUTEROL SULFATE NEB 2.5 MG/3 ML INH INHALATION ×2 (10:30→21:08)
[2024-06-13] MEDS: IRON SUCROSE COMPLEX 100 MG in SODIUM CHLORIDE 0.9% IV 50 ML 220 MG IVPB (11:25)
[2024-06-13 11:52] LABS: Glucose Point of Care 163 mg/dl (65-105)
--- NOTE | 2024-06-13 12:36 | WPDGIPROGNO ---
Progress Note: A&P Assessment and Plan (1) Gastritis: Code(s): K29.70 - Gastritis, unspecified, without bleeding Status: Acute Assessment and Plan: continue with protonix tolerating diet and better pending biopsies (2) Epigastric pain: Code(s): R10.13 - Epigastric pain Status: Acute (3) Nausea and vomiting in adult: Code(s): R11.2 - Nausea with vomiting, unspecified Status: Acute Assessment and Plan: improving, eating more (4) Lung cancer: Qualifiers: Laterality: left Lung location: upper lobe of lung Qualified Code(s): C34.12 - Malignant neoplasm of upper lobe, left bronchus or lung Code(s): C34.90 - Malignant neoplasm of unspecified part of unspecified bronchus or lung Status: Acute (5) Chronic respiratory failure: Code(s): J96.10 - Chronic respiratory failure, unspecified whether with hypoxia or hypercapnia Status: Acute Subjective Date/time seen: 06/13/24 12:36 Interval history: no more nausea, better since admission egd yesterday with severe gastritis Review of Systems Review of Systems: All systems reviewed & are unremarkable except as noted in HPI and below Exam Narrative: Gen - NARD neck- supple HEENT- normal nare Chest - clear anteriorly and in flanks CV - RRR S1/S2 +murmur Abd - Soft, NT/ND. Positive bowel sounds. Ext - 1+ pedal edema Psych - Nml mood and affect Skin - Warm and dry neuro: awake and alert, no deficits Objective Data Vital Signs Vital Signs: Vital Signs - 24 hr 06/12/24 16:45 06/12/24 16:00 06/12/24 20:46 Temperature 98.4 F 97.3 F L Pulse Rate 94 90 89 Respiratory Rate 20 18 Blood Pressure 113/46 L 107/51 L Pulse Oximetry 97 100 Oxygen Delivery Oxygen Flow Rate Fraction of Inspired Oxygen 06/12/24 20:00 06/12/24 23:08 06/12/24 23:20 Temperature Pulse Rate 89 96 92 Respiratory Rate 18 20 20 Blood Pressure Pulse Oximetry 100 Oxygen Delivery Nasal Cannula Oxygen Flow Rate 2 Fraction of Inspired Oxygen 28 06/13/24 05:45 06/12/24 20:00 06/13/24 00:00 Temperature 97.4 F L Pulse Rate 88 87 78 Respiratory Rate 16 Blood Pressure 120/58 L Pulse Oximetry 97 Oxygen Delivery Oxygen Flow Rate Fraction of Inspired Oxygen 06/13/24 04:00 06/13/24 07:45 06/13/24 07:45 Temperature Pulse Rate 92 78 78 Respiratory Rate 18 18 Blood Pressure Pulse Oximetry 96 Oxygen Delivery Nasal Cannula Oxygen Flow Rate 2 Fraction of Inspired Oxygen 06/13/24 09:40 06/13/24 10:30 06/13/24 10:40 Temperature Pulse Rate 78 81 83 Respiratory Rate 18 18 Blood Pressure Pulse Oximetry Oxygen Delivery Oxygen Flow Rate Fraction of Inspired Oxygen Intake/Output Intake/Output: Intake & Output 06/10/24 06/11/24 06/12/24 06/13/24 23:59 23:59 23:59 23:59 Intake Total 2760 2152 2110 420 Output Total 7928 496 6842 Balance 2760 702 2009 Meds/Results Medications: Active Medications Generic Name Dose Route Start Last Admin Trade Name Freq PRN Reason Stop Dose Admin Hydrocodone Bitart/Acetaminophen 1 tab 06/07/24 04:44 06/13/24 09:34 Hydrocodone/Acetaminophen (*Crx) 5-325 Mg Tablet PO 1 tab Q4-6H PRN Administration Pain Al Hydrox/Mg Hydrox/Simethicone 30 ml 06/11/24 18:14 06/11/24 20:45 Mag Hydrox/Al Hydrox/Simeth 30 Ml Udc PO 30 ml Q6H PRN Administration Indigestion Albuterol 2.5 mg 06/07/24 04:44 06/13/24 10:30 Albuterol Sulfate Neb 2.5 Mg/3 Ml Inh INHALATION 2.5 mg QID PRN Administration wheezing Albuterol 2 puff 06/07/24 04:44 Albuterol Sulfate (*Sp) Aerosol 1 Puff INHALATION Q4H PRN shortness of breath Apixaban 5 mg 06/07/24 09:00 06/11/24 20:43 Apixaban 5 Mg Tablet PO 5 mg Q12HR BEN Administration Benzocaine 1 lozenge 06/07/24 14:54 Benzocaine/Menthol (*Bkc) 18 Ea Lozenge PO PRN PRN
[2024-06-13 12:41] LABS: Magnesium 2.4 mg/dL (1.6-2.3); Potassium 2.9 mmol/L (3.4-5.0)
[2024-06-13 12:46] LABS: Hemoglobin A1C 7.1 % (<5.7); Vancomycin Trough 21.6 ug/mL (10.0-20.0)
[2024-06-13 13:18] LABS: Hematocrit 22.1 % (37.0-47.0)
[2024-06-13 13:21] LABS: Hemoglobin 6.7 g/dL (12.0-15.0)
[2024-06-13 13:49] LABS: Folic Acid 13.5 ng/mL (2.76->20); Vitamin B12 > 1000.0 pg/mL (239-931)
[2024-06-13 14:50] LABS: Creatinine Urine 12.6 mg/dL; Total Protein Urine Random 16 mg/dL; Ur Ttl Prot Creatinine Ratio 1.27 mg/mg (0-0.20)
[2024-06-13] MEDS: POTASSIUM CHLORIDE 20 MEQ ER TABLET 40 MEQ PO (16:34)
[2024-06-13] MEDS: CALCIUM CARBONATE (TUMS) 500 MG (200 MG ELEMENTAL) PO (16:55)
[2024-06-13] MEDS: VANCOMYCIN 1,500 MG/NS 500 ML 1,500 MG/500 ML BAG 250 MG IVPB (17:26)
[2024-06-13] MEDS: ONDANSETRON INJ 4 MG/2 ML VIAL IV PUSH (17:30)
[2024-06-13 20:31] LABS: Glucose Point of Care 116 mg/dl (65-105)
[2024-06-13] MEDS: MAG HYDROX/AL HYDROX/SIMETH 30 ML UDC PO (21:21)
[2024-06-13] MEDS: SODIUM CHLORIDE 0.9% IV 250 ML 20 ML (21:21)
[2024-06-13] MEDS: APIXABAN 5 MG TABLET PO (21:22)
[2024-06-13] MEDS: SUCRALFATE 1 GM TABLET PO (21:22)
[2024-06-13] MEDS: MICONAZOLE NITRATE 2% VAGINAL CREAM 45 GM TUBE 1 APPFUL VAGINAL (21:24)
[2024-06-13 23:42] LABS: Hemoglobin 7.9 g/dL (12.0-15.0)
[2024-06-14] VITALS (14 sets, daily range): BP systolic 104–126; BP diastolic 50–54; PULSE 68–97; RESP 18–20; TEMP 36.8–37.2; O2SAT 96–98
[2024-06-14] MEDS: HYDROcodone/acetaminophen (*CRX) 5-325 MG TABLET 1 TAB PO ×3 (00:23→22:31)
[2024-06-14] MEDS: ALBUTEROL SULFATE NEB 2.5 MG/3 ML INH INHALATION ×3 (03:54→15:59)
[2024-06-14] MEDS: VANCOMYCIN 1,500 MG/NS 500 ML 1,500 MG/500 ML BAG 250 MG IVPB ×2 (05:24→18:20)
[2024-06-14] MEDS: CENTRAL LINE FLUSH 10 ML IV PUSH ×3 (05:24→21:29)
[2024-06-14] MEDS: SUCRALFATE 1 GM TABLET PO ×3 (05:24→17:35)
[2024-06-14] MEDS: MEROPENEM 1 GM/NS 100 ML 1 GM/100 ML BAG IVPB ×3 (05:24→21:27)
[2024-06-14 06:39] LABS: Basophils Percent Auto 0.2 % (0.2-1.2); Eosinophils Percent Auto 0.1 % (0-4.4); Hematocrit 27.3 % (37.0-47.0); Hemoglobin 8.3 g/dL (12.0-15.0); Immature Granulocyte Absolute 0.77 K/mm3 (0.00-0.031); Immature Granulocyte Percent A 4.3 % (0-0.5); Lymphocytes Absolute Auto 0.68 K/mm3 (0.9-3.2); Lymphocytes Percent Auto 3.8 % (18.3-44.2); Mean Corpuscular HGB Conc 30.4 g/dl (32-36); Mean Corpuscular Hemoglobin 25.5 pg (26-34); Mean Platelet Volume 9.2 fl (7.4-10.4); Monocytes Percent Auto 5.4 % (2.6-8.5); Neutrophils Absolute Auto 15.3 K/mm3 (1.3-6.7); Neutrophils Percent Auto 86.2 % (45.5-73.1); Platelet Count Result 379 k/mm3 (150-375); Red Blood Count 3.25 M/mm3 (4.2-5.4); Red Cell Distribution Width 17.4 % (11.5-14.5); White Blood Count 17.8 K/mm3 (4.5-10.0)
[2024-06-14 07:03] LABS: Albumin Level 2.7 g/dL (3.5-5.1); Anion Gap 9 mmol/L (4-12); Blood Urea Nitrogen 18 mg/dL (7-17); Calcium 7.8 mg/dL (8.4-10.2); Carbon Dioxide 26 mmol/L (22-30); Chloride 97 mmol/L (98-107); Estimated CRCL calculation 61 ml/min; Estimated Glomerular Filt Rate > 60; Glucose 126 mg/dL (65-110); Phosphorus 1.9 mg/dL (2.5-4.5); Potassium 3.2 mmol/L (3.4-5.0); Sodium 132 mmol/L (137-145)
[2024-06-14] MEDS: FLUTICASONE/UMECLIDIN/VILANTER 100-62.5-25 MCG ELLIPTA 1 PUFF INHALATION (07:11)
[2024-06-14 08:10] LABS: Glucose Point of Care 119 mg/dl (65-105)
[2024-06-14 08:34] LABS: Anisocytosis 1+; Hypochromasia 1+; Platelet Estimate Adequate (Adequate)
[2024-06-14 08:35] LABS: Poikilocytosis 1+; Schistocytes None Seen
[2024-06-14] MEDS: dilTIAZem HCL CD 240 MG CAP.24HR PO ×2 (09:11→22:30)
[2024-06-14] MEDS: ROFLUMILAST 500 MCG TABLET PO (09:11)
[2024-06-14] MEDS: PANTOPRAZOLE SODIUM IV 40 MG VIAL IV PUSH ×2 (09:11→21:27)
[2024-06-14] MEDS: PRAVASTATIN SODIUM 20 MG TABLET BY MOUTH (09:11)
[2024-06-14] MEDS: LETROZOLE (*CHEMO) 2.5 MG TABLET PO (09:11)
[2024-06-14] MEDS: SERTRALINE HCL 50 MG TABLET BY MOUTH (09:11)
[2024-06-14] MEDS: POTASSIUM CHLORIDE 20 MEQ ER TABLET PO (09:11)
[2024-06-14] MEDS: POTASSIUM/PHOSPHORUS/SODIUM 1.5 GM PACKET 1 PACKET PO ×2 (09:11→14:56)
[2024-06-14] MEDS: FUROSEMIDE 20 MG TABLET PO (09:11)
[2024-06-14] MEDS: IRON SUCROSE COMPLEX 100 MG in SODIUM CHLORIDE 0.9% IV 50 ML 220 MG IVPB (09:25)
--- NOTE | 2024-06-14 10:13 | PM.IMPN ---
Progress Note: A&P Assessment and Plan (1) Pneumonia: Qualifiers: Pneumonia type: due to unspecified organism Laterality: unspecified laterality Lung location: unspecified part of lung Qualified Code(s): J18.9 - Pneumonia, unspecified organism Code(s): J18.9 - Pneumonia, unspecified organism Status: Acute Assessment and Plan: Patient presents with nausea and vomiting. White count was elevated on admission. Chest x-ray shows worsened airspace opacities with volume loss in the left apex likely radiation pneumonitis. MRSA nasal swab was negative Uptrend WBC 21 -> 32.4 Denies any fever chills or cough. No diarrhea. Treated with cefepime and doxycycline but WBC was climbing. Urine culture negative. Sputum culture negative. Blood cultures no growth to date CT Ch/A/P (06/10) showing complete collapse of left lung upper lobe with small loculated left pleural effusion, mild pulmonary edema, radiation fibrosis involving the perihilar regions but no evidence of metastatic disease. CRP 19. Antibiotics changed to meropenem and vancomycin on 06/10 WBC was up to 32.4K but better today at 17.8K. Echo showing EF 65-70%, mild concentric LV wall thickness, Grade I diastolic dysfunction, and mild valvular disease. Suspect she has MDRO causing PNA. Continue current abx for now. (2) Hyponatremia: Code(s): E87.1 - Hypo-osmolality and hyponatremia Status: Acute Assessment and Plan: Hyponatremia with Na 129 today and stable Cortisol elevated at 31 and TSH normal. Urine Na 19, UCr 50.5. FENA 1.7%. FEUrea 33%. Probably dehydration as etiology of low sodium but noted to have pedal edema and mild pulm edema by CT. Probably leg edema related to low albumin. Completed Albumin x 4 doses. Lasix IV once and edema better. Continue home Lasix. Follow for now. (3) Anemia: Code(s): D64.9 - Anemia, unspecified Status: Acute Assessment and Plan: Hgb low on admission at 8.6 and has been stable in the 7-8 range. Iron 16 with low TIBC and TSat 8%. Ferritin 98. B12/Foalte normal. Hgb 6.8 but felt to be lab error since better on repeat. Hgb dropped again yeterday to 6.7 and she was transfused 1U PRBC. Hgb 8.3 today. Monitor HH closely. Continue IV iron daily for 3 doses. Hold Eliquis again until HH stable. (4) Gastritis: Code(s): K29.70 - Gastritis, unspecified, without bleeding Status: Acute Assessment and Plan: Worsening abd pain with nausea and vomiting 06/11. She states she has had these symptoms for a few weeks and has been worsening. She was on prednisone prior to admission but was not on her home med list on admission so not continued here. She has been on Protonix BID since admission. She was complaining of epigastric pain. CT Abd/pelvis without contrast 06/10 showing no acute findings. No odynophagia or dysphagia. No oral lesions. Tums and mylanta added. Changed Protonix to IV. GI consulted and patient went for an EGD 06/12 showing severe gastritis in the body and antrum described as severe erythematous and edematous changes but no ulcers. Biopsies were taken. Esophagus and duodenum were normal in appearance. Symptoms were better and she was eating but still having nausea/vomiting. Carafate added. Symptoms better today. Continue Protonix IV. Continue Zofran as needed. (5) Leukocytosis: Code(s): D72.829 - Elevated white blood cell count, unspecified Status: Acute Assessment and Plan: Patient has past medical history of leukocytosis although unclear on extent of this. White count at time of discharge from prior hospital was 16K. She was on steroids at last discharge but not on steroids on admission As above (6) Lung cancer: Qualifiers: Laterality: left Lung location: upper lobe of lung Qualified Code(s): C34.12 - Malignant neoplasm of upper lobe, left bronchus or lung Code(s): C34.90 - Malignant neoplasm of
[2024-06-14 12:15] LABS: Glucose Point of Care 135 mg/dl (65-105)
[2024-06-14] MEDS: ONDANSETRON INJ 4 MG/2 ML VIAL IV PUSH ×2 (12:30→21:27)
--- NOTE | 2024-06-14 13:55 | WPDGIPROGNO ---
Progress Note: A&P Assessment and Plan (1) Gastritis: Code(s): K29.70 - Gastritis, unspecified, without bleeding Status: Acute Assessment and Plan: continue with protonix tolerating diet and better pending biopsies will follow as needed (2) Epigastric pain: Code(s): R10.13 - Epigastric pain Status: Acute Assessment and Plan: resolved, she is comfortable now (3) Nausea and vomiting in adult: Code(s): R11.2 - Nausea with vomiting, unspecified Status: Acute Assessment and Plan: improved, eating more (4) Lung cancer: Qualifiers: Laterality: left Lung location: upper lobe of lung Qualified Code(s): C34.12 - Malignant neoplasm of upper lobe, left bronchus or lung Code(s): C34.90 - Malignant neoplasm of unspecified part of unspecified bronchus or lung Status: Acute (5) Chronic respiratory failure: Code(s): J96.10 - Chronic respiratory failure, unspecified whether with hypoxia or hypercapnia Status: Acute Subjective Date/time seen: 06/14/24 13:55 Interval history: no more nausea and doing better since admission Review of Systems Review of Systems: All systems reviewed & are unremarkable except as noted in HPI and below Exam Narrative: Gen - NARD neck- supple HEENT- normal nare Chest - clear anteriorly and in flanks CV - RRR S1/S2 +murmur Abd - Soft, NT/ND. Positive bowel sounds. Ext - 1+ pedal edema Psych - Nml mood and affect Skin - Warm and dry neuro: awake and alert, no deficits Objective Data Vital Signs Vital Signs: Vital Signs - 24 hr 06/13/24 16:02 06/13/24 17:21 06/13/24 16:00 Temperature 98.7 F 98.6 F Pulse Rate 95 93 95 Respiratory Rate 20 22 H Blood Pressure 112/45 L 117/45 L Pulse Oximetry 94 93 Oxygen Delivery Oxygen Flow Rate Fraction of Inspired Oxygen 06/13/24 17:36 06/13/24 18:36 06/13/24 19:36 Temperature 98.8 F 99.0 F 99.0 F Pulse Rate 92 92 89 Respiratory Rate 24 H 20 22 H Blood Pressure 112/42 L 121/46 L 116/46 L Pulse Oximetry 95 93 96 Oxygen Delivery Oxygen Flow Rate Fraction of Inspired Oxygen 06/13/24 20:36 06/13/24 21:10 06/13/24 21:11 Temperature 99.8 F H Pulse Rate 86 80 80 Respiratory Rate 18 18 18 Blood Pressure 116/53 L Pulse Oximetry 94 96 Oxygen Delivery Nasal Cannula Oxygen Flow Rate 2 Fraction of Inspired Oxygen 06/13/24 21:25 06/13/24 21:36 06/13/24 20:00 Temperature 99.8 F H 98.6 F Pulse Rate 86 89 89 Respiratory Rate 18 20 20 Blood Pressure 116/53 L 135/70 Pulse Oximetry 95 99 99 Oxygen Delivery Nasal Cannula Oxygen Flow Rate 2 Fraction of Inspired Oxygen 28 06/14/24 03:55 06/13/24 20:00 06/14/24 00:00 Temperature Pulse Rate 77 76 68 Respiratory Rate 18 Blood Pressure Pulse Oximetry Oxygen Delivery Oxygen Flow Rate Fraction of Inspired Oxygen 06/14/24 04:00 06/14/24 06:16 06/14/24 07:07 Temperature 98.3 F Pulse Rate 86 77 76 Respiratory Rate 20 18 Blood Pressure 104/52 L Pulse Oximetry 98 96 Oxygen Delivery Nasal Cannula Oxygen Flow Rate 2 Fraction of Inspired Oxygen 06/14/24 07:07 06/14/24 11:05 06/14/24 11:15 Temperature Pulse Rate 76 81 82 Respiratory Rate 18 18 18 Blood Pressure Pulse Oximetry Oxygen Delivery Oxygen Flow Rate Fraction of Inspired Oxygen Intake/Output Intake/Output: Intake & Output 06/11/24 06/12/24 06/13/24 06/14/24 23:59 23:59 23:59 23:59 Intake Total 2152 2110 1570 930 Output Total 0151 437 0680 250 Balance 702 2009 320 680 Meds/Results Medications: Active Medications Generic Name Dose Route Start Last Admin Trade Name Freq PRN Reason Stop Dose Admin Hydrocodone Bitart/Acetaminophen 1 tab 06/07/24 04:44 06/14/24 05:00 Hydrocodone/Acetaminophen (*Crx) 5-325 Mg Tablet PO 1 tab Q4-6H PRN Administration Pain Al Hydrox/Mg Hydrox/Simethicone 30 ml 05/28
[2024-06-14 16:54] LABS: Glucose Point of Care 134 mg/dl (65-105)
[2024-06-14 20:04] LABS: Glucose Point of Care 170 mg/dl (65-105)
[2024-06-14 21:06] LABS: Glucose Point of Care 142 mg/dl (65-105)
[2024-06-14 23:01] LABS: IFOB Positive Control Positive; Immunochemical Fecal Occult Bl Positive (N)
[2024-06-15] VITALS (16 sets, daily range): BP systolic 113–121; BP diastolic 49–62; PULSE 73–101; RESP 17–20; TEMP 36.4–36.9; O2SAT 91–100
[2024-06-15] MEDS: MAG HYDROX/AL HYDROX/SIMETH 30 ML UDC PO ×2 (02:21→17:30)
[2024-06-15] MEDS: TIZANIDINE HCL 4 MG TABLET PO ×2 (02:21→23:43)
[2024-06-15] MEDS: ONDANSETRON INJ 4 MG/2 ML VIAL IV PUSH ×3 (03:49→23:47)
[2024-06-15] MEDS: MEROPENEM 1 GM/NS 100 ML 1 GM/100 ML BAG IVPB ×3 (05:08→20:18)
[2024-06-15] MEDS: CENTRAL LINE FLUSH 10 ML IV PUSH ×2 (05:31→20:18)
[2024-06-15] MEDS: SUCRALFATE 1 GM TABLET PO ×4 (05:31→20:18)
[2024-06-15 06:15] LABS: Albumin Level 2.4 g/dL (3.5-5.1); Anion Gap 6 mmol/L (4-12); Blood Urea Nitrogen 18 mg/dL (7-17); Calcium 7.6 mg/dL (8.4-10.2); Carbon Dioxide 27 mmol/L (22-30); Chloride 98 mmol/L (98-107); Estimated CRCL calculation 61 ml/min; Estimated Glomerular Filt Rate > 60; Glucose 119 mg/dL (65-110); Phosphorus 1.9 mg/dL (2.5-4.5); Potassium 3.3 mmol/L (3.4-5.0); Sodium 131 mmol/L (137-145)
[2024-06-15 06:28] LABS: Basophils Percent Auto 0.2 % (0.2-1.2); Eosinophils Percent Auto 0.1 % (0-4.4); Hematocrit 27.5 % (37.0-47.0); Hemoglobin 8.3 g/dL (12.0-15.0); Immature Granulocyte Absolute 0.56 K/mm3 (0.00-0.031); Lymphocytes Absolute Auto 0.57 K/mm3 (0.9-3.2); Lymphocytes Percent Auto 3.1 % (18.3-44.2); Mean Corpuscular HGB Conc 30.2 g/dl (32-36); Mean Corpuscular Hemoglobin 25.2 pg (26-34); Mean Corpuscular Volume 83.6 fl (80-100); Mean Platelet Volume 8.8 fl (7.4-10.4); Monocytes Percent Auto 5.3 % (2.6-8.5); Neutrophils Absolute Auto 16.4 K/mm3 (1.3-6.7); Neutrophils Percent Auto 88.3 % (45.5-73.1); Platelet Count Result 388 k/mm3 (150-375); Red Blood Count 3.29 M/mm3 (4.2-5.4); White Blood Count 18.6 K/mm3 (4.5-10.0)
[2024-06-15 06:34] LABS: Vancomycin Trough 24.7 ug/mL (10.0-20.0)
[2024-06-15 07:56] LABS: Glucose Point of Care 129 mg/dl (65-105)
[2024-06-15] MEDS: ALBUTEROL SULFATE NEB 2.5 MG/3 ML INH INHALATION ×3 (08:23→20:28)
[2024-06-15] MEDS: FLUTICASONE/UMECLIDIN/VILANTER 100-62.5-25 MCG ELLIPTA 1 PUFF INHALATION (08:25)
[2024-06-15] MEDS: POTASSIUM/PHOSPHORUS/SODIUM 1.5 GM PACKET 1 PACKET PO ×4 (09:59→23:43)
[2024-06-15] MEDS: POTASSIUM CHLORIDE 20 MEQ ER TABLET 40 MEQ PO (10:00)
[2024-06-15] MEDS: FUROSEMIDE 20 MG TABLET PO (10:00)
[2024-06-15] MEDS: ROFLUMILAST 500 MCG TABLET PO (10:01)
[2024-06-15] MEDS: IRON SUCROSE COMPLEX 100 MG in SODIUM CHLORIDE 0.9% IV 50 ML 220 MG IVPB (10:01)
[2024-06-15] MEDS: LETROZOLE (*CHEMO) 2.5 MG TABLET PO (10:02)
[2024-06-15] MEDS: dilTIAZem HCL CD 240 MG CAP.24HR PO ×2 (10:02→20:18)
[2024-06-15] MEDS: PANTOPRAZOLE SODIUM IV 40 MG VIAL IV PUSH ×2 (10:02→20:17)
[2024-06-15] MEDS: PRAVASTATIN SODIUM 20 MG TABLET BY MOUTH (10:02)
[2024-06-15 11:40] LABS: Glucose Point of Care 114 mg/dl (65-105)
[2024-06-15] MEDS: HYDROcodone/acetaminophen (*CRX) 5-325 MG TABLET 1 TAB PO ×2 (13:31→23:43)
--- NOTE | 2024-06-15 13:32 | PHA.ABX.ID ---
Pharmacy ID Consult - Stewardship Interventions Type of Interventions: Duration Pharmacy ID Note: Patient receiving meropenem and vancomycin day 6 of course of these two antibiotics. WBC count initially started descending and has stagnated around 17-18K. Cultures not showing potential pathogen for targeted therapy. Microbiology 06/07/24 15:21 Blood Blood Culture - Final 06/07/24 15:21 Blood Blood Culture - Final 06/07/24 13:42 Sputum Sputum Culture - Final 06/07/24 02:10 Urine Clean Catch Urine Culture - Final Laboratory Tests 06/12/24 06/13/24 06/14/24 07:57 05:38 06:00 WBC 26.7 H 23.7 H 17.8 H 06/15/24 05:36 WBC 18.6 H Assessment/Recommendation/Discussion Spoke with provider about potential source and provider wishes to target a 7 day course of empiric antibiotics including ESBL-E coverage. End dates added for 06/16/24 to the two antibiotic orders. Will sign off at this point. Thank you for the interesting consult. Jeremie Reese, PharmD Infectious Disease/Antimicrobial Stewardship Pharmacist 06/15/24; 1332 WBC 18.6 K/mm3 (4.5-10.0) H 06/15/24 05:36 Creatinine 0.80 mg/dL (0.7-1.0) 06/15/24 05:36 Estim Creat Clear Calc 61 ml/min 06/15/24 05:36 Initial Note Copied Below For Convenience Subjective Pharmacy was consulted by Eduard Rai regarding infectious diseases for [place] Ambriz. Maine Ambriz is a 74 year old F with concerns regarding leukocytosis. Background The patient is currently receiving meropenem and vancomycin (Day 3 of this course) and has recently finished a 5-day course of doxycycline. The patient's PMH includes potential pneumonia, esophagitis alongside lung cancer, 2L baseline O2, and T2DM. Additionally, WBC has shown some decrease from yesterday (32.4) to today (26.7), which may be a sign of some resolution. MRSA nares PCR, sputum cx, and UCX have not shown specific source of infection and blood cultures show NGTD. Microbiology 06/07/24 15:21 Blood Blood Culture - Preliminary 06/07/24 15:21 Blood Blood Culture - Preliminary 06/07/24 13:42 Sputum Sputum Culture - Final 06/07/24 02:10 Urine Clean Catch Urine Culture - Final Laboratory Tests 06/06/24 06/07/24 06/08/24 21:58 13:36 06:36 WBC 19.3 H 21.8 H Nasal MRSA (PCR) Not detected Ur L.pneumophila Ag Urine Pneumococcal Ag 06/09/24 06/10/24 06/10/24 05:33 05:26 08:59 WBC 27.4 H 29.0 H Nasal MRSA (PCR) Not detected Ur L.pneumophila Ag Urine Pneumococcal Ag 06/10/24 06/10/24 06/11/24 12:06 12:06 06:12 WBC 32.4 H Nasal MRSA (PCR) Ur L.pneumophila Ag Pending Urine Pneumococcal Ag Pending 06/12/24 07:57 WBC 26.7 H Nasal MRSA (PCR) Ur L.pneumophila Ag Urine Pneumococcal Ag Assessment/Recommendation/Discussion Spoke briefly with provider, currently on very broad-spectrum antibiotic therapy and has already received coverage for atypical pathogens, though those serologies are pending. Discussed that potentially a fungal source could be present given risk factors. If is of concern, then can consider ordering fungal antibody panel, fungitell myya-g-penkku, and a galactomannan. Empiric fungal coverage may include micafungin, if appropriate, 100 mg IV daily given current esophagitis may be of a krish source. Thank you for the interesting consult. Jeremie Reese, PharmD Infectious Disease/Antimicrobial Stewardship Pharmacist 06/12/24; 7199
--- NOTE | 2024-06-15 13:36 | PM.IMPN ---
Progress Note: A&P Assessment and Plan (1) Pneumonia: Qualifiers: Pneumonia type: due to unspecified organism Laterality: unspecified laterality Lung location: unspecified part of lung Qualified Code(s): J18.9 - Pneumonia, unspecified organism Code(s): J18.9 - Pneumonia, unspecified organism Status: Acute Assessment and Plan: Patient presents with nausea and vomiting. White count was elevated on admission. Chest x-ray shows worsened airspace opacities with volume loss in the left apex likely radiation pneumonitis. MRSA nasal swab was negative Leukocytosis on admission with uptrending WBC 19 -> 32.4 Denies any fever, chills or cough. No diarrhea. Treated with cefepime and doxycycline but WBC was climbing. Urine culture negative. Sputum culture negative. Blood cultures negative CT Ch/A/P (06/10) showing complete collapse of left lung upper lobe with small loculated left pleural effusion, mild pulmonary edema, radiation fibrosis involving the perihilar regions but no evidence of metastatic disease. CRP 19. Echo showing EF 65-70%, mild concentric LV wall thickness, Grade I diastolic dysfunction, and mild valvular disease. Antibiotics changed to meropenem and vancomycin on 06/10 WBC was up to 32.4K but better at 18K. Suspect she has MDRO causing PNA. Continue current abx for now to complete a 7 days course. (2) Hyponatremia: Code(s): E87.1 - Hypo-osmolality and hyponatremia Status: Acute Assessment and Plan: Hyponatremia with Na 131 today and improved Cortisol elevated at 31 and TSH normal. Urine Na 19, UCr 50.5. FENA 1.7%. FEUrea 33%. Probably dehydration as etiology of low sodium but noted to have pedal edema and mild pulm edema by CT. Probably leg edema related to low albumin. Completed Albumin x 4 doses. Lasix IV once and edema better. Continue home Lasix. Repeat Lasix IV once. Follow for now. (3) Anemia: Code(s): D64.9 - Anemia, unspecified Status: Acute Assessment and Plan: Hgb low on admission at 8.6 and was stable in the 7-8 range. Iron 16 with low TIBC and TSat 8%. Ferritin 98. B12/Folate normal. Hgb 6.8 but felt to be lab error since better on repeat. Hgb dropped again to 6.7 on 06/13 and she was transfused 1U PRBC. Hgb 8 range and stable. Monitor HH closely. IV iron daily for 3 doses. Stool guaiac positive but has known severe gastritis. GI following Holding Eliquis again until HH stable. (4) Gastritis: Code(s): K29.70 - Gastritis, unspecified, without bleeding Status: Acute Assessment and Plan: Worsening abd pain with nausea and vomiting 06/11. She states she has had these symptoms for a few weeks and has been worsening. She was on prednisone prior to admission but was not on her home med list on admission so not continued here. She has been on Protonix BID since admission. She was complaining of epigastric pain. CT Abd/pelvis without contrast 06/10 showing no acute findings. No odynophagia or dysphagia. No oral lesions. Tums and mylanta added. Changed Protonix to IV. GI consulted and patient went for an EGD 06/12 showing severe gastritis in the body and antrum described as severe erythematous and edematous changes but no ulcers. Biopsies were taken. Esophagus and duodenum were normal in appearance. Symptoms were better and she was eating but still having nausea/vomiting. Carafate added. Symptoms somewhat better Continue Protonix IV and Carafate. Continue Zofran as needed. (5) Leukocytosis: Code(s): D72.829 - Elevated white blood cell count, unspecified Status: Acute Assessment and Plan: Patient has past medical history of leukocytosis although unclear on extent of this. White count at time of discharge from prior hospital was 16K. She was on steroids at last discharge but not on steroids on admission As above (6) Lung cancer: Qualifiers: Laterality: left Lung location: u
[2024-06-15] MEDS: FUROSEMIDE INJ 40 MG/4 ML VIAL 20 MG IV PUSH (15:05)
[2024-06-15] MEDS: FLUTICASONE PROPIONATE 0.05% NA SPR 16 GM BTL (*BKC) 2 SPRAY NASAL (15:07)
[2024-06-15 16:06] LABS: Glucose Point of Care 144 mg/dl (65-105)
[2024-06-15] MEDS: VANCOMYCIN 1,500 MG/NS 500 ML 1,500 MG/500 ML BAG 250 MG IVPB (17:21)
[2024-06-15 20:14] LABS: Glucose Point of Care 131 mg/dl (65-105)
[2024-06-16] MEDS: CENTRAL LINE FLUSH 10 ML IV PUSH ×3 (05:10→22:00)
[2024-06-16] MEDS: MEROPENEM 1 GM/NS 100 ML 1 GM/100 ML BAG IVPB ×3 (05:11→20:46)
[2024-06-16] MEDS: SUCRALFATE 1 GM TABLET PO ×4 (05:11→20:24)
[2024-06-16 05:18] LABS: Basophils Percent Auto 0.2 % (0.2-1.2); Eosinophils Percent Auto 0.1 % (0-4.4); Hematocrit 26.4 % (37.0-47.0); Hemoglobin 8.3 g/dL (12.0-15.0); Immature Granulocyte Absolute 0.62 K/mm3 (0.00-0.031); Immature Granulocyte Percent A 3.4 % (0-0.5); Lymphocytes Absolute Auto 0.64 K/mm3 (0.9-3.2); Lymphocytes Percent Auto 3.5 % (18.3-44.2); Mean Corpuscular HGB Conc 31.4 g/dl (32-36); Mean Corpuscular Hemoglobin 26.4 pg (26-34); Mean Corpuscular Volume 84.1 fl (80-100); Mean Platelet Volume 8.5 fl (7.4-10.4); Monocytes Absolute Auto 1.1 K/mm3 (0.1-0.6); Monocytes Percent Auto 5.8 % (2.6-8.5); Neutrophils Absolute Auto 15.9 K/mm3 (1.3-6.7); Platelet Count Result 344 k/mm3 (150-375); Red Blood Count 3.14 M/mm3 (4.2-5.4); Red Cell Distribution Width 17.8 % (11.5-14.5); White Blood Count 18.2 K/mm3 (4.5-10.0)
[2024-06-16 05:31] LABS: Alanine Aminotransferase 21 U/L (6-35); Albumin Level 2.4 g/dL (3.5-5.1); Alkaline Phosphatase 98 U/L (38-126); Anion Gap 5 mmol/L (4-12); Aspartate Amino Transferase 32 U/L (14-36); Bilirubin,Total 0.5 mg/dL (0.2-1.3); Blood Urea Nitrogen 20 mg/dL (7-17); Calcium 7.7 mg/dL (8.4-10.2); Carbon Dioxide 28 mmol/L (22-30); Chloride 96 mmol/L (98-107); Estimated CRCL calculation 55 ml/min; Estimated Glomerular Filt Rate > 60; Glucose 120 mg/dL (65-110); Magnesium 1.8 mg/dL (1.6-2.3); Phosphorus 2.4 mg/dL (2.5-4.5); Potassium 3.6 mmol/L (3.4-5.0); Sodium 129 mmol/L (137-145)
[2024-06-16 06:00] VITALS: BP 105/45; PULSE 82; RESP 16; TEMP 35.8; O2SAT 93
[2024-06-16 07:38] LABS: Glucose Point of Care 104 mg/dl (65-105)
[2024-06-16] MEDS: FLUTICASONE/UMECLIDIN/VILANTER 100-62.5-25 MCG ELLIPTA 1 PUFF INHALATION (07:49)
[2024-06-16] MEDS: ALBUTEROL SULFATE NEB 2.5 MG/3 ML INH INHALATION ×2 (07:49→19:44)
[2024-06-16 07:50] VITALS: PULSE 82; RESP 18; O2SAT 95
[2024-06-16 07:59] VITALS: PULSE 82; RESP 18
[2024-06-16] MEDS: ONDANSETRON INJ 4 MG/2 ML VIAL IV PUSH ×3 (08:44→20:59)
[2024-06-16] MEDS: POTASSIUM/PHOSPHORUS/SODIUM 1.5 GM PACKET 1 PACKET PO (08:47)
[2024-06-16] MEDS: PANTOPRAZOLE SODIUM IV 40 MG VIAL IV PUSH ×2 (08:48→20:24)
[2024-06-16] MEDS: POTASSIUM CHLORIDE 20 MEQ ER TABLET 40 MEQ PO (08:48)
[2024-06-16] MEDS: dilTIAZem HCL CD 240 MG CAP.24HR PO ×2 (08:48→20:24)
[2024-06-16] MEDS: LETROZOLE (*CHEMO) 2.5 MG TABLET PO (08:48)
[2024-06-16] MEDS: FUROSEMIDE INJ 40 MG/4 ML VIAL 20 MG IV PUSH ×2 (08:48→17:31)
[2024-06-16] MEDS: SERTRALINE HCL 50 MG TABLET BY MOUTH (08:49)
[2024-06-16] MEDS: PRAVASTATIN SODIUM 20 MG TABLET BY MOUTH (08:49)
[2024-06-16] MEDS: ROFLUMILAST 500 MCG TABLET PO (08:49)
[2024-06-16] MEDS: MAGNESIUM SULF 2 GM/WATER 50ML 2 GM/50 ML BAG IVPB (08:50)
--- NOTE | 2024-06-16 09:32 | PM.IMPN ---
Progress Note: A&P Assessment and Plan (1) Pneumonia: Qualifiers: Pneumonia type: due to unspecified organism Laterality: unspecified laterality Lung location: unspecified part of lung Qualified Code(s): J18.9 - Pneumonia, unspecified organism Code(s): J18.9 - Pneumonia, unspecified organism Status: Acute Assessment and Plan: Patient presents with nausea and vomiting. White count was elevated on admission. Chest x-ray shows worsened airspace opacities with volume loss in the left apex likely radiation pneumonitis. MRSA nasal swab was negative Leukocytosis on admission with uptrending WBC 19 -> 32.4 No fever, chills or cough. No diarrhea. Started on cefepime and doxycycline but WBC was climbing. Urine culture negative. Sputum culture negative. Blood cultures negative CT Ch/A/P (06/10) showing complete collapse of left lung upper lobe with small loculated left pleural effusion, mild pulmonary edema, radiation fibrosis involving the perihilar regions but no evidence of metastatic disease. CRP 19. Echo showing EF 65-70%, mild concentric LV wall thickness, Grade I diastolic dysfunction, and mild valvular disease. Antibiotics changed to meropenem and vancomycin on 06/10 WBC was up to 32.4K but better at 18K. WBC has remained stable in the 18 range for the past 3 days Suspect she has MDRO causing PNA. Continue current abx for now to complete a 7 days course. Consider adding anti-fungal treatment. Consider re-culturing once off abx. (2) Hyponatremia: Code(s): E87.1 - Hypo-osmolality and hyponatremia Status: Acute Assessment and Plan: Hyponatremia with Na up and down around 128-132 range Cortisol elevated at 31 and TSH normal. Urine Na 19, UCr 50.5. FENA 1.7%. FEUrea 33%. Probably dehydration as etiology of low sodium but noted to have pedal edema and mild pulm edema by CT. Probably leg edema related to low albumin. Completed Albumin x 4 doses. Lasix IV with some benefit. Albumin back down to 2.4. Continue IV Lasix. Has been on Eliquis prior to admission and during her hospital course through 06/13 but off the past 2 days due to drop in Hgb and positive stool guaiac. Continue Lasix IV as BP tolerates. She is not wearing SCDs. Check LE venous dopplers. Resume Eliquis Continue to monitor (3) Anemia: Code(s): D64.9 - Anemia, unspecified Status: Acute Assessment and Plan: Hgb low on admission at 8.6 and was stable in the 7-8 range. Iron 16 with low TIBC and TSat 8%. Ferritin 98. B12/Folate normal. Hgb 6.8 but felt to be lab error since better on repeat. Hgb dropped again to 6.7 on 06/13 and she was transfused 1U PRBC. Hgb 8 range and stable. Monitor HH closely. IV iron daily for 3 doses. Stool guaiac positive but has known severe gastritis. GI following HH stable. Resume Eliquis (4) Gastritis: Code(s): K29.70 - Gastritis, unspecified, without bleeding Status: Acute Assessment and Plan: Worsening abd pain with nausea and vomiting 06/11. She states she has had these symptoms for a few weeks and has been worsening. She was on prednisone prior to admission but was not on her home med list on admission so not continued here. She has been on Protonix BID since admission. She was complaining of epigastric pain. CT Abd/pelvis without contrast 06/10 showing no acute findings. No odynophagia or dysphagia. No oral lesions. Tums and mylanta added. Changed Protonix to IV. GI consulted and patient went for an EGD 06/12 showing severe gastritis in the body and antrum described as severe erythematous and edematous changes but no ulcers. Biopsies were taken. Esophagus and duodenum were normal in appearance. She was having persistent symptoms so Carafate added with improvement but still with occasional nausea/vomiting. Symptoms better overall Continue Protonix IV and Carafate. Continue Zofran as needed. (5) Leukocytosis: Code(s): D72.829 - Elevated
[2024-06-16] MEDS: MAG HYDROX/AL HYDROX/SIMETH 30 ML UDC PO (11:00)
[2024-06-16 11:51] LABS: Glucose Point of Care 124 mg/dl (65-105)
[2024-06-16 14:00] VITALS: BP 107/55; PULSE 88; RESP 20; TEMP 37.1; O2SAT 96
[2024-06-16] MEDS: VANCOMYCIN 1,500 MG/NS 500 ML 1,500 MG/500 ML BAG 250 MG IVPB (14:00)
[2024-06-16] MEDS: HYDROcodone/acetaminophen (*CRX) 5-325 MG TABLET 1 TAB PO ×2 (16:07→20:30)
[2024-06-16 16:13] LABS: Glucose Point of Care 106 mg/dl (65-105)
[2024-06-16 18:03] LABS: Pneumococcal Antigen Urine NOT DETECTED
[2024-06-16 19:46] VITALS: PULSE 83; RESP 18; O2SAT 91
[2024-06-16 19:51] VITALS: PULSE 83; RESP 18
[2024-06-16] MEDS: APIXABAN 5 MG TABLET PO (20:24)
[2024-06-16] MEDS: TIZANIDINE HCL 4 MG TABLET PO (20:31)
[2024-06-16 21:03] LABS: Glucose Point of Care 108 mg/dl (65-105)
[2024-06-17] VITALS (11 sets, daily range): BP systolic 106–130; BP diastolic 45–71; PULSE 72–100; RESP 18; TEMP 37.3–37.5; O2SAT 92–96; BMI 30.2
[2024-06-17 04:07] LABS: Legionella pneumophila Ag Ur NOT DETECTED
[2024-06-17] MEDS: ONDANSETRON INJ 4 MG/2 ML VIAL IV PUSH ×2 (04:08→13:09)
[2024-06-17] MEDS: SUCRALFATE 1 GM TABLET PO ×4 (06:14→21:13)
[2024-06-17] MEDS: CENTRAL LINE FLUSH 10 ML IV PUSH ×3 (06:15→21:16)
[2024-06-17 06:37] LABS: Basophils Percent Auto 0.2 % (0.2-1.2); Eosinophils Percent Auto 0.2 % (0-4.4); Hematocrit 27.5 % (37.0-47.0); Hemoglobin 8.4 g/dL (12.0-15.0); Immature Granulocyte Absolute 0.59 K/mm3 (0.00-0.031); Immature Granulocyte Percent A 3.6 % (0-0.5); Lymphocytes Absolute Auto 0.45 K/mm3 (0.9-3.2); Lymphocytes Percent Auto 2.7 % (18.3-44.2); Mean Corpuscular HGB Conc 30.5 g/dl (32-36); Mean Corpuscular Hemoglobin 25.5 pg (26-34); Mean Corpuscular Volume 83.6 fl (80-100); Mean Platelet Volume 8.9 fl (7.4-10.4); Monocytes Absolute Auto 0.8 K/mm3 (0.1-0.6); Monocytes Percent Auto 5.1 % (2.6-8.5); Neutrophils Absolute Auto 14.6 K/mm3 (1.3-6.7); Neutrophils Percent Auto 88.2 % (45.5-73.1); Platelet Count Result 376 k/mm3 (150-375); Red Blood Count 3.29 M/mm3 (4.2-5.4); Red Cell Distribution Width 17.9 % (11.5-14.5); White Blood Count 16.6 K/mm3 (4.5-10.0)
[2024-06-17 06:42] LABS: Albumin Level 2.4 g/dL (3.5-5.1); Anion Gap 5 mmol/L (4-12); Blood Urea Nitrogen 22 mg/dL (7-17); Calcium 7.6 mg/dL (8.4-10.2); Carbon Dioxide 28 mmol/L (22-30); Chloride 95 mmol/L (98-107); Estimated CRCL calculation 45 ml/min; Estimated Glomerular Filt Rate 48; Glucose 105 mg/dL (65-110); Magnesium 2.1 mg/dL (1.6-2.3); Phosphorus 2.5 mg/dL (2.5-4.5); Potassium 3.3 mmol/L (3.4-5.0); Sodium 128 mmol/L (137-145)
[2024-06-17] MEDS: ALBUTEROL SULFATE NEB 2.5 MG/3 ML INH INHALATION ×3 (07:33→20:17)
[2024-06-17] MEDS: FLUTICASONE/UMECLIDIN/VILANTER 100-62.5-25 MCG ELLIPTA 1 PUFF INHALATION (07:34)
[2024-06-17 07:50] LABS: Glucose Point of Care 99 mg/dl (65-105)
--- NOTE | 2024-06-17 09:37 | PCPTNOTE ---
Attempted PT evaluation, per RN, pt is resting right now and asked therapy to return at a later time. Will follow.
[2024-06-17] MEDS: APIXABAN 5 MG TABLET PO ×2 (10:46→21:13)
[2024-06-17] MEDS: SERTRALINE HCL 50 MG TABLET BY MOUTH (10:46)
[2024-06-17] MEDS: dilTIAZem HCL CD 240 MG CAP.24HR PO ×2 (10:46→21:13)
[2024-06-17] MEDS: LETROZOLE (*CHEMO) 2.5 MG TABLET PO (10:47)
[2024-06-17] MEDS: ROFLUMILAST 500 MCG TABLET PO (10:47)
[2024-06-17] MEDS: PRAVASTATIN SODIUM 20 MG TABLET BY MOUTH (10:47)
[2024-06-17] MEDS: FUROSEMIDE INJ 40 MG/4 ML VIAL 20 MG IV PUSH ×2 (10:49→15:32)
[2024-06-17] MEDS: POTASSIUM CHLORIDE 20 MEQ ER TABLET 40 MEQ PO (11:21)
[2024-06-17] MEDS: MAG HYDROX/AL HYDROX/SIMETH 30 ML UDC PO (11:21)
[2024-06-17] MEDS: FLUTICASONE PROPIONATE 0.05% NA SPR 16 GM BTL (*BKC) 2 SPRAY NASAL (11:23)
[2024-06-17 11:31] LABS: Glucose Point of Care 117 mg/dl (65-105)
[2024-06-17] MEDS: PANTOPRAZOLE SODIUM IV 40 MG VIAL IV PUSH ×2 (13:10→21:14)
--- NOTE | 2024-06-17 15:03 | ECG_ITS ---
Test Date: 2024-06-17 15:19:59 Measurements Intervals [place] Rate: 92 P: 4 MN: 160 QRS: -15 QRSD: 95 T: 55 QT: 341 QTc: 423 Interpretive Statements SINUS RHYTHM NONSPECIFIC T-WAVE ABNORMALITY No previous ECG available for comparison Electronically Signed On 06-18-2024 14:25:52 CDT by Clarisa Reese M.D.
[2024-06-17] MEDS: METOCLOPRAMIDE HCL INJ 10 MG/2 ML VIAL 5 MG IV PUSH ×2 (15:31→21:15)
--- NOTE | 2024-06-17 15:34 | WPDPN ---
Progress Note: A&P Assessment and Plan (1) Nausea and vomiting in adult: Code(s): R11.2 - Nausea with vomiting, unspecified Status: Acute (2) Chronic respiratory failure: Code(s): J96.10 - Chronic respiratory failure, unspecified whether with hypoxia or hypercapnia Status: Acute (3) Leukocytosis: Code(s): D72.829 - Elevated white blood cell count, unspecified Status: Acute (4) Hyponatremia: Code(s): E87.1 - Hypo-osmolality and hyponatremia Status: Acute Plan today patient white counts is trending down to 16.6 compare to high of 32. 2/2 pneumonitis being treated with meropenem and vancomycin however patient having fever today will discuss with ID pharmacist and further recommendation to follow, patient continue to have nausea and vomiting Zofran is not helping will start the patient on regular 5 mg every 8 hours for 48 hours however patient on Zoloft and is a concern for interaction possible QT interval, will place the patient on tele and monitor. 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 Patient remains clinically stable and continue to monitor. Subjective Date/time seen: 06/17/24 15:34 Interval history: 74yo female squamous cell lung cancer, COPD/emphysema, HTN, insulin-dependent DM, chronic hypoxic respiratory failure on 2L, SHARYN (unable to tolerate) and was recently discharged from [facility] for hemoptysis, mucous plugging s/p bronchoscopy here for nausea and vomiting. Tried glucerna on 06/15 but developed dry heaves. Feels weak. Declines SNF with plans for home at discharge. +BM - no diarrhea. No rash. Slight nonproductive cough. +MCGUIRE when up to bedside commode. Persistent LE edema despite keeping them elevated over night. No significant increase in UOP with Lasix Patient presents with nausea and vomiting. White count was elevated on admission. Chest x-ray shows worsened airspace opacities with volume loss in the left apex likely radiation pneumonitis. MRSA nasal swab was negative Leukocytosis on admission with uptrending WBC 19 -> 32.4 No fever, chills or cough. No diarrhea. Started on cefepime and doxycycline but WBC was climbing. Urine culture negative. Sputum culture negative. Blood cultures negative CT Ch/A/P (06/10) showing complete collapse of left lung upper lobe with small loculated left pleural effusion, mild pulmonary edema, radiation fibrosis involving the perihilar regions but no evidence of metastatic disease. CRP 19. Echo showing EF 65-70%, mild concentric LV wall thickness, Grade I diastolic dysfunction, and mild valvular disease. Antibiotics changed to meropenem and vancomycin on 06/10 WBC was up to 32.4K but better at 18K. WBC has remained stable in the 18 range for the past 3 days Suspect she has MDRO causing PNA. Continue current abx for now to complete a 7 days course. Consider adding anti-fungal treatment. Consider re-culturing once off abx. today patient white counts is trending down to 16.6 compare to high of 32. 2/2 pneumonitis being treated with meropenem and vancomycin however patient having fever today will discuss with ID pharmacist and further recommendation to follow, patient continue to have nausea and vomiting Zofran is not helping will start the patient on regular 5 mg every 8 hours for 48 hours however patient on Zoloft and is a concern for interaction possible QT interval, will place the patient on tele and monitor. 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 Patient remains clinically stable and continue to monitor. Exam Narrative: Patient is comfortable, NAD HEENT: eyes are clear and none icteric LUNGS: Bilateral fair air with rhonchi HEART: RR S1S2 ABD: BS+, Soft and nontender Lower extremities: edema SKIN: nonjaundiced Neuro: grossly intact. Objective Data Vital Signs Vital Signs: Vital Signs - 24 hr 06/16/24 19:46
[2024-06-17 16:33] LABS: Glucose Point of Care 117 mg/dl (65-105)
[2024-06-17 20:11] LABS: Glucose Point of Care 116 mg/dl (65-105)
[2024-06-17] MEDS: TIZANIDINE HCL 4 MG TABLET PO (22:18)
[2024-06-17] MEDS: HYDROcodone/acetaminophen (*CRX) 5-325 MG TABLET 1 TAB PO (22:19)
[2024-06-18] VITALS (16 sets, daily range): BP systolic 107–116; BP diastolic 50–52; PULSE 75–101; RESP 18–20; TEMP 36.6–37.2; O2SAT 94–98
[2024-06-18] MEDS: SUCRALFATE 1 GM TABLET PO ×4 (05:02→21:56)
[2024-06-18] MEDS: CENTRAL LINE FLUSH 10 ML IV PUSH ×3 (05:03→21:56)
[2024-06-18] MEDS: HYDROcodone/acetaminophen (*CRX) 5-325 MG TABLET 1 TAB PO ×2 (05:03→22:07)
[2024-06-18] MEDS: METOCLOPRAMIDE HCL INJ 10 MG/2 ML VIAL 5 MG IV PUSH ×3 (05:03→21:56)
[2024-06-18 05:28] LABS: Hemoglobin 8.4 g/dL (12.0-15.0); Mean Corpuscular HGB Conc 31.1 g/dl (32-36); Mean Corpuscular Hemoglobin 25.9 pg (26-34); Mean Corpuscular Volume 83.3 fl (80-100); Mean Platelet Volume 8.9 fl (7.4-10.4); Platelet Count Result 397 k/mm3 (150-375); Red Blood Count 3.24 M/mm3 (4.2-5.4); Red Cell Distribution Width 17.9 % (11.5-14.5); White Blood Count 17.4 K/mm3 (4.5-10.0)
[2024-06-18 05:38] LABS: Anion Gap 6 mmol/L (4-12); Blood Urea Nitrogen 24 mg/dL (7-17); Calcium 7.8 mg/dL (8.4-10.2); Carbon Dioxide 30 mmol/L (22-30); Chloride 93 mmol/L (98-107); Estimated CRCL calculation 42 ml/min; Estimated Glomerular Filt Rate 44; Glucose 96 mg/dL (65-110); Potassium 3.5 mmol/L (3.4-5.0); Sodium 129 mmol/L (137-145)
[2024-06-18] MEDS: FLUTICASONE/UMECLIDIN/VILANTER 100-62.5-25 MCG ELLIPTA 1 PUFF INHALATION (07:10)
[2024-06-18] MEDS: ALBUTEROL SULFATE NEB 2.5 MG/3 ML INH INHALATION ×3 (07:11→20:56)
[2024-06-18 07:26] LABS: Glucose Point of Care 97 mg/dl (65-105)
[2024-06-18] MEDS: FLUTICASONE PROPIONATE 0.05% NA SPR 16 GM BTL (*BKC) 2 SPRAY NASAL (08:47)
[2024-06-18] MEDS: PRAVASTATIN SODIUM 20 MG TABLET BY MOUTH (08:47)
[2024-06-18] MEDS: LETROZOLE (*CHEMO) 2.5 MG TABLET PO (08:47)
[2024-06-18] MEDS: SERTRALINE HCL 25 MG TABLET PO (08:47)
[2024-06-18] MEDS: APIXABAN 5 MG TABLET PO ×2 (08:47→21:56)
[2024-06-18] MEDS: ROFLUMILAST 500 MCG TABLET PO (08:47)
[2024-06-18] MEDS: dilTIAZem HCL CD 240 MG CAP.24HR PO ×2 (08:47→21:56)
[2024-06-18] MEDS: FUROSEMIDE INJ 40 MG/4 ML VIAL 20 MG IV PUSH ×2 (08:47→16:33)
[2024-06-18] MEDS: PANTOPRAZOLE SODIUM IV 40 MG VIAL IV PUSH ×2 (08:47→21:56)
--- NOTE | 2024-06-18 10:28 | WPDPN ---
Progress Note: A&P Assessment and Plan (1) Nausea and vomiting in adult: Code(s): R11.2 - Nausea with vomiting, unspecified Status: Acute (2) Chronic respiratory failure: Code(s): J96.10 - Chronic respiratory failure, unspecified whether with hypoxia or hypercapnia Status: Acute (3) Leukocytosis: Code(s): D72.829 - Elevated white blood cell count, unspecified Status: Acute (4) Hyponatremia: Code(s): E87.1 - Hypo-osmolality and hyponatremia Status: Acute Plan today patient white counts is trending slightly up 17.6 compare to high of 32. 2/2 pneumonitis was treated with meropenem and vancomycin however patient had a low grade fever on 06/17 today fever is close to normal, patient continue to have nausea and vomiting Zofran is not helping on 06/17 started the patient on reglan 5 mg every 8 hours for 48 hours however patient on Zoloft and is a concern for interaction possible QT interval, placeed the patient on tele and monitor. 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 Patient remains clinically stable and continue to monitor. Subjective Date/time seen: 06/18/24 10:28 Interval history: 74yo female squamous cell lung cancer, COPD/emphysema, HTN, insulin-dependent DM, chronic hypoxic respiratory failure on 2L, SHARYN (unable to tolerate) and was recently discharged from [place] for hemoptysis, mucous plugging s/p bronchoscopy here for nausea and vomiting. Tried glucerna on 06/15 but developed dry heaves. Feels weak. Declines SNF with plans for home at discharge. +BM - no diarrhea. No rash. Slight nonproductive cough. +MCGUIRE when up to bedside commode. Persistent LE edema despite keeping them elevated over night. No significant increase in UOP with Lasix Patient presents with nausea and vomiting. White count was elevated on admission. Chest x-ray shows worsened airspace opacities with volume loss in the left apex likely radiation pneumonitis. MRSA nasal swab was negative Leukocytosis on admission with uptrending WBC 19 -> 32.4 No fever, chills or cough. No diarrhea. Started on cefepime and doxycycline but WBC was climbing. Urine culture negative. Sputum culture negative. Blood cultures negative CT Ch/A/P (06/10) showing complete collapse of left lung upper lobe with small loculated left pleural effusion, mild pulmonary edema, radiation fibrosis involving the perihilar regions but no evidence of metastatic disease. CRP 19. Echo showing EF 65-70%, mild concentric LV wall thickness, Grade I diastolic dysfunction, and mild valvular disease. Antibiotics changed to meropenem and vancomycin on 06/10 WBC was up to 32.4K but better at 18K. WBC has remained stable in the 18 range for the past 3 days Suspect she has MDRO causing PNA. Continue current abx for now to complete a 7 days course. Consider adding anti-fungal treatment. Consider re-culturing once off abx. today patient white counts is trending slightly up 17.6 compare to high of 32. 2/2 pneumonitis was treated with meropenem and vancomycin however patient had a low grade fever on 06/17 today fever is close to normal, patient continue to have nausea and vomiting Zofran is not helping on 06/17 started the patient on reglan 5 mg every 8 hours for 48 hours however patient on Zoloft and is a concern for interaction possible QT interval, placeed the patient on tele and monitor. 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 Patient remains clinically stable and continue to monitor. Review of Systems Review of Systems: Nausea, vomiting, poor per orally intake Exam Narrative: Patient is comfortable, NAD HEENT: eyes are clear and none icteric LUNGS: Bilateral fair air with rhonchi HEART: RR
[2024-06-18 11:38] LABS: Glucose Point of Care 116 mg/dl (65-105)
--- NOTE | 2024-06-18 13:27 | PCPTNOTE ---
On 06/18/24, the student, [Cinthia Love], provided care and completed [facility] documentation on this patient. I have reviewed the student's documentation and agree with the findings.
[2024-06-18 16:37] LABS: Glucose Point of Care 96 mg/dl (65-105)
[2024-06-18] MEDS: ONDANSETRON INJ 4 MG/2 ML VIAL IV PUSH (17:44)
[2024-06-18 19:54] LABS: Glucose Point of Care 130 mg/dl (65-105)
[2024-06-18] MEDS: TIZANIDINE HCL 4 MG TABLET PO (22:11)
[2024-06-19] VITALS (18 sets, daily range): BP systolic 118–122; BP diastolic 44–58; PULSE 76–101; RESP 17–20; TEMP 36.9–37.4; O2SAT 91–99
[2024-06-19 00:54] LABS: Glucose Point of Care 127 mg/dl (65-105)
[2024-06-19] MEDS: METOCLOPRAMIDE HCL INJ 10 MG/2 ML VIAL 5 MG IV PUSH ×2 (06:47→21:30)
[2024-06-19] MEDS: SUCRALFATE 1 GM TABLET PO ×4 (06:47→21:28)
[2024-06-19] MEDS: CENTRAL LINE FLUSH 10 ML IV PUSH ×2 (06:47→21:30)
[2024-06-19 07:02] LABS: Hematocrit 26.7 % (37.0-47.0); Hemoglobin 8.2 g/dL (12.0-15.0); Mean Corpuscular HGB Conc 30.7 g/dl (32-36); Mean Corpuscular Hemoglobin 25.3 pg (26-34); Mean Corpuscular Volume 82.4 fl (80-100); Mean Platelet Volume 8.8 fl (7.4-10.4); Platelet Count Result 392 k/mm3 (150-375); Red Blood Count 3.24 M/mm3 (4.2-5.4); Red Cell Distribution Width 17.8 % (11.5-14.5); White Blood Count 17.1 K/mm3 (4.5-10.0)
[2024-06-19 07:13] LABS: Anion Gap 7 mmol/L (4-12); Blood Urea Nitrogen 27 mg/dL (7-17); Calcium 7.8 mg/dL (8.4-10.2); Carbon Dioxide 29 mmol/L (22-30); Chloride 92 mmol/L (98-107); Estimated CRCL calculation 39 ml/min; Estimated Glomerular Filt Rate 40; Glucose 91 mg/dL (65-110); Potassium 3.2 mmol/L (3.4-5.0); Sodium 128 mmol/L (137-145)
[2024-06-19 07:29] LABS: Glucose Point of Care 91 mg/dl (65-105)
[2024-06-19] MEDS: ALBUTEROL SULFATE NEB 2.5 MG/3 ML INH INHALATION ×3 (07:49→19:56)
[2024-06-19] MEDS: FLUTICASONE/UMECLIDIN/VILANTER 100-62.5-25 MCG ELLIPTA 1 PUFF INHALATION (07:50)
[2024-06-19] MEDS: POTASSIUM CHLORIDE 20 MEQ ER TABLET 40 MEQ PO (09:46)
[2024-06-19] MEDS: ROFLUMILAST 500 MCG TABLET PO (09:46)
[2024-06-19] MEDS: LETROZOLE (*CHEMO) 2.5 MG TABLET PO (09:46)
[2024-06-19] MEDS: PRAVASTATIN SODIUM 20 MG TABLET BY MOUTH (09:46)
[2024-06-19] MEDS: SERTRALINE HCL 25 MG TABLET PO (09:46)
[2024-06-19] MEDS: FLUTICASONE PROPIONATE 0.05% NA SPR 16 GM BTL (*BKC) 2 SPRAY NASAL (09:47)
[2024-06-19] MEDS: FUROSEMIDE INJ 40 MG/4 ML VIAL 20 MG IV PUSH ×2 (09:47→17:46)
[2024-06-19] MEDS: dilTIAZem HCL CD 240 MG CAP.24HR PO ×2 (09:47→21:26)
[2024-06-19] MEDS: APIXABAN 5 MG TABLET PO ×2 (09:47→21:26)
[2024-06-19] MEDS: PANTOPRAZOLE SODIUM IV 40 MG VIAL IV PUSH ×2 (09:48→21:30)
[2024-06-19] MEDS: HYDROcodone/acetaminophen (*CRX) 5-325 MG TABLET 1 TAB PO ×2 (09:50→21:27)
[2024-06-19] MEDS: CALCIUM CARBONATE (TUMS) 500 MG (200 MG ELEMENTAL) PO (09:52)
[2024-06-19 11:37] LABS: Glucose Point of Care 106 mg/dl (65-105)
[2024-06-19] MEDS: ONDANSETRON INJ 4 MG/2 ML VIAL IV PUSH (12:28)
--- NOTE | 2024-06-19 12:46 | WPDPN ---
Progress Note: A&P Assessment and Plan (1) Nausea and vomiting in adult: Code(s): R11.2 - Nausea with vomiting, unspecified Status: Acute (2) Chronic respiratory failure: Code(s): J96.10 - Chronic respiratory failure, unspecified whether with hypoxia or hypercapnia Status: Acute Assessment and Plan: most likley 2/2 lung cancer and small loculated pleural effusion. (3) Leukocytosis: Code(s): D72.829 - Elevated white blood cell count, unspecified Status: Acute Assessment and Plan: most likely 2/2 lung cancer and small loculated pleural effusion. (4) Hyponatremia: Code(s): E87.1 - Hypo-osmolality and hyponatremia Status: Acute Assessment and Plan: I suspect 2/2 SIADH as patient has lung cancer and lung disease Plan today patient white counts is trending slightly up 17.6 compare to high of 32. 2/2 pneumonitis was treated with meropenem and vancomycin however patient had a low grade fever on 06/17 today fever is close to normal, patient continue to have nausea and vomiting Zofran is not helping on 06/17 started the patient on reglan 5 mg every 8 hours for 48 hours however patient on Zoloft and is a concern for interaction possible QT interval, placeed the patient on tele and monitor. 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 Patient remains clinically stable and continue to monitor. Subjective Date/time seen: 06/19/24 12:46 Interval history: 74yo female squamous cell lung cancer, COPD/emphysema, HTN, insulin-dependent DM, chronic hypoxic respiratory failure on 2L, SHARYN (unable to tolerate) and was recently discharged from [place] for hemoptysis, mucous plugging s/p bronchoscopy here for nausea and vomiting. Tried glucerna on 06/15 but developed dry heaves. Feels weak. Declines SNF with plans for home at discharge. +BM - no diarrhea. No rash. Slight nonproductive cough. +MCGUIRE when up to bedside commode. Persistent LE edema despite keeping them elevated over night. No significant increase in UOP with Lasix Patient presents with nausea and vomiting. White count was elevated on admission. Chest x-ray shows worsened airspace opacities with volume loss in the left apex likely radiation pneumonitis. MRSA nasal swab was negative Leukocytosis on admission with uptrending WBC 19 -> 32.4 No fever, chills or cough. No diarrhea. Started on cefepime and doxycycline but WBC was climbing. Urine culture negative. Sputum culture negative. Blood cultures negative CT Ch/A/P (06/10) showing complete collapse of left lung upper lobe with small loculated left pleural effusion, mild pulmonary edema, radiation fibrosis involving the perihilar regions but no evidence of metastatic disease. CRP 19. Echo showing EF 65-70%, mild concentric LV wall thickness, Grade I diastolic dysfunction, and mild valvular disease. Antibiotics changed to meropenem and vancomycin on 06/10 WBC was up to 32.4K but better at 18K. WBC has remained stable in the 18 range for the past 3 days Suspect she has MDRO causing PNA. Continue current abx for now to complete a 7 days course. Consider adding anti-fungal treatment. Consider re-culturing once off abx. today patient white counts is trending slightly up 17.1 compare to high of 32, 2/2 pneumonitis was treated with meropenem and vancomycin however patient had a low grade fever on 06/17 as well fever, I suspect patient mildly elevated white counts are due to underling lung cancer small loculated pleural effusion, patient was having nausea and vomiting most likely mild gastroperesis as Zofran was not helping on 06/17 started the patient on reglan 5 mg every 8 hours for 48 hours however patient on Zoloft and is a concern for interaction possible QT interval, placed the patient on tele and monitor. patient symptoms have improved and her tele no acute
[2024-06-19 16:49] LABS: Glucose Point of Care 108 mg/dl (65-105)
[2024-06-19 20:01] LABS: Glucose Point of Care 104 mg/dl (65-105)
[2024-06-19] MEDS: TIZANIDINE HCL 4 MG TABLET PO (21:28)
[2024-06-20] VITALS (17 sets, daily range): BP systolic 102–112; BP diastolic 35–44; PULSE 76–94; RESP 14–20; TEMP 36.6–36.8; O2SAT 91–94
[2024-06-20] MEDS: SUCRALFATE 1 GM TABLET PO ×4 (05:36→21:29)
[2024-06-20] MEDS: METOCLOPRAMIDE HCL INJ 10 MG/2 ML VIAL 5 MG IV PUSH ×3 (05:36→21:29)
[2024-06-20] MEDS: CENTRAL LINE FLUSH 10 ML IV PUSH ×3 (05:37→21:30)
[2024-06-20 05:43] LABS: Hematocrit 25.5 % (37.0-47.0); Mean Corpuscular HGB Conc 31.4 g/dl (32-36); Mean Corpuscular Hemoglobin 25.9 pg (26-34); Mean Corpuscular Volume 82.5 fl (80-100); Mean Platelet Volume 8.7 fl (7.4-10.4); Platelet Count Result 371 k/mm3 (150-375); Red Blood Count 3.09 M/mm3 (4.2-5.4); Red Cell Distribution Width 17.9 % (11.5-14.5); White Blood Count 15.6 K/mm3 (4.5-10.0)
[2024-06-20 05:52] LABS: Anion Gap 7 mmol/L (4-12); Blood Urea Nitrogen 31 mg/dL (7-17); Calcium 7.9 mg/dL (8.4-10.2); Carbon Dioxide 29 mmol/L (22-30); Chloride 92 mmol/L (98-107); Estimated CRCL calculation 36 ml/min; Estimated Glomerular Filt Rate 37; Glucose 96 mg/dL (65-110); Potassium 3.3 mmol/L (3.4-5.0); Sodium 128 mmol/L (137-145)
[2024-06-20 07:32] LABS: Glucose Point of Care 97 mg/dl (65-105)
[2024-06-20] MEDS: ALBUTEROL SULFATE NEB 2.5 MG/3 ML INH INHALATION ×3 (07:45→19:30)
[2024-06-20] MEDS: FLUTICASONE/UMECLIDIN/VILANTER 100-62.5-25 MCG ELLIPTA 1 PUFF INHALATION (07:56)
[2024-06-20] MEDS: HYDROcodone/acetaminophen (*CRX) 5-325 MG TABLET 1 TAB PO ×2 (09:11→18:18)
[2024-06-20] MEDS: ROFLUMILAST 500 MCG TABLET PO (09:12)
[2024-06-20] MEDS: PRAVASTATIN SODIUM 20 MG TABLET BY MOUTH (09:12)
[2024-06-20] MEDS: APIXABAN 5 MG TABLET PO ×2 (09:12→21:29)
[2024-06-20] MEDS: CALCIUM CARBONATE (TUMS) 500 MG (200 MG ELEMENTAL) PO (09:12)
[2024-06-20] MEDS: dilTIAZem HCL CD 240 MG CAP.24HR PO (09:12)
[2024-06-20] MEDS: SERTRALINE HCL 25 MG TABLET PO (09:12)
[2024-06-20] MEDS: polyethylene glycoL 3350 17 GM POWD.PACK PO (09:12)
[2024-06-20] MEDS: LETROZOLE (*CHEMO) 2.5 MG TABLET PO (09:12)
[2024-06-20] MEDS: FUROSEMIDE INJ 40 MG/4 ML VIAL 20 MG IV PUSH ×2 (09:13→18:16)
[2024-06-20] MEDS: PANTOPRAZOLE SODIUM IV 40 MG VIAL IV PUSH ×2 (09:13→21:29)
[2024-06-20] MEDS: FLUTICASONE PROPIONATE 0.05% NA SPR 16 GM BTL (*BKC) 2 SPRAY NASAL (09:13)
[2024-06-20 11:35] LABS: Glucose Point of Care 127 mg/dl (65-105)
--- NOTE | 2024-06-20 12:28 | WPDPN ---
Progress Note: A&P Assessment and Plan (1) Nausea and vomiting in adult: Code(s): R11.2 - Nausea with vomiting, unspecified Status: Acute (2) Chronic respiratory failure: Code(s): J96.10 - Chronic respiratory failure, unspecified whether with hypoxia or hypercapnia Status: Acute Assessment and Plan: most likley 2/2 lung cancer and small loculated pleural effusion. (3) Leukocytosis: Code(s): D72.829 - Elevated white blood cell count, unspecified Status: Acute Assessment and Plan: most likely 2/2 lung cancer and small loculated pleural effusion. (4) Hyponatremia: Code(s): E87.1 - Hypo-osmolality and hyponatremia Status: Acute Assessment and Plan: I suspect 2/2 SIADH as patient has lung cancer and lung disease Plan today patient white counts is trending slightly down to 15.6 compare to high of 32, 2/2 pneumonitis was treated with meropenem and vancomycin however patient had a low grade fever on 06/17, I suspect patient mildly elevated white counts are due to underling lung cancer small loculated pleural effusion, patient was having nausea and vomiting most likely mild gastroperesis as Zofran was not helping on 06/17 started the patient on reglan 5 mg every 8 hours for 48 hours however patient on Zoloft and is a concern for interaction possible QT interval, reduce zoloft to 25mg, placed the patient on tele and monitor. 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 Patient remains clinically stable and continue to monitor. discuss with patient will discharge patient tomorrow. Subjective Date/time seen: 06/20/24 12:28 Interval history: 74yo female squamous cell lung cancer, COPD/emphysema, HTN, insulin-dependent DM, chronic hypoxic respiratory failure on 2L, SHARYN (unable to tolerate) and was recently discharged from [place] for hemoptysis, mucous plugging s/p bronchoscopy here for nausea and vomiting. Tried glucerna on 06/15 but developed dry heaves. Feels weak. Declines SNF with plans for home at discharge. +BM - no diarrhea. No rash. Slight nonproductive cough. +MCGUIRE when up to bedside commode. Persistent LE edema despite keeping them elevated over night. No significant increase in UOP with Lasix Patient presents with nausea and vomiting. White count was elevated on admission. Chest x-ray shows worsened airspace opacities with volume loss in the left apex likely radiation pneumonitis. MRSA nasal swab was negative Leukocytosis on admission with uptrending WBC 19 -> 32.4 No fever, chills or cough. No diarrhea. Started on cefepime and doxycycline but WBC was climbing. Urine culture negative. Sputum culture negative. Blood cultures negative CT Ch/A/P (06/10) showing complete collapse of left lung upper lobe with small loculated left pleural effusion, mild pulmonary edema, radiation fibrosis involving the perihilar regions but no evidence of metastatic disease. CRP 19. Echo showing EF 65-70%, mild concentric LV wall thickness, Grade I diastolic dysfunction, and mild valvular disease. Antibiotics changed to meropenem and vancomycin on 06/10 WBC was up to 32.4K but better at 18K. WBC has remained stable in the 18 range for the past 3 days Suspect she has MDRO causing PNA. Continue current abx for now to complete a 7 days course. Consider adding anti-fungal treatment. Consider re-culturing once off abx. today patient white counts is trending slightly down to 15.6 compare to high of 32, 2/2 pneumonitis was treated with meropenem and vancomycin however patient had a low grade fever on 06/17, I suspect patient mildly elevated white counts are due to underling lung cancer small loculated pleural effusion, patient was having nausea and vomiting most likely mild gastroperesis as Zofran was not helping on 06/17 started the patient on reglan 5 mg every 8 ho
[2024-06-20] MEDS: MAG HYDROX/AL HYDROX/SIMETH 30 ML UDC PO ×2 (14:32→21:32)
[2024-06-20 16:48] LABS: Glucose Point of Care 114 mg/dl (65-105)
[2024-06-20 20:01] LABS: Glucose Point of Care 128 mg/dl (65-105)
[2024-06-20] MEDS: TIZANIDINE HCL 4 MG TABLET PO (21:29)
[2024-06-21] VITALS (12 sets, daily range): BP systolic 103–120; BP diastolic 43–55; PULSE 80–99; RESP 17–20; TEMP 36.4–36.9; O2SAT 91–99
[2024-06-21] MEDS: METOCLOPRAMIDE HCL INJ 10 MG/2 ML VIAL 5 MG IV PUSH ×3 (05:11→20:45)
[2024-06-21] MEDS: CENTRAL LINE FLUSH 10 ML IV PUSH ×3 (05:12→20:46)
[2024-06-21] MEDS: SUCRALFATE 1 GM TABLET PO ×4 (05:12→20:45)
[2024-06-21 05:20] LABS: Hematocrit 25.4 % (37.0-47.0); Hemoglobin 7.7 g/dL (12.0-15.0); Mean Corpuscular HGB Conc 30.3 g/dl (32-36); Mean Corpuscular Hemoglobin 24.9 pg (26-34); Mean Corpuscular Volume 82.2 fl (80-100); Mean Platelet Volume 8.7 fl (7.4-10.4); Platelet Count Result 406 k/mm3 (150-375); Red Blood Count 3.09 M/mm3 (4.2-5.4); Red Cell Distribution Width 17.9 % (11.5-14.5); White Blood Count 16.9 K/mm3 (4.5-10.0)
[2024-06-21 05:30] LABS: Anion Gap 8 mmol/L (4-12); Blood Urea Nitrogen 32 mg/dL (7-17); Calcium 7.9 mg/dL (8.4-10.2); Carbon Dioxide 30 mmol/L (22-30); Chloride 91 mmol/L (98-107); Estimated CRCL calculation 34 ml/min; Estimated Glomerular Filt Rate 34; Glucose 100 mg/dL (65-110); Potassium 3.4 mmol/L (3.4-5.0); Sodium 129 mmol/L (137-145)
[2024-06-21 05:48] LABS: Alveolar/Arterial O2 Gradient 89.8 mmHg; Base Excess ABG 3.6 mEq/l (+/-2.0); Carboxyhemoglobin 0.9 % THb (0-2.0); Fractional Inspired Oxygen 28 %; HCO3 ABG 26.8 mEq/l (22.0-26.0); Methemoglobin ABG 0.3 %THb (0-1.5); Oxygen Content ABG 13.8 %vol (16.0-22.0); Oxygen Saturation ABG 95.2 % (95.0-100.0); Oxyhemoglobin 93.4 % THb (90.0-100.0); PCO2 ABG 35.1 mmHg (35.0-45.0); PO2 ABG 68.4 mmHg (80.0-100.0); PO2 FiO2 Ratio Arterial Blood 2.44 %; Reduced Hemoglobin 5.4 %THb (0-5.0); Total Hemoglobin 10.5 g/dL (12.0-18.0)
[2024-06-21 05:49] LABS: Device NASAL CANNULA; Modified Allen's Test Pass; Site Drawn RIGHT RADIAL
[2024-06-21] MEDS: ALBUTEROL SULFATE NEB 2.5 MG/3 ML INH INHALATION ×4 (07:31→19:44)
[2024-06-21 07:47] LABS: Glucose Point of Care 92 mg/dl (65-105)
[2024-06-21] MEDS: PANTOPRAZOLE SODIUM IV 40 MG VIAL IV PUSH ×2 (08:57→20:45)
[2024-06-21] MEDS: PRAVASTATIN SODIUM 20 MG TABLET BY MOUTH (08:57)
[2024-06-21] MEDS: ROFLUMILAST 500 MCG TABLET PO (08:57)
[2024-06-21] MEDS: LETROZOLE (*CHEMO) 2.5 MG TABLET PO (08:57)
[2024-06-21] MEDS: SERTRALINE HCL 25 MG TABLET PO (08:57)
[2024-06-21] MEDS: APIXABAN 5 MG TABLET PO ×2 (08:57→20:45)
[2024-06-21] MEDS: FLUTICASONE PROPIONATE 0.05% NA SPR 16 GM BTL (*BKC) 2 SPRAY NASAL (08:58)
[2024-06-21] MEDS: dilTIAZem HCL CD 240 MG CAP.24HR PO ×2 (10:23→20:45)
[2024-06-21] MEDS: FUROSEMIDE INJ 40 MG/4 ML VIAL 20 MG IV PUSH ×2 (10:23→16:50)
[2024-06-21 12:06] LABS: Glucose Point of Care 106 mg/dl (65-105)
--- NOTE | 2024-06-21 14:29 | WPDPN ---
Progress Note: A&P Assessment and Plan (1) Nausea and vomiting in adult: Code(s): R11.2 - Nausea with vomiting, unspecified Status: Acute (2) Chronic respiratory failure: Code(s): J96.10 - Chronic respiratory failure, unspecified whether with hypoxia or hypercapnia Status: Acute Assessment and Plan: most likley 2/2 lung cancer and small loculated pleural effusion. (3) Leukocytosis: Code(s): D72.829 - Elevated white blood cell count, unspecified Status: Acute Assessment and Plan: most likely 2/2 lung cancer and small loculated pleural effusion. (4) Hyponatremia: Code(s): E87.1 - Hypo-osmolality and hyponatremia Status: Acute Assessment and Plan: I suspect 2/2 SIADH as patient has lung cancer and lung disease Plan today patient white counts is trending slightly up to 16.9 compare to high of 32, 2/2 pneumonitis was treated with meropenem and vancomycin however patient had a low grade fever on 06/17, I suspect patient mildly elevated white counts are due to underling lung cancer small loculated pleural effusion, patient was having nausea and vomiting most likely mild gastroperesis as Zofran was not helping on 06/17 started the patient on reglan 5 mg every 8 hours for 48 hours however patient on Zoloft and is a concern for interaction possible QT interval, reduce zoloft to 25mg, placed the patient on tele and monitor. 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 Patient remains clinically stable and continue to monitor. discuss with patient will discharge patient tomorrow. Subjective Date/time seen: 06/21/24 14:29 Interval history: 74yo female squamous cell lung cancer, COPD/emphysema, HTN, insulin-dependent DM, chronic hypoxic respiratory failure on 2L, SHARYN (unable to tolerate) and was recently discharged from [place] for hemoptysis, mucous plugging s/p bronchoscopy here for nausea and vomiting. Tried glucerna on 06/15 but developed dry heaves. Feels weak. Declines SNF with plans for home at discharge. +BM - no diarrhea. No rash. Slight nonproductive cough. +MCGUIRE when up to bedside commode. Persistent LE edema despite keeping them elevated over night. No significant increase in UOP with Lasix Patient presents with nausea and vomiting. White count was elevated on admission. Chest x-ray shows worsened airspace opacities with volume loss in the left apex likely radiation pneumonitis. MRSA nasal swab was negative Leukocytosis on admission with uptrending WBC 19 -> 32.4 No fever, chills or cough. No diarrhea. Started on cefepime and doxycycline but WBC was climbing. Urine culture negative. Sputum culture negative. Blood cultures negative CT Ch/A/P (06/10) showing complete collapse of left lung upper lobe with small loculated left pleural effusion, mild pulmonary edema, radiation fibrosis involving the perihilar regions but no evidence of metastatic disease. CRP 19. Echo showing EF 65-70%, mild concentric LV wall thickness, Grade I diastolic dysfunction, and mild valvular disease. Antibiotics changed to meropenem and vancomycin on 06/10 WBC was up to 32.4K but better at 18K. WBC has remained stable in the 18 range for the past 3 days Suspect she has MDRO causing PNA. Continue current abx for now to complete a 7 days course. Consider adding anti-fungal treatment. Consider re-culturing once off abx. today patient white counts is trending slightly up to 16.9 compare to high of 32, 2/2 pneumonitis was treated with meropenem and vancomycin however patient had a low grade fever on 06/17, I suspect patient mildly elevated white counts are due to underling lung cancer small loculated pleural effusion, patient was having nausea and vomiting most likely mild gastroperesis as Zofran was not helping on 06/17 started the patient on reglan 5 mg every 8 hours fo
[2024-06-21] MEDS: ONDANSETRON INJ 4 MG/2 ML VIAL IV PUSH (16:55)
[2024-06-21 17:09] LABS: Glucose Point of Care 103 mg/dl (65-105)
[2024-06-21 19:40] LABS: Glucose Point of Care 114 mg/dl (65-105)
[2024-06-21] MEDS: TIZANIDINE HCL 4 MG TABLET PO (20:45)
[2024-06-21] MEDS: HYDROcodone/acetaminophen (*CRX) 5-325 MG TABLET 1 TAB PO (20:45)
[2024-06-22] VITALS (12 sets, daily range): BP systolic 98–108; BP diastolic 44–54; PULSE 80–107; RESP 18–20; TEMP 36.6–37.4; O2SAT 94–98
[2024-06-22] MEDS: ONDANSETRON INJ 4 MG/2 ML VIAL IV PUSH ×2 (03:01→10:46)
[2024-06-22] MEDS: CENTRAL LINE FLUSH 10 ML IV PUSH ×3 (05:35→21:32)
[2024-06-22] MEDS: SUCRALFATE 1 GM TABLET PO ×4 (05:35→21:32)
[2024-06-22] MEDS: METOCLOPRAMIDE HCL INJ 10 MG/2 ML VIAL 5 MG IV PUSH (05:35)
[2024-06-22 05:54] LABS: Hemoglobin 7.3 g/dL (12.0-15.0); Mean Corpuscular HGB Conc 31.7 g/dl (32-36); Mean Corpuscular Hemoglobin 25.5 pg (26-34); Mean Corpuscular Volume 80.4 fl (80-100); Mean Platelet Volume 8.7 fl (7.4-10.4); Platelet Count Result 368 k/mm3 (150-375); Red Blood Count 2.86 M/mm3 (4.2-5.4); Red Cell Distribution Width 17.8 % (11.5-14.5); White Blood Count 17.4 K/mm3 (4.5-10.0)
[2024-06-22 06:04] LABS: Anion Gap 7 mmol/L (4-12); Blood Urea Nitrogen 33 mg/dL (7-17); Calcium 8.6 mg/dL (8.4-10.2); Carbon Dioxide 30 mmol/L (22-30); Chloride 90 mmol/L (98-107); Estimated CRCL calculation 32 ml/min; Estimated Glomerular Filt Rate 31; Glucose 107 mg/dL (65-110); Potassium 3.1 mmol/L (3.4-5.0); Sodium 127 mmol/L (137-145)
[2024-06-22] MEDS: ALBUTEROL SULFATE NEB 2.5 MG/3 ML INH INHALATION (07:33)
[2024-06-22 08:13] LABS: Glucose Point of Care 113 mg/dl (65-105)
[2024-06-22] MEDS: FLUTICASONE/UMECLIDIN/VILANTER 100-62.5-25 MCG ELLIPTA 1 PUFF INHALATION (09:17)
--- NOTE | 2024-06-22 10:33 | PCNFU ---
Nutrition Follow-Up Complete: Inadequate oral intake related to acute nausea and vomiting as evidenced by patient report, intakes 0-75% Goal:Improve PO intake to at least 50% meals and supplements Pt slowly progressing towards goal. Continue with same goal. Pt current nutrition is Diabetic consistent carb, Ensure Enlive BID. Nutrition recommendation: continue with current plan of care. Last recorded weight is 90 kg. Bowel Motility: +BM 06/21 Labs Reviewed: Hgb:7.3, HCT:23, NA:137, K:3.1, GFR:33, BUN:33, Cr:1.6 Meds Noted: reglan, eliquis, lasix, novolog Skin: WNL Additional Notes: Pt continues on a diabetic diet, intake 10-50%, pt reports poor appetite and c/o nausea and vomiting still. Drinking the Ensure and likes it. Encouraged intake of meals as best as possible and Ensure shakes each meal. Monitoring intakes, weights, labs, stool patterns, supplement tolerance, plan of care Follow up in 5 days.
[2024-06-22] MEDS: PANTOPRAZOLE SODIUM IV 40 MG VIAL IV PUSH ×2 (10:35→21:44)
[2024-06-22] MEDS: POTASSIUM CHLORIDE 20 MEQ ER TABLET 40 MEQ PO (10:35)
[2024-06-22] MEDS: HYDROcodone/acetaminophen (*CRX) 5-325 MG TABLET 1 TAB PO (10:36)
[2024-06-22] MEDS: SERTRALINE HCL 25 MG TABLET PO (10:38)
[2024-06-22] MEDS: LETROZOLE (*CHEMO) 2.5 MG TABLET PO (10:38)
[2024-06-22] MEDS: ROFLUMILAST 500 MCG TABLET PO (10:38)
[2024-06-22] MEDS: PRAVASTATIN SODIUM 20 MG TABLET BY MOUTH (10:38)
[2024-06-22] MEDS: APIXABAN 5 MG TABLET PO ×2 (10:39→21:31)
--- NOTE | 2024-06-22 11:05 | PM.CNPUL ---
Assessment and Plan Assessment and plan (1) COPD (chronic obstructive pulmonary disease): Qualifiers: COPD type: unspecified COPD Qualified Code(s): J44.9 - Chronic obstructive pulmonary disease, unspecified Code(s): J44.9 - Chronic obstructive pulmonary disease, unspecified Status: Acute Assessment and Plan: GOLD grade 2 group E COPD. PFTs 02/03/2021 with FEV1 1.24 L, 50% predicted, ratio 45% predicted, positive bronchodilator response, hyperinflation, mildly decreased DLCO that normalized when adjusted for alveolar volume. Patient with chronic hypoxemic respiratory failure on 2 L nasal cannula 24-7. ABG during this hospitalization 7.50/35/68. There is no evidence of hypercarbic respiratory failure. Patient is maintained on trilogy and Daliresp. 06/22/2024. The patient has no change in her phlegm or cough. She does have some shortness of breath that may be increased from baseline. She feels tight today. Plan: I will change her albuterol 2.5 mg nebs t.i.d. to DuoNebs q.4 hours. I will add budesonide 500 mcg nebulized b.i.d.. I will discontinue her trelegy. She has no wheezing and at this time I will not start systemic steroids. I will follow her clinically and hold off on any antibiotics at this time. Discussed with Dr. Choi, will follow with you. (2) Lung cancer: Qualifiers: Laterality: left Lung location: upper lobe of lung Qualified Code(s): C34.12 - Malignant neoplasm of upper lobe, left bronchus or lung Code(s): C34.90 - Malignant neoplasm of unspecified part of unspecified bronchus or lung Status: Acute Assessment and Plan: follows with [facility]. Last Oncology note 05/21/2024: Oncology note, Dr. Jacoby Kincaid, 1. Pulmonary adenocarcinoma: Concurrent chemo radiotherapy thoracic radiation 06/14/2022 through 07/27/2022. Carboplatinum + paclitaxel cycle 5 07/26/2022. Pembrolizumab cycle 1 on 02/21/2023 and cycle 15 on 02/20/2024. Cycle 16 held on 03/12/2024 for increasing dyspnea and cough in conjunction with CT findings identify pneumonitis. She was prescribed prednisone beginning at 80 the same day which was tapered to 60 on 03/17/2024. Admitted to [facility] on 04/11/2024 for increasing dyspnea with CT showing increased pneumonitis and respiratory viral panel with metapneumovirus. She improved with DuoNebs, antibiotics and increased dose of prednisone. Discharged home on 04/20/2024 with prolonged prednisone taper and doxycycline. She returns today with current dose of prednisone 20 and plans to taper to 10 on 05/26/2024. Lower extremity swelling has improved. CT 05/01/2024 stable spiculated left upper lobe pulmonary nodule with unchanged radiation fibrosis and improved bilateral ground-glass and septal line thickening in the upper lobes when compared to 04/11/2024. No evidence of metastatic disease in the abdomen and pelvis. Plan: 1. Hold pembrolizumab today. Continue Prednisone Paper. Return to clinic 06/18/2024. patient has been off steroids since 06/05/2024. CT scan 06/10/2024 with left upper lobe collapse, loculated pleural effusion right perihilar left upper lobe interstitial infiltrates, no diffuse ground-glass infiltrates. 06/22/24: plan: Will obtain chest x-ray to assess for new infiltrates. Will consider CT of the chest. (3) Obstructive sleep apnea: Onset Date: ~01/2021 Code(s): G47.33 - Obstructive sleep apnea (adult) (pediatric) Status: Acute Assessment and Plan: From last pulmonary clinic note on 05/04/2024: On CPAP 9cmH2O. Not using currently d/t above issues. Continue CPAP. Patient benefits from CPAP use. currently the patient is not using CPAP due to her concurrent illnesses. She has been using 2 L nasal cannula at night. Plan: I will obtain an overnight oximetry on 2 L nasal cannula tonight (4) Nausea and vomiting in adult: Code(s): R11.2 - Nausea with
[2024-06-22 11:11] LABS: Alanine Aminotransferase 36 U/L (6-35); Albumin Level 2.2 g/dL (3.5-5.1); Alkaline Phosphatase 135 U/L (38-126); Anion Gap 8 mmol/L (4-12); Aspartate Amino Transferase 64 U/L (14-36); Bilirubin,Total 0.2 mg/dL (0.2-1.3); Blood Urea Nitrogen 34 mg/dL (7-17); Carbon Dioxide 30 mmol/L (22-30); Chloride 89 mmol/L (98-107); Estimated CRCL calculation 34 ml/min; Estimated Glomerular Filt Rate 34; Glucose 100 mg/dL (65-110); Potassium 3.2 mmol/L (3.4-5.0); Sodium 127 mmol/L (137-145)
[2024-06-22 13:02] LABS: Glucose Point of Care 135 mg/dl (65-105)
[2024-06-22 14:28] LABS: INR 2.3; Prothrombin Time 26.2 Seconds (11.1-14.7)
[2024-06-22 15:13] LABS: NT Pro B Type Natriuretic Pept 1980 pg/mL (19.9-100)
[2024-06-22] MEDS: IPRATROPIUM 0.5 MG/ALBUTEROL SULFATE 2.5 MG AMPUL.NEB 3 ML INHALATION ×2 (15:47→20:30)
[2024-06-22 17:22] LABS: Glucose Point of Care 120 mg/dl (65-105)
[2024-06-22] MEDS: PROCHLORPERAZINE MALEATE 5 MG TABLET PO ×2 (18:31→21:32)
--- NOTE | 2024-06-22 18:56 | WPDPN ---
Progress Note: A&P Assessment and Plan (1) Nausea and vomiting in adult: Code(s): R11.2 - Nausea with vomiting, unspecified Status: Acute (2) Chronic respiratory failure: Code(s): J96.10 - Chronic respiratory failure, unspecified whether with hypoxia or hypercapnia Status: Acute Assessment and Plan: most likley 2/2 lung cancer and small loculated pleural effusion. (3) Leukocytosis: Code(s): D72.829 - Elevated white blood cell count, unspecified Status: Acute Assessment and Plan: most likely 2/2 lung cancer and small loculated pleural effusion. (4) Hyponatremia: Code(s): E87.1 - Hypo-osmolality and hyponatremia Status: Acute Assessment and Plan: I suspect 2/2 SIADH as patient has lung cancer and lung disease Plan today patient white counts is trending slightly up to 16.9 compare to high of 32, 2/2 pneumonitis was treated with meropenem and vancomycin however patient had a low grade fever on 06/17, I suspect patient mildly elevated white counts are due to underling lung cancer small loculated pleural effusion, patient was having nausea and vomiting most likely mild gastroperesis as Zofran was not helping on 06/17 started the patient on reglan 5 mg every 8 hours for 48 hours however patient on Zoloft and is a concern for interaction possible QT interval, reduce zoloft to 25mg, placed the patient on tele and monitor. 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 Patient remains clinically stable and continue to monitor. discuss with patient will discharge patient tomorrow. To further evaluate patient's elevated white count complaints of nausea or vomiting and hypoalbuminemia be consulted almond huller CT scan of the chest was ordred did not show any significant change other than pulmonary nodule, with complaint of persistent nausea and hypoalbumina history of elevated LFT ordered liver ultrasound showed metastasis liver mass, discussed with the patient this to be transferred to [facility], called [facility] they do not have any bed available currently, also patient is not in acute care to be transferred, will consult GI and further recommendation to follow. Subjective Date/time seen: 06/22/24 18:56 Interval history: 74yo female squamous cell lung cancer, COPD/emphysema, HTN, insulin-dependent DM, chronic hypoxic respiratory failure on 2L, SHARYN (unable to tolerate) and was recently discharged from [place] for hemoptysis, mucous plugging s/p bronchoscopy here for nausea and vomiting. Tried glucerna on 06/15 but developed dry heaves. Feels weak. Declines SNF with plans for home at discharge. +BM - no diarrhea. No rash. Slight nonproductive cough. +MCGUIRE when up to bedside commode. Persistent LE edema despite keeping them elevated over night. No significant increase in UOP with Lasix Patient presents with nausea and vomiting. White count was elevated on admission. Chest x-ray shows worsened airspace opacities with volume loss in the left apex likely radiation pneumonitis. MRSA nasal swab was negative Leukocytosis on admission with uptrending WBC 19 -> 32.4 No fever, chills or cough. No diarrhea. Started on cefepime and doxycycline but WBC was climbing. Urine culture negative. Sputum culture negative. Blood cultures negative CT Ch/A/P (06/10) showing complete collapse of left lung upper lobe with small loculated left pleural effusion, mild pulmonary edema, radiation fibrosis involving the perihilar regions but no evidence of metastatic disease. CRP 19. Echo showing EF 65-70%, mild concentric LV wall thickness, Grade I diastolic dysfunction, and mild valvular disease. Antibiotics changed to meropenem and vancomycin on 06/10 WBC was up to 32.4K but better at 18K. WBC has remained stable in the 18 range for the past 3 days Suspect she has MDRO cau
[2024-06-22] MEDS: BUDESONIDE RESPULE NEB 0.5 MG/2 ML AMP INHALATION (20:30)
[2024-06-22] MEDS: MORPHINE SULFATE (*CRX) 2 MG/ML INJ IV PUSH (21:29)
[2024-06-22] MEDS: TIZANIDINE HCL 4 MG TABLET PO (21:32)
[2024-06-22 21:39] LABS: Basophils Percent Auto 0.2 % (0.2-1.2); Hematocrit 22.9 % (37.0-47.0); Hemoglobin 7.3 g/dL (12.0-15.0); Immature Granulocyte Percent A 3.1 % (0-0.5); Lymphocytes Absolute Auto 0.86 K/mm3 (0.9-3.2); Lymphocytes Percent Auto 4.4 % (18.3-44.2); Mean Corpuscular HGB Conc 31.9 g/dl (32-36); Mean Corpuscular Hemoglobin 25.7 pg (26-34); Mean Corpuscular Volume 80.6 fl (80-100); Mean Platelet Volume 8.9 fl (7.4-10.4); Monocytes Absolute Auto 0.9 K/mm3 (0.1-0.6); Monocytes Percent Auto 4.6 % (2.6-8.5); Neutrophils Absolute Auto 17.1 K/mm3 (1.3-6.7); Neutrophils Percent Auto 87.7 % (45.5-73.1); Platelet Count Result 380 k/mm3 (150-375); Red Blood Count 2.84 M/mm3 (4.2-5.4); Red Cell Distribution Width 17.8 % (11.5-14.5); White Blood Count 19.5 K/mm3 (4.5-10.0)
[2024-06-22] MEDS: AMINO ACIDS 5%/D15W/E-LYTES/CA 2,000 ML with MULTIVITAMINS-12 INJ VIAL 1 2.5 ML, MULTIV... 40 ML IV CONT (21:43)
[2024-06-22] MEDS: FAT EMULSIONS IV 20% 250 ML 20 ML IVPB (21:43)
[2024-06-22 21:51] LABS: Partial Thromboplastin Time 50.2 Seconds (22.3-36.8)
[2024-06-22 21:57] LABS: Alanine Aminotransferase 38 U/L (6-35); Albumin Level 2.3 g/dL (3.5-5.1); Alkaline Phosphatase 175 U/L (38-126); Anion Gap 8 mmol/L (4-12); Aspartate Amino Transferase 66 U/L (14-36); Bilirubin,Total 0.3 mg/dL (0.2-1.3); Blood Urea Nitrogen 32 mg/dL (7-17); Calcium 7.8 mg/dL (8.4-10.2); Carbon Dioxide 29 mmol/L (22-30); Chloride 90 mmol/L (98-107); Estimated CRCL calculation 34 ml/min; Estimated Glomerular Filt Rate 34; Glucose 113 mg/dL (65-110); Magnesium 1.8 mg/dL (1.6-2.3); Potassium 3.4 mmol/L (3.4-5.0); Sodium 127 mmol/L (137-145)
[2024-06-22 22:01] LABS: Glucose Point of Care 147 mg/dl (65-105)
[2024-06-22 22:32] LABS: Transferrin < 80 mg/dL (206-381)
[2024-06-23] VITALS (20 sets, daily range): BP systolic 94–126; BP diastolic 41–53; PULSE 84–107; RESP 16–22; TEMP 36.8–37.4; O2SAT 96–100
[2024-06-23] MEDS: HYDROcodone/acetaminophen (*CRX) 5-325 MG TABLET 1 TAB PO ×2 (02:15→20:36)
[2024-06-23] MEDS: IPRATROPIUM 0.5 MG/ALBUTEROL SULFATE 2.5 MG AMPUL.NEB 3 ML INHALATION ×5 (03:08→20:01)
[2024-06-23] MEDS: MORPHINE SULFATE (*CRX) 2 MG/ML INJ IV PUSH ×2 (03:57→17:28)
[2024-06-23] MEDS: CENTRAL LINE FLUSH 10 ML IV PUSH ×5 (03:57→20:38)
[2024-06-23] MEDS: SUCRALFATE 1 GM TABLET PO ×3 (03:57→20:36)
[2024-06-23] MEDS: PROCHLORPERAZINE MALEATE 5 MG TABLET PO ×2 (03:57→16:30)
[2024-06-23 04:23] LABS: Hematocrit 21.1 % (37.0-47.0); Mean Corpuscular HGB Conc 31.3 g/dl (32-36); Mean Corpuscular Hemoglobin 25.3 pg (26-34); Mean Corpuscular Volume 80.8 fl (80-100); Platelet Count Result 358 k/mm3 (150-375); Red Blood Count 2.61 M/mm3 (4.2-5.4); Red Cell Distribution Width 17.9 % (11.5-14.5); White Blood Count 16.4 K/mm3 (4.5-10.0)
[2024-06-23 04:28] LABS: Hemoglobin 6.6 g/dL (12.0-15.0)
--- NOTE | 2024-06-23 04:30 | PC.NURSE ---
I called Dr. Loera at 0430 with a critical. Her phone was turned off and it went straight to voicemoil.
--- NOTE | 2024-06-23 04:36 | PC.NURSE ---
I spoke with Dr. Loera at 0435 to report a critical hemoglobin of 6.6 to which she replied, that is a day shift problem they need to make that decision. I stated that I received a call from the lab and have to notify the hospitalist within a specific time frame on criticals and cannot wait for dayshift. She then stated, fine. what is her blood pressure? I told her it was 104/44. Dr. Loera then stated, fine. give her one unit.
[2024-06-23 04:40] LABS: Anion Gap 4 mmol/L (4-12); Blood Urea Nitrogen 34 mg/dL (7-17); Calcium 7.8 mg/dL (8.4-10.2); Carbon Dioxide 31 mmol/L (22-30); Chloride 92 mmol/L (98-107); Estimated CRCL calculation 34 ml/min; Estimated Glomerular Filt Rate 34; Glucose 142 mg/dL (65-110); Phosphorus 2.8 mg/dL (2.5-4.5); Potassium 3.5 mmol/L (3.4-5.0); Sodium 127 mmol/L (137-145)
[2024-06-23 04:58] LABS: CRP 20.2 mg/dL (<1.0)
[2024-06-23 05:33] LABS: Procalcitonin 3.4 ng/mL
[2024-06-23] MEDS: BUDESONIDE RESPULE NEB 0.5 MG/2 ML AMP INHALATION ×2 (07:12→20:01)
--- NOTE | 2024-06-23 07:52 | PM.PNPUL ---
Progress Note: A&P Assessment and Plan (1) COPD (chronic obstructive pulmonary disease): Qualifiers: COPD type: unspecified COPD Qualified Code(s): J44.9 - Chronic obstructive pulmonary disease, unspecified Code(s): J44.9 - Chronic obstructive pulmonary disease, unspecified Status: Acute Assessment and Plan: GOLD grade 2 group E COPD. PFTs 02/03/2021 with FEV1 1.24 L, 50% predicted, ratio 45% predicted, positive bronchodilator response, hyperinflation, mildly decreased DLCO that normalized when adjusted for alveolar volume. Patient with chronic hypoxemic respiratory failure on 2 L nasal cannula 24-7. ABG during this hospitalization 7.50/35/68. There is no evidence of hypercarbic respiratory failure. Patient is maintained on trilogy and Daliresp. 06/22/2024. The patient has no change in her phlegm or cough. She does have some shortness of breath that may be increased from baseline. She feels tight today. Plan: I will change her albuterol 2.5 mg nebs t.i.d. to DuoNebs q.4 hours. I will add budesonide 500 mcg nebulized b.i.d.. I will discontinue her trelegy. She has no wheezing and at this time I will not start systemic steroids. I will follow her clinically and hold off on any antibiotics at this time. Cefepime from 06/07 through 06/10. Doxycycline 06/07 through 06/11. Vancomycin and meropenem 06/09 through 06/16/24. Later in day CT chest with no change since 06/10/2024 with continued left upper lobe collapse, small effusions loculated effusion in the left upper lobe, 2 6 mm nodules right lower lobe continued right perihilar and left lower lobe evidence of radiation fibrosis. There were no abscesses, no cavitations, no ground-glass infiltrates. There are multiple low-attenuation masses in the liver the largest was 4.1 cm. Patient had an ultrasound of the abdomen demonstrating multiple hypoechoic liver masses measuring up to 2.8 cm. These likely represented metastatic disease. The patient wished for continued treatment options and she was listed for transfer to higher level of care facility [facility] so that her oncology team could provide her with treatment options. 06/23/2024: The patient states that the chest tightness she had yesterday was alleviated by the DuoNebs q.4 hours. She states that she is breathing normal in her cough and phlegm production have improved. She is able to expectorate phlegm. She denies any wheezing. She is afebrile. White blood cell count is 16.4, hemoglobin is 6.6, creatinine is 1.50. Patient is currently on 2 L nasal cannula saturations 94%. Patient had an overnight oximetry on 2 L nasal cannula with recording duration 5 hours and 59 minutes. Average saturation 95%. Low saturation 83%. Time with saturation less than or equal to 88% was 1 minute. Oxygen desaturation index 24.4. Plan: Patient symptomatically improved on DuoNebs q.4 hours and budesonide 500 nebulized b.i.d.. Will continue these today. Goal saturation 90-94% currently on 2 L which is her baseline. She is afebrile. White blood cell count normal. CT scan shows no change from 06/10/2024, no new abscess, cavitations or GGI. Discussed with Dr. Choi, will follow with you. (2) Lung cancer: Qualifiers: Laterality: left Lung location: upper lobe of lung Qualified Code(s): C34.12 - Malignant neoplasm of upper lobe, left bronchus or lung Code(s): C34.90 - Malignant neoplasm of unspecified part of unspecified bronchus or lung Status: Acute Assessment and Plan: follows with D[facility]. Last Oncology note 05/21/2024: Oncology note, Dr. Jacoby Kincaid, 1. Pulmonary adenocarcinoma: Concurrent chemo radiotherapy thoracic radiation 06/14/2022 through 07/27/2022. Carboplatinum + paclitaxel cycle 5 07/26/2022. Pembrolizumab cycle 1 on 02/21/2023 and cycle 15 on 02/20/2024. Cycle 16 held on 03/12/2024 for increasing dyspnea and cough in conjunction with CT finding
[2024-06-23 08:28] LABS: Glucose Point of Care 143 mg/dl (65-105)
[2024-06-23] MEDS: LIDOCAINE HCL 1% PF INJ 5 ML VIAL INFILTRATE (09:15)
--- NOTE | 2024-06-23 10:04 | PCNFU ---
Nutrition Follow-Up Complete: Inadequate oral intake related to acute nausea and vomiting as evidenced by patient report, intakes 0-75% Goal:Improve PO intake to at least 50% meals and supplements Pt not meeting goal. Continue with same goal and encourage intake Pt current nutrition is Diabetic consistent carb, Ensure Enlive BID. Plus new orders for TPN: 03/11 @ 40ml/hr to provide 1182kcals, 48g protein Nutrition recommendation: continue with current plan of care. Last recorded weight is 90 kg. Bowel Motility: +BM 06/21 Labs Reviewed: Hgb:6.6, HCT:21.1, Alb:2.3, NA:127, BUN:34, Cr:1.5, Glu:143 Meds Noted: reglan, eliquis, lasix, novolog Skin: WNL Additional Notes: Pt continues to have suboptimal po intake due to nausea and vomiting. TPN ordered and started. Will provide 60% of energy and protein needs. Agree with plan. Monitoring intakes, weights, labs, stool patterns, supplement tolerance, plan of care Follow up every Saturday and Saturday.
--- NOTE | 2024-06-23 11:04 | PCOTNOTE ---
Per RN, Patient not to be seen at this time. Patient is having low hemoglobin, having consults and conversations with doctors.
[2024-06-23] MEDS: LETROZOLE (*CHEMO) 2.5 MG TABLET PO (11:25)
[2024-06-23] MEDS: PRAVASTATIN SODIUM 20 MG TABLET BY MOUTH (11:25)
[2024-06-23] MEDS: SERTRALINE HCL 25 MG TABLET PO (11:25)
[2024-06-23] MEDS: FUROSEMIDE INJ 40 MG/4 ML VIAL 20 MG IV PUSH (11:26)
[2024-06-23] MEDS: PANTOPRAZOLE SODIUM IV 40 MG VIAL IV PUSH ×2 (11:26→20:38)
[2024-06-23] MEDS: dilTIAZem HCL CD 240 MG CAP.24HR PO ×2 (11:27→20:36)
--- NOTE | 2024-06-23 11:48 | WPDPN ---
Progress Note: A&P Assessment and Plan (1) Nausea and vomiting in adult: Code(s): R11.2 - Nausea with vomiting, unspecified Status: Acute (2) Chronic respiratory failure: Code(s): J96.10 - Chronic respiratory failure, unspecified whether with hypoxia or hypercapnia Status: Acute Assessment and Plan: most likley 2/2 lung cancer and small loculated pleural effusion. (3) Leukocytosis: Code(s): D72.829 - Elevated white blood cell count, unspecified Status: Acute Assessment and Plan: most likely 2/2 lung cancer and small loculated pleural effusion. (4) Hyponatremia: Code(s): E87.1 - Hypo-osmolality and hyponatremia Status: Acute Assessment and Plan: I suspect 2/2 SIADH as patient has lung cancer and lung disease Plan To further evaluate patient's elevated white count complaints of nausea or vomiting and hypoalbuminemia consulted hair machine operator CT scan of the chest was ordered did not show any significant change other than pulmonary nodule, with complaint of persistent nausea and hypoalbumina history of elevated LFT ordered liver ultrasound showed metastasis liver mass, suspect lung cancer, discussed with the patient this to be transferred to [facility], called [facility] they do not have any bed available currently, also patient is not in acutely ill and does not to be transferred. started patient on TPN, as patient has poor po intake. Today patient family is present in the room, and her nurse, patient was asked if she wants to wait to be transferred to [facility] or okay to consult [facility], patient stats she will not sure and want to wait to be transferred. also asked about the code status patient will discuss with children. Will continue to monitor and further recommendation to follow, discuss with Dr. Stacy the pulmonolgist patient is clinically stable no need for steroids or abx. Subjective Date/time seen: 06/23/24 11:48 Interval history: 74yo female squamous cell lung cancer, COPD/emphysema, HTN, insulin-dependent DM, chronic hypoxic respiratory failure on 2L, SHARYN (unable to tolerate) and was recently discharged from [place] for hemoptysis, mucous plugging s/p bronchoscopy here for nausea and vomiting. Tried glucerna on 06/15 but developed dry heaves. Feels weak. Declines SNF with plans for home at discharge. +BM - no diarrhea. No rash. Slight nonproductive cough. +MCGUIRE when up to bedside commode. Persistent LE edema despite keeping them elevated over night. No significant increase in UOP with Lasix Patient presents with nausea and vomiting. White count was elevated on admission. Chest x-ray shows worsened airspace opacities with volume loss in the left apex likely radiation pneumonitis. MRSA nasal swab was negative Leukocytosis on admission with uptrending WBC 19 -> 32.4 No fever, chills or cough. No diarrhea. Started on cefepime and doxycycline but WBC was climbing. Urine culture negative. Sputum culture negative. Blood cultures negative CT Ch/A/P (06/10) showing complete collapse of left lung upper lobe with small loculated left pleural effusion, mild pulmonary edema, radiation fibrosis involving the perihilar regions but no evidence of metastatic disease. CRP 19. Echo showing EF 65-70%, mild concentric LV wall thickness, Grade I diastolic dysfunction, and mild valvular disease. Antibiotics changed to meropenem and vancomycin on 06/10 WBC was up to 32.4K but better at 18K. WBC has remained stable in the 18 range for the past 3 days Suspect she has MDRO causing PNA. Continue current abx for now to complete a 7 days course. Consider adding anti-fungal treatment. Consider re-culturing once off abx. patient white counts is trending slightly up to 16.9 compare to high of 32, 2/2 pneumonitis was treated with meropenem and vancomycin however patient had a low grade fever on 06/17, I suspect patient mildly elevated white coun
[2024-06-23 11:53] LABS: Glucose Point of Care 137 mg/dl (65-105)
--- NOTE | 2024-06-23 13:46 | PCOTNOTE ---
Per Patient's family member. Patient is asleep right now, she got horrible news this morning and has not slept at all recently. Please let her sleep, my cousin, her son is on his way up here to help make decisions about if we want to continue care and have some really difficult conversations. Patient's family member asked if we could check in tomorrow.
--- NOTE | 2024-06-23 16:28 | ECG_ITS ---
Test Date: 2024-06-23 16:43:27 Measurements Intervals [place] Rate: 101 P: 1 LA: 138 QRS: -14 QRSD: 102 T: 37 QT: 337 QTc: 438 Interpretive Statements SINUS TACHYCARDIA WITH FREQUENT VENTRICULAR PREMATURE COMPLEXES NONSPECIFIC T-WAVE ABNORMALITY ABNORMAL RHYTHM ECG Compared to ECG 06/17/2024 15:19:59 Ventricular premature complex(es) now present Electronically Signed On 06-23-2024 18:09:17 CDT by Jose Carrasco M.D.
--- NOTE | 2024-06-23 16:56 | WPDGIPROGNO ---
Progress Note: A&P Assessment and Plan (1) Metastasis to liver: Code(s): C78.7 - Secondary malignant neoplasm of liver and intrahepatic bile duct Status: Acute Assessment and Plan: primary most likely is lung prognosis is guarded, will need follow-up with oncology to decide if needs biopsy or further treatment will follow as needed (2) Lung cancer: Qualifiers: Laterality: left Lung location: upper lobe of lung Qualified Code(s): C34.12 - Malignant neoplasm of upper lobe, left bronchus or lung Code(s): C34.90 - Malignant neoplasm of unspecified part of unspecified bronchus or lung Status: Acute Assessment and Plan: pulmonary on board awaiting transfer to [facility] (3) Symptomatic anemia: Code(s): D64.9 - Anemia, unspecified Status: Acute Assessment and Plan: getting one prbc now probably from metastatic disease (4) Gastritis: Code(s): K29.70 - Gastritis, unspecified, without bleeding Status: Acute Assessment and Plan: iv protonix (5) Nausea and vomiting in adult: Code(s): R11.2 - Nausea with vomiting, unspecified Status: Acute Assessment and Plan: poor oral intake, probably also from metastatic disease on tpn by primary (6) Hyponatremia: Code(s): E87.1 - Hypo-osmolality and hyponatremia Status: Acute Subjective Date/time seen: 06/23/24 16:56 Interval history: I was called again because ultrasound noted liver mets patient has primary lung cancer and received treatment in the past including keytruda Review of Systems Review of Systems: All systems reviewed & are unremarkable except as noted in HPI and below Exam Const: General: cooperative, healthy appearing and comfortable Orientation/consciousness: oriented to person and oriented to place Other: chronically ill appearing HENMT: Head: normal to inspection Eyes: General: appearance normal, both eyes and all related structures Neck: Neck: normal visual inspection Chest: Chest palpation & inspection: normal inspection of the chest Resp: Effort & Inspection: normal respiratory effort Auscultation: no wheezes and diminished lung sounds Other: Few crackles left upper lobe Cardio: Rate: regular rate GI: Inspection: normal to inspection GI Palp: Yes Soft to palpation and No Tenderness to palpation present (GI) Skin: General skin exam: normal color Neuro: General: oriented to person, oriented to place and oriented to time Extrem: General: normal to inspection and edema Psych: Appearance: grossly normal Objective Data Vital Signs Vital Signs: Vital Signs - 24 hr 06/22/24 20:33 06/22/24 20:34 06/22/24 20:46 Temperature Pulse Rate 80 83 Respiratory Rate 20 20 Blood Pressure Pulse Oximetry 95 Oxygen Delivery Nasal Cannula Oxygen Flow Rate 2 Fraction of Inspired Oxygen 06/22/24 20:00 06/22/24 21:55 06/23/24 03:02 Temperature 99.3 F Pulse Rate 107 H 86 Respiratory Rate 20 20 Blood Pressure 104/44 L Pulse Oximetry 95 94 Oxygen Delivery Nasal Cannula Oxygen Flow Rate 2 Fraction of Inspired Oxygen 06/23/24 03:11 06/23/24 07:12 06/23/24 07:12 Temperature Pulse Rate 84 102 H Respiratory Rate 20 20 Blood Pressure Pulse Oximetry 97 Oxygen Delivery Nasal Cannula Oxygen Flow Rate 2 Fraction of Inspired Oxygen 06/23/24 07:26 06/23/24 06:20 06/23/24 11:29 Temperature 98.3 F Pulse Rate 96 88 101 H Respiratory Rate 20 16 20 Blood Pressure 112/48 L Pulse Oximetry 98 Oxygen Delivery Oxygen Flow Rate Fraction of Inspired Oxygen 06/23/24 11:39 06/23/24 11:20 06/23/24 15:16 Temperature 98.8 F Pulse Rate 100 100 100 Respiratory Rate 20 20 Blood Pressure 126/48 L 108/44 L Pulse Oximetry 100 Oxygen Delivery Oxygen Flow Rate Fraction of Inspired Oxygen 06/23/24 15:30 06/23/24 15:25 06/23/24 15:32 Temperature
[2024-06-23 17:03] LABS: Glucose Point of Care 143 mg/dl (65-105)
[2024-06-23 18:03] LABS: Alanine Aminotransferase 35 U/L (6-35); Albumin Level 2.4 g/dL (3.5-5.1); Alkaline Phosphatase 158 U/L (38-126); Anion Gap 8 mmol/L (4-12); Aspartate Amino Transferase 52 U/L (14-36); Bilirubin,Total 0.2 mg/dL (0.2-1.3); Blood Urea Nitrogen 30 mg/dL (7-17); Calcium 7.9 mg/dL (8.4-10.2); Carbon Dioxide 29 mmol/L (22-30); Chloride 90 mmol/L (98-107); Estimated CRCL calculation 36 ml/min; Estimated Glomerular Filt Rate 37; Glucose 156 mg/dL (65-110); Magnesium 1.8 mg/dL (1.6-2.3); Potassium 3.4 mmol/L (3.4-5.0); Sodium 127 mmol/L (137-145); Triglycerides 108 mg/dL (<150)
[2024-06-23 18:13] LABS: Troponin I 0.033 ng/mL (0.000-0.034)
[2024-06-23] MEDS: ONDANSETRON INJ 4 MG/2 ML VIAL IV PUSH (19:23)
[2024-06-23 20:35] LABS: Glucose Point of Care 141 mg/dl (65-105)
[2024-06-23] MEDS: FAT EMULSIONS IV 20% 250 ML 20.83 ML IVPB (20:37)
--- NOTE | 2024-07-16 06:46 | PM.TDS ---
Transfer Discharge Sum: Prov Provider Date of admission: 06/10/24 13:43 Primary care physician: Gina Alvarado NP Admitting clinician: Tony Loera MD Consults: 06/11/24 18:23 Consult to Physician Routine Comment: LVM on his cell @ 18:37pm (-US) Consulting Provider: Jerry Lockhart scallop cutter machine/MD group to consult: GI- [facility] consultant schedule 06-11 says Catina called her she says Dr Lucita pierson i got his VM this evening and LVM for him and added to his list-TH Reason for consultation: epigastric pain Has provider been notified: Yes 06/22/24 Consult to Physician Routine Comment: spoke to @1038 (,) Consulting Provider: Jose Stacy Reason for consultation: hx lung ca, abnormal ABG Has provider been notified: Yes Consult to Physician Routine Comment: spoke to md @[phone] (,) Consulting Provider: Jerry Lockhart scallop cutter machine/MD group to consult: GI Reason for consultation: liver mets Has provider been notified: Yes 06/22/24 19:09 Consult to Dietitian Routine Reason for Consult:: TPN 06/23/24 Consult to Physician Routine Comment: Consulting Provider: Joce Jaramillo Reason for consultation: hx lung ca, new mets to liver, tx options Has provider been notified: No DS: Admitting Diagnosis Discharge Date 06/23/24 Admitting Diagnosis Nausea and vomiting DS: Discharge Diagnosis Discharge Diagnosis (1) Metastasis to liver: Code(s): C78.7 - Secondary malignant neoplasm of liver and intrahepatic bile duct Status: Acute (2) Chronic respiratory failure: Code(s): J96.10 - Chronic respiratory failure, unspecified whether with hypoxia or hypercapnia Status: Acute (3) Gastritis: Code(s): K29.70 - Gastritis, unspecified, without bleeding Status: Acute (4) Epigastric pain: Code(s): R10.13 - Epigastric pain Status: Acute (5) Symptomatic anemia: Code(s): D64.9 - Anemia, unspecified Status: Acute Transfer Discharge Sum: Med Medications Active and Home Medications: Home Medications ascorbate calcium (vitamin C) 500 mg tablet 500 mg PO DAILY 11/26/19 [History Confirmed 06/07/24] cholecalciferol (vitamin D3) 25 mcg (1,000 unit) capsule 1,000 unit PO DAILY 11/26/19 [History Confirmed 06/07/24] thiamine HCl (vitamin B1) 50 mg tablet (Vitamin B-1) 50 mg PO DAILY 11/26/19 [History Confirmed 06/07/24] diltiazem HCl 240 mg capsule,24 hr,extended release 240 mg PO BID 03/21/22 [History Confirmed 06/07/24] tizanidine 4 mg tablet 4 mg PO Q8H PRN muscle spasticity 05/11/22 [History Confirmed 06/07/24] apixaban 5 mg tablet (Eliquis) 5 mg PO BID 07/20/22 [History Confirmed 06/07/24] mecobalamin (vitamin B12) 1,000 mcg lozenges 1,000 mcg PO DAILY 07/20/22 [History Confirmed 06/07/24] letrozole 2.5 mg tablet 2.5 mg PO DAILY 03/04/23 [History Confirmed 06/07/24] hydrocodone 5 mg-acetaminophen 325 mg tablet 1 tablet PO Q4-6H PRN Pain 03/22/23 [History Confirmed 06/07/24] prochlorperazine maleate 10 mg tablet 10 mg PO .PRN 03/22/23 [History Confirmed 06/07/24] triamcinolone acetonide 0.1 % topical cream 1 applic topical TID #30 grams 06/21/23 [Rx Confirmed 06/07/24] pantoprazole 40 mg tablet,delayed release See Rx Instructions .Route .COMPLEX #180 tabs 10/22/23 [Rx Confirmed 06/07/24] albuterol sulfate 90 mcg/actuation aerosol inhaler 1 puff inhalation Q4H PRN shortness of breath or wheezing #8.5 grams 01/01/24 [Rx Confirmed 06/07/24] insulin aspart U-100 100 unit/mL subcutaneous solution (Novolog U-100 Insulin aspart) 1 sliding scale dose subcut USEASDIRECTD 04/27/24 [History Confirmed 06/07/24] albuterol sulfate 2.5 mg/3 mL (0.083 %) solution for nebulization 2.5 mg (3 mL) inhalation QID PRN shortness of breath or wheezing #360 mL 04/29/24 [Rx Confirmed 06/07/24] Trelegy Ellipta 100 mcg-62.5 mcg-25 mcg powder for inhalation (nbrxboivpps-[id number]) 1 inh inhalation Q24H 90 days #180 ea 05/04/24 [R
== END 2024-06-23 21:45 | disposition short-term general hospital (02) | DRG 436 ==
LOC: ANHED 21:20 → ANH3MEDSUR 06-07 02:07
PROVIDERS: Family Medicine; General Practice; Internal Medicine; Internal Medicine Gastroenterology; Internal Medicine Pulmonary Disease; Student in an Organized Health Care Education/Training Program; Admitting Provider Internal Medicine; Emergency Provider Emergency Medicine; PCP Nurse Practitioner; Visit Provider Internal Medicine
PROC: 0DJ08ZZ Inspection of Upper Intestinal Tract, Via Natural or Artificial Opening Endoscopic (ICD-10-PCS; CPT 43235; principal; 2024-06-12 15:30)
DX: C78.7 Secondary malignant neoplasm of liver and intrahepatic bile duct (principal); C34.12 Malignant neoplasm of upper lobe, left bronchus or lung; J96.11 Chronic respiratory failure with hypoxia; Z16.24 Resistance to multiple antibiotics; E87.1 Hypo-osmolality and hyponatremia; R11.2 Nausea with vomiting, unspecified; D63.0 Anemia in neoplastic disease; D72.829 Elevated white blood cell count, unspecified; E78.5 Hyperlipidemia, unspecified; E11.43 Type 2 diabetes mellitus with diabetic autonomic (poly)neuropathy; E87.6 Hypokalemia; E86.0 Dehydration; G25.81 Restless legs syndrome; G47.33 Obstructive sleep apnea (adult) (pediatric); I48.91 Unspecified atrial fibrillation; I10 Essential (primary) hypertension; J43.9 Emphysema, unspecified; K31.84 Gastroparesis; Z90.49 Acquired absence of other specified parts of digestive tract; Z87.891 Personal history of nicotine dependence; Z79.4 Long term (current) use of insulin; Z79.84 Long term (current) use of oral hypoglycemic drugs; Z99.81 Dependence on supplemental oxygen; Z99.89 Dependence on other enabling machines and devices; Z79.01 Long term (current) use of anticoagulants; Z92.21 Personal history of antineoplastic chemotherapy; Z92.3 Personal history of irradiation; Z22.7 Latent tuberculosis
CPT/HCPCS: 36415; 36430; 36569; 36600; 71045; 71250; 74019; 74176; 76705; 80048; 80053; 80069; 80202; 81001; 82274; 82375; 82533; 82570; 82607; 82728; 82746; 82805; 82948; 83036; 83050; 83540; 83550; 83605; 83690; 83735; 83880; 84100; 84132; 84145; 84156; 84300; 84443; 84466; 84478; 84484; 84540; 85014; 85018; 85025; 85027; 85610; 85730; 86140; 86850; 86900; 86901; 86923; 87040; 87070; 87086; 87088; 87205; 87449; 87641; 87899; 88305; 93005; 93306; 93970; 94640; 96366; 96367; 96368; 96372; 96374; 96375; 97110; 97161; 97165; 97530; 97535; 99285; A9270; G0378; J0692; J0696; J0780; J1630; J1642; J1756; J1940; J2185; J2270; J2405; J2470; J2704; J2765; J3370; J3475; J3480; J7040; J7050; J7120; P9016; P9047